=== PATIENT | male | born 1955 | race Caucasian/White ===

== ENCOUNTER → 2017-05-28 | Outpatient (POV) | payer MEDICARE, MEDICAID, SELFPAY | PROVIDERS: Visit Provider Podiatrist | DX: G62.9 Polyneuropathy, unspecified (principal); E11.8 Type 2 diabetes mellitus with unspecified complications; M72.2 Plantar fascial fibromatosis; L84 Corns and callosities | CPT/HCPCS: 99213 ==

== ENCOUNTER 2017-06-11 14:30 | Outpatient (RCR) | payer MEDICARE, MEDICAID, SELFPAY | END 2017-06-26 | LOC: PT 14:30 | PROVIDERS: Visit Provider Podiatrist | DX: M72.2 Plantar fascial fibromatosis (principal) | CPT/HCPCS: G8978; G8979; G8980; 97033; 97035; 97110; 97140; 97161 ==

== ENCOUNTER 2017-07-27 17:34 | Observation (INO) | payer MEDICARE, MEDICAID, SELFPAY ==
[2017-07-27 17:34] VITALS: BP 120/56; PULSE 59; RESP 20; TEMP 36.6; O2SAT 96; BMI 46.8
--- NOTE | 2017-07-27 17:42 | XR_ITS ---
XR chest portable Ordering Physician: Arden Lezama MD Patient Age: 62 years: Male HISTORY: ITS.REASON: CHEST PAIN Chest pain TECHNIQUE: PA and lateral chest COMPARISON :Previous March 23, 2017 also February 2016. FINDINGS Stable chest with nothing definitely acute. Lungs clear with no active disease. No pneumothorax. No pleural effusion. Chest wall unremarkable. T-spine intact and stable. The left AC joint is a more generous than right but unchanged as prior studies. Heart upper normal in size borderline cardiomegaly. Normal pulmonary vascularity Again we see minimal density towards the left cardiac apex which reflects most likely anterior fat pad similar to multiple previous studies IMPRESSION: Stable chest nothing definitely acute. Borderline cardiomegaly.
[2017-07-27 18:03] LABS: Basophils % 0.5 % (0.1-2.0); Eosinophils # 0.3 K/mm3 (0.0-0.4); Eosinophils % 3.5 % (0.1-12.0); Hematocrit 42.3 % (42.0-52.0); Hemoglobin 14.1 g/dL (14.1-18.0); Lymphocytes # 2.4 K/mm3 (0.7-4.5); Lymphocytes % 28.8 K/mm3 (10-50); Mean Corpuscular HGB Conc 33.3 g/dL (31.8-35.4); Mean Corpuscular Hemoglobin 30.7 pg (27.0-31.2); Mean Platelet Volume 8.9 fl (7.4-10.4); Monocytes # 0.5 K/mm3 (0.1-1.0); Monocytes % 6.4 % (1.7-9.3); Neutrophils # 5.1 K/mm3 (1.8-7.8); Neutrophils % 60.8 % (37.0-80.0); Platelet Count 198 K/mm3 (142-424); White Blood Count 8.5 K/mm3 (4.8-10.8)
[2017-07-27 18:31] LABS: Alanine Aminotransferase 30 U/L (12-78); Albumin Level 4.1 gm/dL (3.4-5.0); Albumin/Globulin Ratio 1.3 (1.1-1.8); Alkaline Phosphatase 60 U/L (46-116); Anion Gap 13.3 mEq/L (5-15); Aspartate Amino Transferase 20 U/L (15-37); Bilirubin,Total 0.3 mg/dL (0.2-1.0); Blood Urea Nitrogen 25 mg/dL (7-18); CKMB Relative Index 0.5 U/L (0-4.0); Carbon Dioxide 29 mmol/L (21.0-32.0); Chloride 104 mmol/L (98-107); Creatine Kinase 188 U/L (39-308); Creatine Kinase MB 0.9 mg/ml (0.0-3.6); Creatinine Clearance Estimated 56 mL/min (0-300); Creatinine,Serum 1.33 mg/dL (0.70-1.30); Estimated Glomerular Filt Rate 55 ml/min (>60); GFR (African American) 66 ML/MIN (>60); Globulin 3.2 gm/dl (1.3-3.2); Glucose 150 mg/dL (74-106); Potassium 4.3 mmoL/L (3.5-5.1); Sodium 142 mmol/L (136-145); Total Protein,Serum 7.3 gm/dL (6.4-8.2); Troponin I < 0.02 ng/ml (0.00-0.06)
--- NOTE | 2017-07-27 19:12 | [facility].EDCP ---
ED Disposition Clinical Impression: Chest pain Qualifiers: Chest pain type: precordial pain Qualified Code(s): R07.2 - Precordial pain Chronic kidney disease Qualifiers: Chronic kidney disease stage: unspecified stage Qualified Code(s): N18.9 - Chronic kidney disease, unspecified Disposition: Admitted as Observation Condition on Discharge: Good - Critical Care Critical Care Time: No Attestation: On 07/27/17, the high probability of a clinically significant, sudden or life threatening deterioration of the following system(s) required my full and direct attention, intervention and personal management. The time I documented below is in addition to time spent performing reported procedures but includes the following listed in this critical care notation. Medical Decision Making - Medical Records Medical records reviewed: Yes: I reviewed the patient's medical records. Vital Signs: 07/27/17 17:34 Temperature 97.9 F Temperature Source Temporal Artery Scan Pulse Rate [Right Brachial] 59 L Respiratory Rate 20 Blood Pressure [Right Radial Artery] 120/56 Blood Pressure Mean [Right Radial Artery] 77 Blood Pressure Source [Right Radial Artery] Automatic Cuff Blood Pressure Position [Right Radial Artery] Sitting 02 Sat by Pulse Oximetry 96 Oxygen Delivery Method Room Air - Lab Data Lab results reviewed: Yes: I reviewed the patient's lab results. Lab Results 07/27/17 17:50: WBC 8.5, RBC 4.60, Hgb 14.1, Hct 42.3, MCV 92.0, MCH 30.7, MCHC 33.3, RDW 14.0, Plt Count 198, MPV 8.9, Neut % (Auto) 60.8, Lymph % (Auto) 28.8, [place] % (Auto) 6.4, Eos % (Auto) 3.5, Baso % (Auto) 0.5, Neut # (Auto) 5.1, Lymph # (Auto) 2.4, [place] # (Auto) 0.5, Eos # (Auto) 0.3, Baso # (Auto) 0.0 07/27/17 17:50: Sodium 142, Potassium 4.3, Chloride 104, Carbon Dioxide 29, Anion Gap 13.3, BUN 25 H, Creatinine 1.33 H, Estimated Creat Clear 56, Estimated GFR 55 L, Est GFR ( Amer) 66, Glucose 150 H, Calcium 9.0, Total Bilirubin 0.3, AST 20, ALT 30, Alkaline Phosphatase 60, Total Creatine Kinase 188, CK-MB (CK-2) 0.9, CK-MB (CK-2) Rel Index 0.5, Troponin I < 0.02, Total Protein 7.3, Albumin 4.1, Globulin 3.2, Albumin/Globulin Ratio 1.3 Result diagrams: 07/27/17 17:50 07/27/17 17:50 Orders (Tests/Meds): ED MEDICATIONS Discontinued Medications Generic Name Dose Route Start Last Admin Trade Name Keeley PRN Reason Stop Dose Admin Aspirin 243 mg 07/27/17 18:26 07/27/17 19:03 Aspirin 81mg Chewable Tablet PO 07/27/17 18:27 243 mg ONCE ONE Administration Nitroglycerin 0.4 mg 07/27/17 18:33 07/27/17 19:03 Nitrostat 0.4mg Sl Tablet SL 07/27/17 18:34 0.4 mg ONCE ONE Administration Nitroglycerin 1 gm 07/27/17 19:12 07/27/17 19:20 Nitroglycerin 1 Inch Oint Udp TD 07/27/17 19:13 1 gm ONCE ONE Administration - Radiology Data #1 Image Reviewed: Yes I reviewed the patient's radiology image Preliminary Findings: Normal/NAD - ECG Data Tracing #1 I reviewed this ECG and interpreted as documented below: Ischemic changes: non-specific ST-T wave changes - Physician Consults Physician Consulted: whitney Reason -: Admission - [place] Inquiry Pt receiving controlled substance: No Chest Pain HPI - General Chief Complaint: Chest Pain Stated Complaint: CHEST PAIN Time Seen by Provider: 07/27/17 19:12 Mode of Arrival: EMS Source of Information: Patient, Spouse, Medical Record Limitations: No Limitations Description of Symptoms (Recalled from ER Triage Doc. by RN): PT C/O LEFT CHEST PAIN OF A 7 OUT OF 10 AND FEELS LIKE PRESSURE. PAIN STARTED THURSDAY BUT IS WORSE NOW. - History of Present Illness HPI narrative: pt with chest pain over the last few days - worse tonight with chest pain as pressure and new onset MD complaint: chest pain indicative of cardiac Onset (ago): day(s) Duration: intermittent Activity at onset: during rest Pain location: left chest Severity: moderate Quality: heaviness Re
--- NOTE | 2017-07-27 19:15 | ED_ITS ---
ED Disposition Clinical Impression: Chest pain Qualifiers: Chest pain type: precordial pain Qualified Code(s): R07.2 - Precordial pain Chronic kidney disease Qualifiers: Chronic kidney disease stage: unspecified stage Qualified Code(s): N18.9 - Chronic kidney disease, unspecified Disposition: Admitted as Observation Condition on Discharge: Good - Critical Care Critical Care Time: No Attestation: On 07/27/17, the high probability of a clinically significant, sudden or life threatening deterioration of the following system(s) required my full and direct attention, intervention and personal management. The time I documented below is in addition to time spent performing reported procedures but includes the following listed in this critical care notation. Medical Decision Making - Medical Records Medical records reviewed: Yes: I reviewed the patient's medical records. Vital Signs: 07/27/17 17:34 Temperature 97.9 F Temperature Source Temporal Artery Scan Pulse Rate [Right Brachial] 59 L Respiratory Rate 20 Blood Pressure [Right Radial Artery] 120/56 Blood Pressure Mean [Right Radial Artery] 77 Blood Pressure Source [Right Radial Artery] Automatic Cuff Blood Pressure Position [Right Radial Artery] Sitting 02 Sat by Pulse Oximetry 96 Oxygen Delivery Method Room Air - Lab Data Lab results reviewed: Yes: I reviewed the patient's lab results. Lab Results 07/27/17 17:50: WBC 8.5, RBC 4.60, Hgb 14.1, Hct 42.3, MCV 92.0, MCH 30.7, MCHC 33.3, RDW 14.0, Plt Count 198, MPV 8.9, Neut % (Auto) 60.8, Lymph % (Auto) 28.8 , [place] % (Auto) 6.4, Eos % (Auto) 3.5, Baso % (Auto) 0.5, Neut # (Auto) 5.1, Lymph # (Auto) 2.4, [place] # (Auto) 0.5, Eos # (Auto) 0.3, Baso # (Auto) 0.0 07/27/17 17:50: Sodium 142, Potassium 4.3, Chloride 104, Carbon Dioxide 29, Anion Gap 13.3, BUN 25 H, Creatinine 1.33 H, Estimated Creat Clear 56, Estimated GFR 55 L, Est GFR ( Amer) 66, Glucose 150 H, Calcium 9.0, Total Bilirubin 0.3, AST 20, ALT 30, Alkaline Phosphatase 60, Total Creatine Kinase 188, CK-MB (CK-2) 0.9, CK-MB (CK-2) Rel Index 0.5, Troponin I < 0.02, Total Protein 7.3, Albumin 4.1, Globulin 3.2, Albumin/Globulin Ratio 1.3 Result diagrams: 07/27/17 17:50 07/27/17 17:50 Orders (Tests/Meds): ED MEDICATIONS Discontinued Medications Generic Name Dose Route Start Last Admin Trade Name Keeley PRN Reason Stop Dose Admin Aspirin 243 mg 07/27/17 18:26 07/27/17 19:03 Aspirin 81mg Chewable Tablet PO 07/27/17 18:27 243 mg ONCE ONE Administration Nitroglycerin 0.4 mg 07/27/17 18:33 07/27/17 19:03 Nitrostat 0.4mg Sl Tablet SL 07/27/17 18:34 0.4 mg ONCE ONE Administration Nitroglycerin 1 gm 07/27/17 19:12 07/27/17 19:20 Nitroglycerin 1 Inch Oint Udp TD 07/27/17 19:13 1 gm ONCE ONE Administration - Radiology Data #1 Image Reviewed: Yes I reviewed the patient's radiology image Preliminary Findings: Normal/NAD - ECG Data Tracing #1 I reviewed this ECG and interpreted as documented below: Ischemic changes: non-specific ST-T wave changes - Physician Consults Physician Consulted: whitney Reason -: Admission - [place] Inquiry Pt receiving controlled substance: No Chest Pain HPI - General Chief Complaint: Chest Pain Stated Complaint: CHEST PAIN Time Seen by Provider: 07/27
[2017-07-27 20:00] VITALS: PULSE 60
[2017-07-27 20:45] VITALS: BP 152/81; PULSE 67; RESP 18; TEMP 36.6; O2SAT 96
[2017-07-27 21:27] VITALS: BMI 48.6
[2017-07-27 22:26] VITALS: O2SAT 95
[2017-07-27 22:48] LABS: POC Glucose,Bedside 171 mg/dL
[2017-07-28] VITALS: BP 111/73; PULSE 60; PULSE 64; RESP 15; TEMP 36.6; O2SAT 95
[2017-07-28 00:03] VITALS: O2SAT 97
[2017-07-28 04:00] VITALS: PULSE 50
[2017-07-28 04:08] VITALS: BP 147/52; PULSE 58; RESP 16; TEMP 36.7; O2SAT 94
[2017-07-28 05:39] LABS: POC Glucose,Bedside 113 mg/dL
[2017-07-28 06:15] LABS: Basophils % 0.5 % (0.1-2.0); Eosinophils # 0.2 K/mm3 (0.0-0.4); Hematocrit 38.9 % (42.0-52.0); Lymphocytes # 1.8 K/mm3 (0.7-4.5); Lymphocytes % 28.2 K/mm3 (10-50); Mean Corpuscular HGB Conc 33.3 g/dL (31.8-35.4); Mean Corpuscular Hemoglobin 30.5 pg (27.0-31.2); Mean Corpuscular Volume 91.6 fl (80-94); Mean Platelet Volume 9.2 fl (7.4-10.4); Monocytes # 0.4 K/mm3 (0.1-1.0); Neutrophils # 3.9 K/mm3 (1.8-7.8); Neutrophils % 61.3 % (37.0-80.0); Platelet Count 168 K/mm3 (142-424); Red Blood Count 4.25 M/mm3 (4.60-6.20); White Blood Count 6.3 K/mm3 (4.8-10.8)
[2017-07-28 06:26] LABS: Anion Gap 10.9 mEq/L (5-15); Blood Urea Nitrogen 20 mg/dL (7-18); Carbon Dioxide 29 mmol/L (21.0-32.0); Chloride 108 mmol/L (98-107); Chol/HDL Ratio 3.2 (1-3.5); Cholesterol 107 mg/dL (140-200); Creatinine Clearance Estimated 60 mL/min (0-300); Creatinine,Serum 1.25 mg/dL (0.70-1.30); Estimated Glomerular Filt Rate 59 ml/min (>60); GFR (African American) 71 ML/MIN (>60); Glucose 111 mg/dL (74-106); HDL Cholesterol 33 mg/dL (27-67); LDL Cholesterol 44 mg/dL (0-130); Potassium 3.9 mmoL/L (3.5-5.1); Sodium 144 mmol/L (136-145); Triglycerides 151 mg/dL (30-200); VLDL Cholesterol 30 mg/dL (0-40)
[2017-07-28 06:32] LABS: Troponin I < 0.02 ng/ml (0.00-0.06)
--- NOTE | 2017-07-28 06:44 | CA_ITS ---
PROCEDURE: 2-D M-mode and color Doppler study INDICATIONS FOR THE TEST: Chest pain X COPD Heart Murmur Tobacco Smoking Palpitations Fatigue Syncope Edema HypertensionXDiabetes MellitusX Rheumatic Fever SOB KEANE ObesityXHyperlipidemiaX Family History HD Additional History PATIENT INFORMATION HEIGHT: 68 WEIGHT:320 GENDER: Male B/P:129/85 2-D/M-MODE INTERPRETATION: 2-D MEASUREMENTS OBSERVED VALUES IN CMS Right Ventricular Dimension (RVDd) 2.9 Interventricular Septum (Thickness)(IVsd) 1.1 Left Ventricular Internal Dimensions(LVIDd) 5.7 Left Ventricular Posterior Wall (Thickness)(LVPWd) 1.0 Aortic Root 3.5 Aortic Cusp Separation 2.0 Left Atrial Dimensions (LAD) 3.8 2D 1. Left atrium is mildly enlarged, left ventricle is normal size, there is mild concentric left ventricular hypertrophy, visually estimated ejection fraction 55% with no obvious regional wall motion abnormality. 2. The right atrium and right ventricle are mildly enlarged with normal contractility. 3. The aortic valve is minimally thickened and fibrosed. 4. The mitral and tricuspid valve leaflets are minimally thickened. 5. The pulmonic valve is poorly visualized 6. No significant pericardial effusion noted. DOPPLER INTERROGATION: Doppler interrogation of the aortic, mitral and tricuspid valvular presence of mild mitral and tricuspid regurgitation, tricuspid and jet velocity insufficient for calculation of the right ventricular systolic pressure, grade 1 diastolic dysfunction seen with tissue Doppler evidence of raised left atrial pressure. CONCLUSION: 1. Mildly enlarged left atrium, normal left ventricular size, mild concentric hypertrophy, visually estimated ejection fraction 55% with no obvious regional wall motion abnormality, grade 1 diastolic dysfunction seen with tissue Doppler evidence of raised left atrial pressure. 2. Mild mitral and tricuspid regurgitation 3. No significant pericardial effusion noted.
--- NOTE | 2017-07-28 07:19 | HMH.HP ---
*Admission Date: 07/27/17 *Chief complaint: Chest pain *History of present illness: 62-year-old male with hypertension, diabetes, chronic kidney disease, chronic pain in the back presented to the emergency department with a 2 day history of left-sided pectoral chest pain. Patient cannot give the pain a very good description and describes it as just the pain . Pain was occurring intermittently starting on Thursday but by Thursday (the day of admission) pain became near constant. He had some associated shortness of breath although patient does have underlying COPD and is morbidly obese. When pain became more frequent and intense he presented to the emergency department. Cardiac workup was begun in the emergency department and was unrevealing. Patient was admitted for serial enzymes and cardiology consultation and patient had cardiac catheterization a few years ago by Dr. London and had nonobstructive disease [facility] History Medical History: Reports:: Chronic Obstructive Pulmonary Disease (COPD), Diabetes Mellitus Type 2, Gastroesophageal Reflux Disease(GERD), Hyperlipidemia, Hypertension, MRSA (AFTER RT HIP REPLACEMENT; NEEDED FOLLOW UP SX), Palpitations Denies:: Aneurysm, Anxiety, Asthma, Atrial Fibrillation, Cancer, Congestive Heart Failure, Coronary Artery Disease, Cerebrovascular Accident, Deep Vein Thrombosis, Diabetes Mellitus Type 1, Kidney Stones, Myocardial Infarction, Pulmonary Embolism, Supraventricular Tachycardia, Transient Ischemic Attacks (TIA), Valvular Heart Disease Other Medical History: Reports: Anemia, Arthritis. Denies: Cataracts, Glaucoma, Hypothyroidism, Thyroid Disease Laterality Cases: Left: Other, Bilateral: Arthroscopy Hip, Total Hip Replacement Other Surgeries: Yes: Other (CHOLECYSTECTOMY, LT WRIST) Amputation: No Fractures: No - *Social History Educational Level: Attended High School Smoking Status: Former smoker Tobacco Type: cigarettes #Yrs smoked (if former smoker): 1 Smoking End Date: UNKNOWN; SEVERAL YRS Alcohol Intake: never Alcohol Intake Frequency:: 0-2 drinks per day Occupational Status: retired Housing: other Household Members: spouse - Psychiatric History Expresses thoughts of harming self/others: None Suicide Plan Description: No Plan Pschychiatric History:: Denies:: Anxiety *Family Hx:: Diabetes, Heart Attack, Hyperlipidemia, Hypertension Review of Systems - Review of Systems Review of systems:: pertinent systems reviewed and negative unless documented below - *Cardiovascular Reports chest pain, Reports shortness of breath, Reports leg swelling - *Respiratory Denies change in phlegm color, Denies chest congestion, Denies cough - *Gastrointestinal Denies abdominal pain, Denies belching - *Musculoskeletal Reports abnormal walking, Reports joint pain, Reports back pain - *Neurologic Denies seizure-like activity Meds Home Medications Medication Instructions Recorded Confirmed Type amlodipine 10 mg tablet 10 mg PO QDAY 07/06/17 07/28/17 History amlodipine 5 mg tablet 5 mg PO QDAY 07/06/17 07/28/17 History atenolol 100 mg tablet 100 mg PO QDAY 07/06/17 07/28/17 History citalopram 20 mg tablet 20 mg PO QDAY 07/06/17 07/28/17 History furosemide 40 mg tablet 40 mg PO BID tab 07/06/17 07/28/17 History gabapentin 300 mg capsule 600 mg PO TID cap 07/06/17 07/28/17 History hydrocodone 10 mg-acetaminophen 1 tab PO Q6H PRN 07/06/17 07/28/17 History 325 mg tablet insulin degludec 100 unit/mL (3 120 unit SUB-Q QDAY ml 07/06/17 07/28/17 History mL) subcutaneous pen metoclopramide 10 mg tablet 10 mg PO AC 07/06/17 07/28/17 History omeprazole 40 mg capsule,delayed 40 mg PO QDAY 07/06/17 07/28/17 History release temazepam 30 mg capsule 30 mg PO QHS 07/06/17 07/28/17 History valsartan 320 mg tablet 320 mg PO QDAY 07/06/17 07/28/17 History Allopurinol [Allopurinol 100mg 100 mg PO DAILY 07/27/17 07/28/17 History tablet] Bisoprolol Fumarate 10 mg PO DAILY 07/27/17 07/28/17 History
--- NOTE | 2017-07-28 07:22 | P.HP_ITS ---
*Admission Date: 07/27/17 *Chief complaint: Chest pain *History of present illness: 62-year-old male with hypertension, diabetes, chronic kidney disease, chronic pain in the back presented to the emergency department with a 2 day history of left-sided pectoral chest pain. Patient cannot give the pain a very good description and describes it as just the pain . Pain was occurring intermittently starting on Thursday but by Thursday (the day of admission) pain became near constant. He had some associated shortness of breath although patient does have underlying COPD and is morbidly obese. When pain became more frequent and intense he presented to the emergency department. Cardiac workup was begun in the emergency department and was unrevealing. Patient was admitted for serial enzymes and cardiology consultation and patient had cardiac catheterization a few years ago by Dr. 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 Denies: Cataracts, Glaucoma , Hypothyroidism, Thyroid Disease Laterality Cases: Left: Other, Bilateral: Arthroscopy Hip, Total Hip Replacement Other Surgeries: Yes: Other (CHOLECYSTECTOMY, LT WRIST) Amputation: No Fractures: No - *Social History Educational Level: Attended High School Smoking Status: Former smoker Tobacco Type: cigarettes #Yrs smoked (if former smoker): 1 Smoking End Date: UNKNOWN; SEVERAL YRS Alcohol Intake: never Alcohol Intake Frequency:: 0-2 drinks per day Occupational Status: retired Housing: other Household Members: spouse - Psychiatric History Expresses thoughts of harming self/others: None Suicide Plan Description: No Plan Pschychiatric History:: Denies:: Anxiety *Family Hx:: Diabetes, Heart Attack, Hyperlipidemia, Hypertension Review of Systems - Review of Systems Review of systems:: pertinent systems reviewed and negative unless documented below - *Cardiovascular Reports chest pain, Reports shortness of breath, Reports leg swelling - *Respiratory Denies change in phlegm color, Denies chest congestion, Denies cough - *Gastrointestinal Denies abdominal pain, Denies belching - *Musculoskeletal Reports abnormal walking, Reports joint pain, Reports back pain - *Neurologic Denies seizure-like activity Meds Home Medications Medication Instructions Recorded Confirmed Type amlodipine 10 mg tablet 10 mg PO QDAY 07/06/17 07/28/17 History amlodipine 5 mg tablet 5 mg PO QDAY 07/06/17 07/28/17 History atenolol 100 mg tablet 100 mg PO QDAY 07/06/17 07/28/17 History citalopram 20 mg tablet 20 mg PO QDAY 07/06/17 07/28/17 History furosemide 40 mg tablet 40 mg PO BID tab 07/06/17 07/28/17 History gabapentin 300 mg capsule 600 mg PO TID cap 07/06/17 07/28/17 History hydrocodone 10 mg-acetaminophen 1 tab PO Q6H PRN 07/06/17 07/28/17 History 325 mg tablet insulin degludec 100 unit/mL (3 120 unit SUB-Q QDAY ml 07/06/17 07/28/17 History mL) subcutaneous pen
[2017-07-28 08:00] VITALS: BP 133/80; PULSE 58; PULSE 60; PULSE 61; RESP 14; RESP 18; TEMP 36.7; O2SAT 94; O2SAT 95
--- NOTE | 2017-07-28 09:05 | HMH.CARDCON2 ---
History of Present Illness Consult date: 07/28/17 Requesting physician: Kevin Leon Consult reason: chest pain Chief complaint: chest pain History of present illness: 62-year-old male with hypertension, diabetes, chronic kidney disease, chronic pain in the back presented to the emergency department with a 2 day history of left-sided pectoral chest pain. Patient cannot give the pain a very good description and describes it as just the pain . Pain was occurring intermittently starting on Thursday but by Thursday (the day of admission) pain became near constant. He had some associated shortness of breath although patient does have underlying COPD and is morbidly obese. When pain became more frequent and intense he presented to the emergency department. Cardiac workup was begun in the emergency department and was unrevealing. Patient was admitted for serial enzymes and cardiology consultation and patient had cardiac catheterization a few years ago by Dr. London and had nonobstructive disease. The above per Dr. Leon. Pt relates some worseing of pain with breathing or arm movement but also with walking around his home. Similar symptoms last year for which a stress test was recommended but never done. EKG sinus rhythm with first degree AV block and no acute changes. Troponins normal X 2. Review of Systems - *Cardiovascular Reports chest pain - *Respiratory Reports shortness of breath with activity - *Musculoskeletal Reports back pain - *Neurologic Reports abnormal walking, Denies seizure-like activity [facility] History Medical History: Reports:: Chronic Obstructive Pulmonary Disease (COPD), Diabetes Mellitus Type 2, Gastroesophageal Reflux Disease(GERD), Hyperlipidemia, Hypertension, MRSA (AFTER RT HIP REPLACEMENT; NEEDED FOLLOW UP SX), Palpitations Denies:: Aneurysm, Anxiety, Asthma, Atrial Fibrillation, Cancer, Congestive Heart Failure, Coronary Artery Disease, Cerebrovascular Accident, Deep Vein Thrombosis, Diabetes Mellitus Type 1, Kidney Stones, Myocardial Infarction, Pulmonary Embolism, Supraventricular Tachycardia, Transient Ischemic Attacks (TIA), Valvular Heart Disease Other Medical History: Reports: Anemia, Arthritis. Denies: Cataracts, Glaucoma, Hypothyroidism, Thyroid Disease Laterality Cases: Left: Other, Bilateral: Arthroscopy Hip, Total Hip Replacement Other Surgeries: Yes: Other (CHOLECYSTECTOMY, LT WRIST) Amputation: No Fractures: No - *Social History Educational Level: Attended High School Smoking Status: Former smoker Tobacco Type: cigarettes #Yrs smoked (if former smoker): 1 Smoking End Date: UNKNOWN; SEVERAL YRS Alcohol Intake: never Alcohol Intake Frequency:: 0-2 drinks per day Occupational Status: retired Housing: other Household Members: spouse - Psychiatric History Expresses thoughts of harming self/others: None Suicide Plan Description: No Plan Pschychiatric History:: Denies:: Anxiety *Family Hx:: Diabetes, Heart Attack, Hyperlipidemia, Hypertension Meds Home Medications Medication Instructions Recorded Confirmed Type amlodipine 10 mg tablet 10 mg PO QDAY 07/06/17 07/28/17 History amlodipine 5 mg tablet 5 mg PO QDAY 07/06/17 07/28/17 History atenolol 100 mg tablet 100 mg PO QDAY 07/06/17 07/28/17 History citalopram 20 mg tablet 20 mg PO QDAY 07/06/17 07/28/17 History furosemide 40 mg tablet 40 mg PO BID tab 07/06/17 07/28/17 History gabapentin 300 mg capsule 600 mg PO TID cap 07/06/17 07/28/17 History hydrocodone 10 mg-acetaminophen 1 tab PO Q6H PRN 07/06/17 07/28/17 History 325 mg tablet insulin degludec 100 unit/mL (3 120 unit SUB-Q QDAY ml 07/06/17 07/28/17 History mL) subcutaneous pen metoclopramide 10 mg tablet 10 mg PO AC 07/06/17 07/28/17 History omeprazole 40 mg capsule,delayed 40 mg PO QDAY 07/06/17 07/28/17 History release temazepam 30 mg capsule 30 mg PO QHS 07/06/17 07/28/17 History valsartan 320 mg tablet 320 mg PO QDAY 07/06/17 07/28/17 History Allopurinol [Allopurinol
--- NOTE | 2017-07-28 09:09 | P.CONS_ITS ---
History of Present Illness Consult date: 07/28/17 Requesting physician: Kevin Leon Consult reason: chest pain Chief complaint: chest pain History of present illness: 62-year-old male with hypertension, diabetes, chronic kidney disease, chronic pain in the back presented to the emergency department with a 2 day history of left-sided pectoral chest pain. Patient cannot give the pain a very good description and describes it as just the pain . Pain was occurring intermittently starting on Thursday but by Thursday (the day of admission) pain became near constant. He had some associated shortness of breath although patient does have underlying COPD and is morbidly obese. When pain became more frequent and intense he presented to the emergency department. Cardiac workup was begun in the emergency department and was unrevealing. Patient was admitted for serial enzymes and cardiology consultation and patient had cardiac catheterization a few years ago by Dr. London and had nonobstructive disease. The above per Dr. Leon. Pt relates some worseing of pain with breathing or arm movement but also with walking around his home. Similar symptoms last year for which a stress test was recommended but never done. EKG sinus rhythm with first degree AV block and no acute changes. Troponins normal X 2. Review of Systems - *Cardiovascular Reports chest pain - *Respiratory Reports shortness of breath with activity - *Musculoskeletal Reports back pain - *Neurologic Reports abnormal walking, Denies seizure-like activity [facility] History Medical History: Reports:: Chronic Obstructive Pulmonary Disease (COPD), Diabetes Mellitus Type 2, Gastroesophageal Reflux Disease(GERD), Hyperlipidemia , Hypertension, MRSA (AFTER RT HIP REPLACEMENT; NEEDED FOLLOW UP SX), Palpitations Denies:: Aneurysm, Anxiety, Asthma, Atrial Fibrillation, Cancer, Congestive Heart Failure, Coronary Artery Disease, Cerebrovascular Accident, Deep Vein Thrombosis, Diabetes Mellitus Type 1, Kidney Stones, Myocardial Infarction, Pulmonary Embolism, Supraventricular Tachycardia, Transient Ischemic Attacks ( TIA), Valvular Heart Disease Other Medical History: Reports: Anemia, Arthritis. Denies: Cataracts, Glaucoma , Hypothyroidism, Thyroid Disease Laterality Cases: Left: Other, Bilateral: Arthroscopy Hip, Total Hip Replacement Other Surgeries: Yes: Other (CHOLECYSTECTOMY, LT WRIST) Amputation: No Fractures: No - *Social History Educational Level: Attended High School Smoking Status: Former smoker Tobacco Type: cigarettes #Yrs smoked (if former smoker): 1 Smoking End Date: UNKNOWN; SEVERAL YRS Alcohol Intake: never Alcohol Intake Frequency:: 0-2 drinks per day Occupational Status: retired Housing: other Household Members: spouse - Psychiatric History Expresses thoughts of harming self/others: None Suicide Plan Description: No Plan Pschychiatric History:: Denies:: Anxiety *Family Hx:: Diabetes, Heart Attack, Hyperlipidemia, Hypertension Meds Home Medications Medication Instructions Recorded Confirmed Type amlodipine 10 mg tablet 10 mg PO QDAY 07/06/17 07/28/17 History amlodipine 5 mg tablet 5 mg PO QDAY 07/06/17 07/28/17 History atenolol 100 mg tablet 100 mg PO QDAY 07/06/17 07/28/17 History citalopram 20 mg tablet 20 mg PO QDAY 07/06/17 07/28/17 History furosemide 40 mg tablet 40 mg PO BID tab 07/06/17 07/28/17 History gabapentin 300 mg capsule 600 mg PO TID cap 07/06/17 07/28/17 History hydrocodone 10 mg-acetaminophen 1 tab PO Q6H PRN 07/06/17 07/28/17 History 325 mg tablet
--- NOTE | 2017-07-28 09:43 | P.CONPHA_ITS ---
[facility] Pharmacy VTE Monitoring - Patient Demographics Admission date: 07/27/17 Report Date: 07/28/17 Time: 09:43 Allergies/Adverse Reactions: Patient Allergies No Known Allergies Allergy (Verified 07/27/17 17:41) Height: 1.73 m Weight: 145.15 kg Patient Problems: Current Active Problems Chest pain (Acute) Hypertension (Acute) Chronic kidney disease (Acute) - VTE Risk Labs: VTE Related Lab Results Hgb 13.0 g/dL (14.1-18.0) L 07/28/17 05:35 Hct 38.9 % (42.0-52.0) L 07/28/17 05:35 Plt Count 168 K/mm3 (142-424) 07/28/17 05:35 BUN 20 mg/dL (7-18) H 07/28/17 05:35 Creatinine 1.25 mg/dL (0.70-1.30) 07/28/17 05:35 Estimated Creat Clear 60 mL/min (0-300) 07/28/17 05:35 Was VTE Risk Assessment Performed: Yes VTE Risk Level: High Risk - Prophylaxis VTE Prophylaxis Ordered?: Yes Types of VTE Prophylaxis: TEDS Knee High Location of Applied Device: Bilateral Lower Extremeties - VTE Diagnosis Confirmed Treatment or plan recommended: Continue Current Treatment
[2017-07-28 11:43] VITALS: BP 142/73; PULSE 58; RESP 20; TEMP 37; O2SAT 96
--- NOTE | 2017-07-28 14:11 | HMH.DCSUM ---
General - General Admission date: 07/27/17 Discharge date: 07/28/17 HPI HPI: 62-year-old male with hypertension, diabetes, chronic kidney disease, chronic pain in the back presented to the emergency department with a 2 day history of left-sided pectoral chest pain. Patient cannot give the pain a very good description and describes it as just the pain . Pain was occurring intermittently starting on Thursday but by Thursday (the day of admission) pain became near constant. He had some associated shortness of breath although patient does have underlying COPD and is morbidly obese. When pain became more frequent and intense he presented to the emergency department. Cardiac workup was begun in the emergency department and was unrevealing. Patient was admitted for serial enzymes and cardiology consultation and patient had cardiac catheterization a few years ago by Dr. London and had nonobstructive disease Objective Vital signs: Temp Pulse Resp BP Pulse Ox 98.6 F 58 L 20 142/73 96 07/28/17 11:43 07/28/17 11:43 07/28/17 11:43 07/28/17 11:43 07/28/17 11:43 Hospital Course Hospital Course: Patient was admitted and ruled out for NM. Cardiology recommended stress test which has been scheduled for July 29. Patient was dischrged on IMDUR. Results Labs on day of discharge: Labs from last 24 hours 07/28/17 07/28/17 07/28/17 05:35 05:35 05:35 WBC 6.3 D RBC 4.25 L Hgb 13.0 L Hct 38.9 L MCV 91.6 MCH 30.5 MCHC 33.3 RDW 14.0 Plt Count 168 MPV 9.2 Neut % (Auto) 61.3 Lymph % (Auto) 28.2 Levy % (Auto) 7.0 Eos % (Auto) 3.0 Baso % (Auto) 0.5 Neut # (Auto) 3.9 Lymph # (Auto) 1.8 Levy # (Auto) 0.4 Eos # (Auto) 0.2 Baso # (Auto) 0.0 Sodium 144 Potassium 3.9 Chloride 108 H Carbon Dioxide 29 Anion Gap 10.9 BUN 20 H Creatinine 1.25 Estimated Creat Clear 60 Estimated GFR 59 Est GFR ( Amer) 71 Glucose 111 H D POC Glucose Troponin I < 0.02 Triglycerides 151 Cholesterol 107 L LDL Cholesterol 44 VLDL Cholesterol 30 HDL Cholesterol 33 Cholesterol/HDL Ratio 3.2 07/28/17 07/27/17 05:32 22:14 WBC RBC Hgb Hct MCV MCH MCHC RDW Plt Count MPV Neut % (Auto) Lymph % (Auto) Levy % (Auto) Eos % (Auto) Baso % (Auto) Neut # (Auto) Lymph # (Auto) Levy # (Auto) Eos # (Auto) Baso # (Auto) Sodium Potassium Chloride Carbon Dioxide Anion Gap BUN Creatinine Estimated Creat Clear Estimated GFR Est GFR ( Amer) Glucose POC Glucose 113 171 Troponin I Triglycerides Cholesterol LDL Cholesterol VLDL Cholesterol HDL Cholesterol Cholesterol/HDL Ratio DS: Diagnosis - Discharge Diagnosis (1) Chest pain Status: Acute (2) Chronic kidney disease Status: Acute (3) Coronary arteriosclerosis Status: Acute (4) Hyperlipidemia Status: Acute Meds Home Medications Medication Instructions Recorded Confirmed Type amlodipine 10 mg tablet 10 mg PO DAILY 07/06/17 07/28/17 History furosemide 40 mg tablet 40 mg PO DAILY tab 07/06/17 07/28/17 History gabapentin 300 mg capsule 600 mg PO TID cap 07/06/17 07/28/17 History hydrocodone 10 mg-acetaminophen 1 tab PO Q6H PRN 07/06/17 07/28/17 History 325 mg tablet insulin degludec 100 unit/mL (3 120 unit SQ DAILY ml 07/06/17 07/28/17 History mL) subcutaneous pen metoclopramide 10 mg tablet 10 mg PO AC 07/06/17 07/28/17 History omeprazole 40 mg capsule,delayed 40 mg PO DAILY 07/06/17 07/28/17 History release temazepam 30 mg capsule 30 mg PO QHS 07/06/17 07/28/17 History valsartan 320 mg tablet 320 mg PO DAILY 07/06/17 07/28/17 History Allopurinol [Allopurinol 100mg 100 mg PO DAILY 07/27/17 07/28/17 History tablet] Bisoprolol Fumarate 10 mg PO DAILY 07/27/17 07/28/17 History Glycopyrrolate/Formoterol Fum 2
--- NOTE | 2017-07-28 14:14 | P.DS_ITS ---
General - General Admission date: 07/27/17 Discharge date: 07/28/17 HPI HPI: 62-year-old male with hypertension, diabetes, chronic kidney disease, chronic pain in the back presented to the emergency department with a 2 day history of left-sided pectoral chest pain. Patient cannot give the pain a very good description and describes it as just the pain . Pain was occurring intermittently starting on Thursday but by Thursday (the day of admission) pain became near constant. He had some associated shortness of breath although patient does have underlying COPD and is morbidly obese. When pain became more frequent and intense he presented to the emergency department. Cardiac workup was begun in the emergency department and was unrevealing. Patient was admitted for serial enzymes and cardiology consultation and patient had cardiac catheterization a few years ago by Dr. London and had nonobstructive disease Objective Vital signs: Temp Pulse Resp BP Pulse Ox 98.6 F 58 L 20 142/73 96 07/28/17 11:43 07/28/17 11:43 07/28/17 11:43 07/28/17 11:43 07/28/17 11:43 Hospital Course Hospital Course: Patient was admitted and ruled out for KS. Cardiology recommended stress test which has been scheduled for July 29. Patient was dischrged on IMDUR. Results Labs on day of discharge: Labs from last 24 hours 07/28/17 07/28/17 07/28/17 05:35 05:35 05:35 WBC 6.3 D RBC 4.25 L Hgb 13.0 L Hct 38.9 L MCV 91.6 MCH 30.5 MCHC 33.3 RDW 14.0 Plt Count 168 MPV 9.2 Neut % (Auto) 61.3 Lymph % (Auto) 28.2 Catron % (Auto) 7.0 Eos % (Auto) 3.0 Baso % (Auto) 0.5 Neut # (Auto) 3.9 Lymph # (Auto) 1.8 Catron # (Auto) 0.4 Eos # (Auto) 0.2 Baso # (Auto) 0.0 Sodium 144 Potassium 3.9 Chloride 108 H Carbon Dioxide 29 Anion Gap 10.9 BUN 20 H Creatinine 1.25 Estimated Creat Clear 60 Estimated GFR 59 Est GFR ( Amer) 71 Glucose 111 H D POC Glucose Troponin I < 0.02 Triglycerides 151 Cholesterol 107 L LDL Cholesterol 44 VLDL Cholesterol 30 HDL Cholesterol 33 Cholesterol/HDL Ratio 3.2 07/28/17 07/27/17 05:32 22:14 WBC RBC Hgb Hct MCV MCH MCHC RDW Plt Count MPV Neut % (Auto) Lymph % (Auto) Catron % (Auto) Eos % (Auto) Baso % (Auto) Neut # (Auto) Lymph # (Auto) Catron # (Auto) Eos # (Auto) Baso # (Auto) Sodium Potassium Chloride Carbon Dioxide Anion Gap BUN Creatinine Estimated Creat Clear Estimated GFR Est GFR ( Amer) Glucose POC Glucose 113 171 Troponin I Triglycerides Cholesterol LDL Cholesterol VLDL Cholesterol HDL Cholesterol Cholesterol/HDL Ratio DS: Diagnosis -
--- NOTE | 2017-07-28 14:46 | PC.NURSE ---
Dc instructions given to pt. Informed of stress test @0700 on 07/29/2016 and follow up appt with dr olson on 08/04/2017. Pt instructed to stay npo after midnight and no caffeine starting now. He verbalizes understanding.
[2017-07-28 15:39] LABS: POC Glucose,Bedside 113 mg/dL
== END 2017-07-28 15:03 | disposition home or self-care (01) ==
LOC: ER 18:18 → ICU 19:56
PROVIDERS: Admitting Provider Family Medicine; Emergency Provider Emergency Medicine; PCP Internal Medicine; Visit Provider Family Medicine
DX: R07.2 Precordial pain (principal); N18.9 Chronic kidney disease, unspecified; E11.22 Type 2 diabetes mellitus with diabetic chronic kidney disease; K21.9 Gastro-esophageal reflux disease without esophagitis; J44.9 Chronic obstructive pulmonary disease, unspecified; E66.01 Morbid (severe) obesity due to excess calories; I13.10 Hypertensive heart and chronic kidney disease without heart failure, with stage 1 through stage 4 chronic kidney disease, or unspecified chronic kidney disease; E78.5 Hyperlipidemia, unspecified; Z68.42 Body mass index [BMI] 45.0-49.9, adult; Z86.14 Personal history of Methicillin resistant Staphylococcus aureus infection; Z87.891 Personal history of nicotine dependence; Z82.49 Family history of ischemic heart disease and other diseases of the circulatory system; Z96.643 Presence of artificial hip joint, bilateral; Z90.49 Acquired absence of other specified parts of digestive tract; Z83.3 Family history of diabetes mellitus; Z83.49 Family history of other endocrine, nutritional and metabolic diseases; Z79.82 Long term (current) use of aspirin; Z79.4 Long term (current) use of insulin; Z79.891 Long term (current) use of opiate analgesic; Z79.899 Other long term (current) drug therapy
CPT/HCPCS: 36415; 71046; 80048; 80053; 80061; 82550; 82553; 82962; 84484; 85025; 93005; 93041; 93306; 94761; 99284; G0378

== ENCOUNTER → 2017-07-31 14:29 | Outpatient (CLI) | payer MEDICARE, MEDICAID, SELFPAY ==
[2017-07-31 14:39] LABS: Microscopic, Urine URINE MICROSCOPIC (MICROSCOPIC)
[2017-07-31 15:06] LABS: Basophils % 0.5 % (0.1-2.0); Eosinophils # 0.2 K/mm3 (0.0-0.4); Eosinophils % 3.2 % (0.1-12.0); Hemoglobin 13.5 g/dL (14.1-18.0); Lymphocytes # 1.8 K/mm3 (0.7-4.5); Lymphocytes % 24.6 K/mm3 (10-50); Mean Corpuscular HGB Conc 32.2 g/dL (31.8-35.4); Mean Corpuscular Hemoglobin 29.8 pg (27.0-31.2); Mean Corpuscular Volume 92.7 fl (80-94); Mean Platelet Volume 9.3 fl (7.4-10.4); Monocytes # 0.5 K/mm3 (0.1-1.0); Monocytes % 6.8 % (1.7-9.3); Neutrophils # 4.8 K/mm3 (1.8-7.8); Neutrophils % 64.9 % (37.0-80.0); Platelet Count 196 K/mm3 (142-424); Red Blood Count 4.53 M/mm3 (4.60-6.20); Red Cell Distribution Width 14.1 % (11.5-17.5); White Blood Count 7.3 K/mm3 (4.8-10.8)
[2017-07-31 15:13] LABS: Appearance,Urine CLEAR (Clear); Bilirubin,Urine Negative (Negative); Blood, Urine Negative (Negative); Color,Urine YELLOW (Yellow); Glucose,Urine (UA) Negative (Negative); Ketones,Urine Negative (Negative); Leukocyte Esterase,Urine Negative (Negative); Nitrate,Urine Negative (Negative); Protein,Urine Negative (Negative); Specific Gravity, Urine 1.015 (1.005-1.030); Urobilinogen,Urine 0.2 EU/dl (0.2)
[2017-07-31 15:20] LABS: Creatinine,Urine Random 47 mg/dL (20-320)
[2017-07-31 15:26] LABS: Total Protein,Urine Random 3.6 mg/dL (0.0-11.9)
[2017-07-31 16:11] LABS: Anion Gap 13.8 mEq/L (5-15); Blood Urea Nitrogen 27 mg/dL (7-18); Carbon Dioxide 27 mmol/L (21.0-32.0); Chloride 103 mmol/L (98-107); Creatinine,Serum 1.36 mg/dL (0.70-1.30); Estimated Glomerular Filt Rate 53 ml/min (>60); GFR (African American) 64 ML/MIN (>60); Glucose 175 mg/dL (74-106); Phosphorous 3.7 mg/dL (2.4-4.9); Potassium 4.8 mmoL/L (3.5-5.1); Sodium 139 mmol/L (136-145)
[2017-08-05 18:16] LABS: Vitamin D 25 Hydroxy 18.7 ng/mL (30.0-100.0)
== END ==
PROVIDERS: PCP Family Medicine; Visit Provider Internal Medicine Nephrology
DX: N18.3 Chronic kidney disease, stage 3 (moderate) (principal)
CPT/HCPCS: 36415; 80069; 81001; 82570; 82652; 84155; 85025

== ENCOUNTER → 2017-08-12 14:25 | Outpatient (POV) | payer MEDICARE, MEDICAID, SELFPAY | PROVIDERS: Visit Provider Internal Medicine Nephrology | DX: Z00.00 Encounter for general adult medical examination without abnormal findings (principal) ==

== ENCOUNTER → 2017-08-19 07:25 | Outpatient (CLI) | payer MEDICARE, MEDICAID, SELFPAY ==
--- NOTE | 2017-08-19 07:30 | NM_ITS ---
NM sridhar perf SPECT rest str CLINICAL INDICATION: Chest pain, shortness of breath, hypertension, diabetes, hypercholesterolemia with positive family history ITS.REASON: FIRST DEGREE ATRIOVENTRICULAR BLOCK, CP, DYSPNEA,CHAIM ORDERING PHYSICIAN: Nithin London MD PATIENT AGE: 62 years COMPARISON: None DOSE: 10.55 mCi technetium Myoview intravenously at rest followed by 30 1. 3 subcutaneous edema view following the intravenous ministration of 0.4 mg of Lexiscan. Resting blood pressure is 132/66. Stress blood pressure 119/65. FINDINGS: Ejection fraction is calculated to be 61%. No obvious wall motion abnormalities. SPECT and polar map images reviewed. No fixed defects are evident. There is slight decrease activity within the inferior wall towards the apex stress images which becomes normal on the delayed images suggesting a small area of ischemia. IMPRESSION: 1. Normal ejection fraction of 61%. 2. Reversible abnormality in the inferior wall consistent with an area of ischemia
--- NOTE | 2017-08-19 08:11 | HMH.ITSHM ---
FUROSEMIDE GABAPENTIN OMEPRAZOLE TEMAZEPAM BISOPROLOL ALLOPURINOL HYDROCODON CITALOPRAM BEVESPI INHALER AMLODIPINE ATENOLOL METOCLOPRAMIDE ISOSORBIDE FENOFIBRATE
--- NOTE | 2017-08-19 09:01 | HMH.ITSHM ---
furosemide, gabapentin, omeprazole, temazepam, bisoprolol, allopurinol, hydrocodone, citalopram, bevespi inhaler, valsartan, amlodipine, atenolol, metoclopramide, isosorbide, fenofibrate
== END ==
PROVIDERS: PCP Family Medicine; Visit Provider Internal Medicine
DX: R07.9 Chest pain, unspecified (principal); R06.00 Dyspnea, unspecified; I44.0 Atrioventricular block, first degree; I25.10 Atherosclerotic heart disease of native coronary artery without angina pectoris; I11.9 Hypertensive heart disease without heart failure; R53.83 Other fatigue; I20.8 Other forms of angina pectoris; E11.9 Type 2 diabetes mellitus without complications; E78.5 Hyperlipidemia, unspecified; I10 Essential (primary) hypertension; G47.33 Obstructive sleep apnea (adult) (pediatric)
CPT/HCPCS: 78452; 93017; A9502; J2785

== ENCOUNTER 2017-08-20 14:00 | Outpatient (RCR) | payer MEDICARE, MEDICAID, SELFPAY | END 2017-08-20 14:01 | disposition home or self-care (01) | LOC: PT 14:00 | PROVIDERS: PCP Family Medicine; Visit Provider Orthopaedic Surgery Adult Reconstructive Orthopaedic Surgery | DX: M17.0 Bilateral primary osteoarthritis of knee (principal) | CPT/HCPCS: 97010; 97014; 97033; 97035; 97110; 97161; G0283 ==

== ENCOUNTER → 2017-08-26 11:20 | Outpatient (CLI) | payer MEDICARE, MEDICAID, SELFPAY ==
[2017-08-25 12:27] LABS: Basophils # 0.1 K/mm3 (0-0.2); Basophils % 0.5 % (0.1-2.0); Eosinophils # 0.3 K/mm3 (0.0-0.4); Eosinophils % 3.2 % (0.1-12.0); Hematocrit 40.8 % (42.0-52.0); Hemoglobin 13.5 g/dL (14.1-18.0); Lymphocytes # 2.3 K/mm3 (0.7-4.5); Lymphocytes % 25.5 K/mm3 (10-50); Mean Corpuscular Hemoglobin 30.3 pg (27.0-31.2); Mean Corpuscular Volume 91.6 fl (80-94); Monocytes # 0.6 K/mm3 (0.1-1.0); Monocytes % 6.8 % (1.7-9.3); Neutrophils # 5.7 K/mm3 (1.8-7.8); Neutrophils % 64.1 % (37.0-80.0); Platelet Count 206 K/mm3 (142-424); Red Blood Count 4.45 M/mm3 (4.60-6.20); Red Cell Distribution Width 14.1 % (11.5-17.5); White Blood Count 8.9 K/mm3 (4.8-10.8)
[2017-08-25 16:45] LABS: Anion Gap 14.5 mEq/L (5-15); Blood Urea Nitrogen 20 mg/dL (7-18); Carbon Dioxide 26 mmol/L (21.0-32.0); Chloride 103 mmol/L (98-107); Estimated Glomerular Filt Rate 56 ml/min (>60); GFR (African American) 68 ML/MIN (>60); Glucose 95 mg/dL (74-106); Potassium 4.5 mmoL/L (3.5-5.1); Sodium 139 mmol/L (136-145)
== END ==
PROVIDERS: Visit Provider Nurse Practitioner Family
DX: N18.9 Chronic kidney disease, unspecified (principal); I27.20 Pulmonary hypertension, unspecified; I20.9 Angina pectoris, unspecified; E78.4 Other hyperlipidemia
CPT/HCPCS: 36415; 80048; 85025

== ENCOUNTER 2017-08-31 08:17 | Day surgery (SDC) | payer MEDICARE, MEDICAID, SELFPAY ==
[2017-08-31] VITALS (13 sets, daily range): BP systolic 108–148; BP diastolic 55–80; PULSE 58–66; RESP 18–20; TEMP 36.8; O2SAT 92–98; BMI 48.4
--- NOTE | 2017-08-31 | IR_ITS ---
CARDIAC CATHETERIZATION DATE OF CATHETERIZATION:08/31/2017 9:57 AM PROCEDURES: 1. Left heart catheterization 2. Left ventriculogram 3. Selective coronary angiogram INDICATION FOR TEST: 1. Abnormal Myoview 2. Risk factors for coronary artery disease Informed consent was obtained prior to the procedure. COMPLICATIONS: None ESTIMATED BLOOD LOSS: Less than 10 ml. TECHNIQUE: One percent lidocaine used to anesthetize the right anterior aspect of the wrist. The right radial artery was accessed via the Seldinger technique. A 6 Mohawk sheath was placed in the right radial artery. 2.5 mg of verapamil, 800 mcg of nitroglycerin and 5000 U Heparin were given through the arterial sheath. The trap catheter was also used to perform left heart catheterization and left ventriculography. At the end of the procedure the patient was transferred to the post-op holding area in stable condition for arterial sheath removal. ANGIOGRAPHIC RESULTS: 1. The left main artery normal 2. The left anterior descending artery normal 3. The circumflex artery dominant normal 4. The right coronary artery small nondominant normal 5. The BURTON ventriculogram reveals normal 60-65% 6. The left ventricular end-diastolic pressure moderate to severely elevated at 30 to 35 mmHg IMPRESSION: 1. Normal coronary arteries 2. Normal ejection fraction 3. Moderate to severe diastolic congestive heart failure PLAN: 1. Patient needs medical management for his diastolic heart failure including diuretics and aggressive blood pressure control 2. Risk factor modification 3. Weight-loss 4. Physical therapy
[2017-08-31 09:03] LABS: Basophils # 0.1 K/mm3 (0-0.2); Basophils % 0.7 % (0.1-2.0); Eosinophils # 0.2 K/mm3 (0.0-0.4); Eosinophils % 2.7 % (0.1-12.0); Lymphocytes # 1.6 K/mm3 (0.7-4.5); Lymphocytes % 24.3 K/mm3 (10-50); Mean Corpuscular HGB Conc 33.4 g/dL (31.8-35.4); Mean Corpuscular Hemoglobin 31.4 pg (27.0-31.2); Mean Corpuscular Volume 94.1 fl (80-94); Mean Platelet Volume 8.9 fl (7.4-10.4); Monocytes # 0.5 K/mm3 (0.1-1.0); Monocytes % 6.9 % (1.7-9.3); Neutrophils # 4.2 K/mm3 (1.8-7.8); Neutrophils % 65.3 % (37.0-80.0); Platelet Count 222 K/mm3 (142-424); Red Blood Count 4.46 M/mm3 (4.60-6.20); Red Cell Distribution Width 13.9 % (11.5-17.5); White Blood Count 6.4 K/mm3 (4.8-10.8)
[2017-08-31 09:14] LABS: Anion Gap 5.1 mEq/L (5-15); Blood Urea Nitrogen 17 mg/dL (7-18); Carbon Dioxide 27 mmol/L (21.0-32.0); Chloride 104 mmol/L (98-107); Creatinine Clearance Estimated 57 mL/min (0-300); Creatinine,Serum 1.31 mg/dL (0.70-1.30); Estimated Glomerular Filt Rate 56 ml/min (>60); GFR (African American) 67 ML/MIN (>60); Glucose 148 mg/dL (74-106); Potassium 4.1 mmoL/L (3.5-5.1); Sodium 132 mmol/L (136-145)
== END 2017-08-31 13:30 | disposition home or self-care (01) ==
LOC: CATHLAB 08:19
PROVIDERS: PCP Family Medicine; Visit Provider Internal Medicine
DX: I20.9 Angina pectoris, unspecified (principal); R94.39 Abnormal result of other cardiovascular function study; R06.09 Other forms of dyspnea; R53.83 Other fatigue; I10 Essential (primary) hypertension
CPT/HCPCS: 80048; 85025; 93458; 99152; C1725; C1760; C1769; J1644; Q9967

== ENCOUNTER → 2017-09-30 13:08 | Outpatient (CLI) | payer MEDICARE, MEDICAID, SELFPAY ==
[2017-09-30 14:00] VITALS: PULSE 58
[2017-09-30 14:20] VITALS: BP 115/70; PULSE 56; RESP 18; O2SAT 95
[2017-09-30 14:30] VITALS: BP 150/79; PULSE 76; RESP 30; O2SAT 93
--- NOTE | 2017-09-30 14:38 | CT_ITS ---
CT chest wo con Ordering Physician: Lj Wilson MD Patient Age: 62 years: Male HISTORY: ITS.REASON: DYSPNEA ON EXERTION TECHNIQUE: Axial CT survey performed the chest with no oral nor IV contrast. Sagittal and coronal reconstructions on CT workstation. COMPARISON : Chest film from 920 11/12 and 07/27/2017 utilized FINDINGS Beginning superiorlyIncidental note is made of a large 3 cm x 2.3 cm thyroid nodule lower pole right lobe. : MEDIASTINUM. No hilar nor mediastinal adenopathy or mass. Small calcified nodes at left jessica. Scattered small nodes not of significance.. Mild mediastinal lipomatosis superiorly. The heart upper normal in size . Approaching Borderline cardiomegaly.no remarkable coronary artery calcification no pericardial effusion LUNG MENJIVAR. No focal pneumonia. Mild chronic changes There is some atelectasis and minimal chronic changes on the posterior lower lobes bilaterally. Also minimal linear scarring & atelectasis noted at left lung base. Appear to involve both the lingula & LLL the. Linear character these areas best appreciated on the sagittal image. No vascular engorgement congestion. There is anterior fat pad on the left extending from apex the heart and exaggerate heart size slightly on plain film: PLEURA no pleural effusion. Only scant subtleFatty pleural thickening barely evident upper chest.. Airways. Upper normal thickness No lung masses nor No significant lung nodule. Benign 5.7 mm calcified granuloma posterior L UL Chest wall unremarkable. Mild degenerative changes right glenohumeral joint noted. T-spine intact. Uppermost abdomen. No significant findings. Cholecystectomy.. . IMPRESSION...... No active disease in the chest. Mild chronic changes. Prominent 3 cm thyroid nodule lower pole right lobe thyroid instantly noted. . recommended ultrasound correlation
== END ==
PROVIDERS: PCP Family Medicine; Visit Provider Internal Medicine
DX: R06.09 Other forms of dyspnea (principal)
CPT/HCPCS: 71250; 94060; 94618; 94640

== ENCOUNTER → 2017-10-06 13:12 | Outpatient (POV) | payer MEDICARE, MEDICAID, SELFPAY | PROVIDERS: PCP Family Medicine; Visit Provider Internal Medicine | DX: Z00.00 Encounter for general adult medical examination without abnormal findings (principal) ==

== ENCOUNTER 2018-03-11 13:00 | Outpatient (RCR) | payer MEDICARE, MEDICAID, SELFPAY ==
--- NOTE | 2018-01-05 13:24 | HMH.PTOPEV ---
PT Outpatient Evaluation Rehab PT Outpatient Evaluation Start: 01/05/18 13:13 Freq: Status: Active Protocol: Document 01/05/18 13:14 MARYANN (Rec: 01/05/18 13:23 MARYANN [id number]) Electronically Signed By Jean Vyas, PT 01/05/18 13:14 Outpatient Therapy Subjective History Subjective History Pt reports h/o chronic bilateral foot pain with most recent exacerbation beginning ~3 months ago. Pt reports severe B foot/heel pain with all wt. bearing activities, and reports improved s/s of plantar fasciitis followed skilled PT treatments in the past. Chief Complaint Pain Symptom Type Ache Throb Sharp Dull Symptoms Relieved By Rest/Positioning Symptoms Aggravated By Standing Physical Activity Walking Prior Functional Limitations Standing Walking Current Functional Limitations Standing Walking Symptom Description Intermittent Level of pain today (0-10) 2 Pain scale - at its best (0-10) 0 Pain scale - at its worst (0-10) 7 Ankle/Foot Eval Gait Observation General Gait Pattern Observation Wide Based Gait Palpation Tenderness bilateral Ankle/Foot Palpation Findings Tenderness Ankle/Foot Palpation Overall Comment 3/4 plantar fascia ROM Ankle/Foot Dorsiflexion w/Knee Flexed 0-5 Active Range of Motion (degrees) Ankle/Foot ROM Limitations Soft Tissue Tightness Pain MMT Ankle Dorsiflexion Strength Grade 4- Good- Ankle Plantarflexion Strength Grade 4 Good Foot Eversion Strength Grade 4- Good- Foot Inversion Strength Grade 4 Good Outpatient Therapy Assessment Impairments Problems/Impairmments Palpation Tenderness Impaired Range of Motion Impaired Strength Impaired Gait Pattern Impaired Walking Impaired Standing Subjective C/O Pain Impaired Self Care/Self Management Prognosis Rehab Potential Good Clinical Impression Consistent with Diagnosis Yes Short Term Goals Number of Weeks 4 Decreased Palpation Tenderness Yes: 2/4 Increase Range of Motion
== END 2018-03-11 13:01 | disposition home or self-care (01) ==
LOC: PT 13:00
PROVIDERS: PCP Family Medicine; Visit Provider Podiatrist
DX: M72.2 Plantar fascial fibromatosis (principal)
CPT/HCPCS: 97010; 97014; 97033; 97035; 97110; 97140; 97163; G0283

== ENCOUNTER → 2018-05-04 11:31 | Outpatient (CLI) | payer MEDICARE, MEDICAID, SELFPAY ==
--- NOTE | 2018-05-04 11:34 | XR_ITS ---
XR foot wt bearing RT 3V HISTORY: ITS.REASON: pain ORDERING PHYSICIAN: Ronna Carlos DPM PATIENT AGE: 63 years COMPARISON: None FINDINGS: Minimal osteoarthritic change at the first metatarsophalangeal joint and minimal hypertrophic changes along the dorsal aspect of the cuneiforms. Small calcaneal spur with minimal calcification along the plantar fascial. No fracture or dislocation. No lytic or blastic change. IMPRESSION: Mild degenerative changes, no acute finding
--- NOTE | 2018-05-04 11:34 | XR_ITS ---
XR foot wt bearing LT 3V HISTORY: ITS.REASON: Pain ORDERING PHYSICIAN: Ronna Carlos DPM PATIENT AGE: 63 years COMPARISON: None FINDINGS: There are mild hypertrophic changes along the dorsal aspect of the midfoot and there is borderline pes planus. No fracture or dislocation. No lytic or blastic change. 7 mm calcaneal spur IMPRESSION: Borderline pes planus small with mild degenerative change
== END ==
PROVIDERS: PCP Family Medicine; Visit Provider Podiatrist
DX: M19.071 Primary osteoarthritis, right ankle and foot (principal); M19.072 Primary osteoarthritis, left ankle and foot
CPT/HCPCS: 73630

== ENCOUNTER 2018-06-10 14:00 | Outpatient (RCR) | payer MEDICARE, MEDICAID, SELFPAY ==
--- NOTE | 2018-04-22 14:58 | HMH.PTOPEV ---
PT Outpatient Evaluation Rehab PT Outpatient Evaluation Start: 04/22/18 14:38 Freq: Status: Active Protocol: Document 04/22/18 14:38 SANIA (Rec: 04/22/18 14:58 SANIA [id number]) Electronically Signed By Aashish Palacio, PT 04/22/18 14:38 Outpatient Therapy Subjective History Subjective History Pt reports chronic bilateral foot pain with the most recent exacerbation starting approximately 2 months ago. Pt has completed multiple episodes of PT that provided some significant relief. Pt reports symptom resolved after previous episode, but returned after approximately 1 month. Pt reports non- compliance with previous HEP and anti-inflammatory modalities. Pt reports hx of bilateral WAQAR and HTN. Comorbidites include elevated BMI. Chief Complaint Pain Stiff Symptom Type Burning Symptoms Relieved By Rest/Positioning Ice Activity Symptoms Aggravated By Standing Physical Activity Walking Prior Functional Limitations None Current Functional Limitations Housework Standing Squatting Recreation Activity Walking Stairs Balance Symptom Description Constant but Variable Level of pain today (0-10) 8 Pain scale - at its best (0-10) 5 Pain scale - at its worst (0-10) 9 Ankle/Foot Eval Gait Observation General Gait Pattern Observation Antalgic Gait Assistive Device Ambulation Assistive Device None Palpation Tenderness bilateral Ankle/Foot Palpation Findings Tenderness Ankle/Foot Palpation Overall Comment Metatarsal heads 1-5, calcaneal tubercle ROM left Ankle/Foot Dorsiflexion w/Knee Extended 2 Active Range Motion (degrees) Ankle/Foot Dorsiflexion w/Knee Extended 5 Passive Range (degrees) Ankle/Foot Plantar Flexion Active Range 60 of Motion (degrees) Ankle/Foot Eversion Active Range of 25 Motion (degrees) Ankle/Foot Eversion Passive Range of 25 Motion (degrees) Ankle/Foot In
== END 2018-06-10 14:05 | disposition home or self-care (01) ==
LOC: PT 14:00
PROVIDERS: Visit Provider Podiatrist
DX: M72.2 Plantar fascial fibromatosis (principal)
CPT/HCPCS: 97010; 97014; 97033; 97035; 97163; G0283

== ENCOUNTER → 2018-07-09 16:28 | Outpatient (CLI) | payer MEDICARE, MEDICAID, SELFPAY ==
[2018-07-09 18:05] LABS: Blood Urea Nitrogen 40 mg/dL (7-18); Creatinine,Serum 1.82 mg/dL (0.70-1.30); Estimated Glomerular Filt Rate 38 ml/min (>60); GFR (African American) 46 ML/MIN (>60)
== END ==
PROVIDERS: Visit Provider Podiatrist
DX: R22.41 Localized swelling, mass and lump, right lower limb (principal)
CPT/HCPCS: 36415; 82565; 84520

== ENCOUNTER → 2018-07-12 09:43 | Outpatient (CLI) | payer MEDICARE, MEDICAID, SELFPAY ==
--- NOTE | 2018-07-12 09:45 | MR_ITS ---
MR foot RT wo/w con CLINICAL INDICATION: Foot pain with fluctuating palpable abnormality along the dorsal aspect of the foot. Diabetic ITS.REASON: evaluate: soft tissue mass/cyst over the TMT ORDERING PHYSICIAN: Ronna Carlos DPM PATIENT AGE: 63 years Comparison: 05/04/2018 TECHNIQUE: Multiplanar multiecho sequences are performed without and with gadolinium enhancement FINDINGS: There is moderate degree of motion artifact which does obscure fine detail. A marker is placed at the palpable abnormality There is thickening of the subcutaneous tissues along the dorsal aspect of the foot. This is superficial to and overlies second cuneiforms. This is isointense on T1 with slight increased T2 signal and demonstrates contrast enhancement. This area not well circumscribed and does not have cystic properties. This is superficial to the extensor digitorum longus and brevis tendons. There are cystic changes involving the navicular as well as the intermediate and lateral cuneiform and the proximal aspect of the second metatarsal. The cystic change in the proximal aspect of the second metatarsal measures 14 mm. Bone marrow edema with enhancement involves the proximal shaft of the second metatarsal. There is also some bone marrow edema with enhancement of the intermediate and lateral cuneiform. These findings are consistent with Charcot joint. There is also some mild bone marrow edema of the navicular distally and dorsally. There are osteoarthritic changes of the first metatarsophalangeal joint. The flexor and extensor tendons have an unremarkable appearance with some decreased resolution on the large field of view images. Small amount fluid is present at the posterior talocalcaneal region. IMPRESSION: 1. The findings are consistent with Charcot joint of the mid foot as described above with involvement of the navicular, intermediate and lateral cuneiform as well as the proximal aspect of the second metatarsal. Cannot exclude the possibility of underlying osteomyelitis colitis of the proximal aspect of the second metatarsal or the cuneiforms. 2. Soft tissue swelling noted along the dorsal aspect of the foot superficial to the intermediate cuneiform and could be related to phlegmonous changes from underlying infection/inflammation. No obvious abscess or sinus tract evident.
--- NOTE | 2018-07-12 10:57 | HMH.ITSHM ---
Current Home Medications as stated by this patient Hakeem Cat or outside sales representative insurance. []HYDROCODONE BISOPROLOL ALLUPURINOL FUROSEMIDE BEVESPI TRESIBA SPIRONOLACTONE OMEPRAZOLE [place] ISOSORBIDE TEMAZEPAM AMLODIPINE CITALOPRAM GABAPENTIN METOCLOPRAMIDE FENOFIBRATE
== END ==
PROVIDERS: PCP Family Medicine; Visit Provider Podiatrist
DX: R22.41 Localized swelling, mass and lump, right lower limb (principal)
CPT/HCPCS: 73720; A9576

== ENCOUNTER → 2018-07-29 16:26 | Outpatient (CLI) | payer MEDICARE, MEDICAID, SELFPAY ==
--- NOTE | 2018-07-29 16:35 | XR_ITS ---
XR foot wt bearing LT 3V HISTORY: Foot pain ITS.REASON: Charcot ORDERING PHYSICIAN: Ronna Carlos DPM PATIENT AGE: 63 years COMPARISON: None FINDINGS: No fracture or dislocation. No lytic or blastic change. There is normal mineralization.. There are mild osteoarthritic changes of the second metatarsal tarsal joint. There is normal alignment. There is borderline pes planus. There is a small calcaneal spur. Mild hypertrophic changes are present at the distal dorsal aspect of the tibia. IMPRESSION: Mild degenerative changes with borderline pes planus
--- NOTE | 2018-07-29 16:35 | XR_ITS ---
XR foot wt bearing RT 3V HISTORY: Foot pain ITS.REASON: Charcot ORDERING PHYSICIAN: Ronna Carlos DPM PATIENT AGE: 63 years COMPARISON: None FINDINGS: Minimal hallux valgus with minimal osteoarthritic change of the first metatarsal phalangeal joint. Osteoarthritic changes are present at the navicular/medial cuneiform with some minimal subarticular cystic changes at the distal aspect of the navicular. Normal alignment. Minimal calcification of plantar fascial with small calcaneal spur. IMPRESSION: Mild hallux valgus with osteoarthritis of the first metatarsophalangeal joint and the navicular first cuneiform joint with mild subarticular cystic changes of the navicular
== END ==
PROVIDERS: PCP Family Medicine; Visit Provider Podiatrist
DX: E11.610 Type 2 diabetes mellitus with diabetic neuropathic arthropathy (principal)
CPT/HCPCS: 73630

== ENCOUNTER → 2018-08-19 09:42 | Outpatient (CLI) | payer MEDICARE, MEDICAID, SELFPAY ==
--- NOTE | 2018-08-19 09:46 | XR_ITS ---
XR foot wt bearing RT 3V HISTORY: Right foot pain ITS.REASON: follow-up ORDERING PHYSICIAN: Ronna Carlos DPM PATIENT AGE: 63 years COMPARISON: 07/29/2018 FINDINGS: Weightbearing views are performed. Minimal hypertrophic changes involve the distal aspect of the first metatarsal. There are mild osteoarthritic changes of the second and third metatarsal tarsal junction with some decreased density at the base of the second metatarsal with osteoarthritic changes also at the navicular medial cuneiform junction some mild subarticular cystic changes as before. No fracture or dislocation. There is also minimal calcification of the plantar fascia near a small calcaneal spur. There is normal alignment. There is some soft tissue protuberance along the posterior aspect of the cuneiforms IMPRESSION: Overall no change with no acute finding. There are osteoarthritic changes of the midfoot as described above
== END ==
PROVIDERS: PCP Family Medicine; Visit Provider Podiatrist
DX: E11.610 Type 2 diabetes mellitus with diabetic neuropathic arthropathy (principal); M79.671 Pain in right foot
CPT/HCPCS: 73630

== ENCOUNTER → 2018-08-27 16:26 | Outpatient (CLI) | payer MEDICARE, MEDICAID, SELFPAY ==
[2018-08-27 16:30] LABS: Microscopic, Urine URINE MICROSCOPIC (MICROSCOPIC)
[2018-08-27 17:26] LABS: Appearance,Urine CLEAR (Clear); Bilirubin,Urine Negative (Negative); Blood, Urine Negative (Negative); Color,Urine YELLOW (Yellow); Glucose,Urine (UA) Negative (Negative); Ketones,Urine Negative (Negative); Leukocyte Esterase,Urine Negative (Negative); Nitrate,Urine Negative (Negative); Protein,Urine Negative (Negative); Urobilinogen,Urine 0.2 EU/dl (0.2)
[2018-08-27 17:33] LABS: Creatinine,Urine Random 70 mg/dL (20-320); Total Protein,Urine Random 5.6 mg/dL (0.0-11.9)
[2018-08-27 17:40] LABS: Bacteria,Urine Trace /lpf; WBC,Urine Occasional #/hpf (0-3)
[2018-08-27 17:51] LABS: Basophils % 0.5 % (0.1-2.0); Eosinophils # 0.2 K/mm3 (0.0-0.4); Eosinophils % 1.9 % (0.1-12.0); Hematocrit 37.7 % (42.0-52.0); Hemoglobin 12.7 g/dL (14.1-18.0); Lymphocytes # 1.9 K/mm3 (0.7-4.5); Lymphocytes % 19.8 % (10-50); Mean Corpuscular HGB Conc 33.7 g/dL (31.8-35.4); Mean Corpuscular Hemoglobin 31.2 pg (27.0-31.2); Mean Corpuscular Volume 92.8 fl (80-94); Mean Platelet Volume 8.8 fl (7.4-10.4); Monocytes # 0.5 K/mm3 (0.1-1.0); Monocytes % 5.4 % (1.7-9.3); Neutrophils # 6.9 K/mm3 (1.8-7.8); Neutrophils % 72.6 % (37.0-80.0); Platelet Count 259 K/mm3 (142-424); Red Blood Count 4.07 M/mm3 (4.60-6.20); Red Cell Distribution Width 14.3 % (11.5-17.5); White Blood Count 9.5 K/mm3 (4.8-10.8)
[2018-08-27 21:13] LABS: Anion Gap 18.1 mEq/L (5-15); Blood Urea Nitrogen 51 mg/dL (7-18); Calcium 9.6 mg/dL (8.5-10.1); Carbon Dioxide 23 mmol/L (21.0-32.0); Chloride 98 mmol/L (98-107); Creatinine,Serum 2.15 mg/dL (0.70-1.30); Estimated Glomerular Filt Rate 31 ml/min (>60); GFR (African American) 38 ML/MIN (>60); Glucose 215 mg/dL (74-106); Phosphorous 4.5 mg/dL (2.4-4.9); Potassium 5.1 mmoL/L (3.5-5.1); Sodium 134 mmol/L (136-145); Uric Acid 8.4 mg/dL (2.6-7.2)
[2018-08-30 13:26] LABS: Calcium, Ionized 5.4 mg/dL (4.5-5.6); Vitamin D 25 Hydroxy 12.3 ng/mL (30.0-100.0)
[2018-08-30 16:45] LABS: Parathyroid Hormone Intact 33 pg/mL (15-65)
== END ==
PROVIDERS: Visit Provider Internal Medicine Nephrology
DX: N18.3 Chronic kidney disease, stage 3 (moderate) (principal)
CPT/HCPCS: 36415; 80069; 81001; 82330; 82570; 82652; 83970; 84155; 84550; 85025

== ENCOUNTER → 2018-08-30 12:48 | Outpatient (POV) | payer MEDICARE, MEDICAID, SELFPAY | PROVIDERS: Visit Provider Internal Medicine Nephrology | DX: Z00.00 Encounter for general adult medical examination without abnormal findings (principal) ==

== ENCOUNTER → 2018-10-13 13:25 | Outpatient (CLI) | payer MEDICARE, MEDICAID, SELFPAY ==
--- NOTE | 2018-10-13 13:29 | XR_ITS ---
XR foot wt bearing RT 3V HISTORY: ITS.REASON: diabetic charcot ORDERING PHYSICIAN: Ronna Carlos DPM PATIENT AGE: 63 years COMPARISON: 08/19/2018 FINDINGS: There is mild hallux valgus with mild osteoarthritic change of the first MTP joint. Osteosclerosis with degenerative changes are present at the navicular cuneiform joint. Subarticular cystic changes are present at the proximal aspect of the second metatarsal. No fracture or dislocation evident. No bony erosive process. There is some calcification of the plantar fascia as before IMPRESSION: Midfoot arthritic changes which are stable
--- NOTE | 2018-10-13 13:29 | XR_ITS ---
XR foot wt bearing LT 3V HISTORY: ITS.REASON: diabetic charcot ORDERING PHYSICIAN: Ronna Carlos DPM PATIENT AGE: 63 years COMPARISON: 07/29/2018 FINDINGS: There are mild midfoot arthritic changes with osteosclerosis and minimal hypertrophic change. No fracture or dislocation. No lytic or blastic change. Normal alignment. Small calcaneal spur. IMPRESSION: Mild midfoot arthritic change
== END ==
PROVIDERS: PCP Family Medicine; Visit Provider Podiatrist
DX: E11.610 Type 2 diabetes mellitus with diabetic neuropathic arthropathy (principal); Z79.4 Long term (current) use of insulin
CPT/HCPCS: 73630

== ENCOUNTER 2018-10-14 15:00 | Outpatient (RCR) | payer MEDICARE, MEDICAID, SELFPAY ==
--- NOTE | 2018-08-26 15:14 | HMH.PTOPEV ---
PT Outpatient Evaluation Rehab PT Outpatient Evaluation Start: 08/26/18 13:24 Freq: Status: Active Protocol: Document 08/26/18 14:51 PHORNE (Rec: 08/26/18 15:14 PHORNE [id number]) Electronically Signed By Chuckie Richey, PT 08/26/18 14:51 Outpatient Therapy Subjective History Subjective History Pt is a 63 yowm with complaints of B foot pain on medial side and across dorsal metatarsals that is 8/10. Pt reports R foot hurts worse than L. Pt reports pain began 2 months ago and gradually gotten worse. Pt reports seeing physician and they refered to PT with diagnosis of plantar fasciitis and charcot foot. Pt reports pain at best is 4/10 and at worst 8 /10. Pt reports pain is worse in the morning and decreases throughout the day. Pt reports having diabetes and HTN and denies other comorbidities. Pt reports having B WAQAR and gallbladder removal. Pt demonstrated pitting edema in B legs. Pt exhibits knot on dorsal metatarsals of the right foot. Chief Complaint Pain Weakness Symptom Type Ache Symptoms Relieved By Rest/Positioning Symptoms Aggravated By Standing Physical Activity Twisting Walking Prior Functional Limitations Standing Squatting Recreation Activity Walking Stairs Balance Current Functional Limitations Standing Squatting Recreation Activity Walking Stairs Balance Symptom Description Constant but Variable Level of pain today (0-10) 8 Pain scale - at its best (0-10) 4 Pain scale - at its worst (0-10) 8 Ankle/Foot Eval Gait Observation General Gait Pattern Observation Antalgic Gait Decrease Weight Bear (R) Assistive Device Ambulation Assistive Device
== END 2018-10-14 15:05 | disposition home or self-care (01) ==
LOC: PT 15:00
PROVIDERS: Visit Provider Podiatrist
DX: M72.2 Plantar fascial fibromatosis (principal); E11.610 Type 2 diabetes mellitus with diabetic neuropathic arthropathy; Z79.4 Long term (current) use of insulin
CPT/HCPCS: 97010; 97014; 97033; 97035; 97110; 97163; G0283

== ENCOUNTER → 2018-11-16 19:57 | Outpatient (CLI) | payer MEDICARE, MEDICAID, SELFPAY | PROVIDERS: PCP Family Medicine; Visit Provider Specialist | DX: G47.33 Obstructive sleep apnea (adult) (pediatric) (principal) | CPT/HCPCS: 95811 ==

== ENCOUNTER → 2018-11-25 13:49 | Outpatient (CLI) | payer MEDICARE, MEDICAID, SELFPAY ==
[2018-11-25 15:47] LABS: Anion Gap 14.8 mEq/L (5-15); Blood Urea Nitrogen 23 mg/dL (7-18); Calcium 9.3 mg/dL (8.5-10.1); Carbon Dioxide 26 mmol/L (21.0-32.0); Chloride 100 mmol/L (98-107); Creatinine,Serum 1.67 mg/dL (0.70-1.30); Estimated Glomerular Filt Rate 42 ml/min (>60); GFR (African American) 51 ML/MIN (>60); Glucose 125 mg/dL (74-106); Phosphorous 4.6 mg/dL (2.4-4.9); Potassium 4.8 mmoL/L (3.5-5.1); Sodium 136 mmol/L (136-145)
== END ==
PROVIDERS: Visit Provider Internal Medicine Nephrology
DX: N18.3 Chronic kidney disease, stage 3 (moderate) (principal)
CPT/HCPCS: 36415; 80069

== ENCOUNTER → 2019-01-05 15:30 | Outpatient (POV) | payer MEDICARE, MEDICAID, SELFPAY | PROVIDERS: Visit Provider Internal Medicine Nephrology | DX: Z00.00 Encounter for general adult medical examination without abnormal findings (principal) ==

== ENCOUNTER → 2019-05-09 14:44 | Outpatient (CLI) | payer MEDICARE, MEDICAID, SELFPAY ==
--- NOTE | 2019-05-09 14:49 | XR_ITS ---
PROCEDURE: XR FOOT WT BEARING LT 3V CLINICAL INDICATION: charcot Pain and swelling COMPARISON: [id number] XR foot wt bearing RT 3V from 07/29/2018 FTWBR3 XR foot wt bearing RT 3V from 08/19/2018 FTWBR3 XR foot wt bearing RT 3V from 10/13/2018 [id number] XR foot wt bearing LT 3V from 10/13/2018 FINDINGS: No fracture or dislocation. Degenerative changes are present at the navicular cuneiform joint and at the 2nd and 3rd metatarsal tarsal joint with some increase in pes planus. Small calcaneal spur noted IMPRESSION: Degenerative changes in the midfoot with mild pes planus Dictated by: Javi Goins MD 05/09/2019 16:26 Electronically signed by Javi Goins MD in [place] 05/09/2019 16:26
--- NOTE | 2019-05-09 14:49 | XR_ITS ---
PROCEDURE: XR FOOT WT BEARING RT 3V CLINICAL INDICATION: charcot Pain and swelling COMPARISON: [id number] XR foot wt bearing RT 3V from 07/29/2018 FTWBR3 XR foot wt bearing RT 3V from 08/19/2018 FTWBR3 XR foot wt bearing RT 3V from 10/13/2018 FTWBL3 XR foot wt bearing LT 3V from 10/13/2018 FINDINGS: Osteoarthritic changes are present at the 1st metatarsophalangeal joint. There are degenerative changes at the navicular cuneiform joint and at the tarsometatarsal junction of the 1st 2nd and 3rd metatarsals with some demineralization and pes planus which is increased. There is some soft tissue swelling along the dorsal aspect of the midfoot. Plantar calcification noted and may represent chronic plantar fasciitis IMPRESSION: Degenerative changes as described above with slight increase in pes planus and soft tissue swelling along the dorsal aspect of the midfoot with possible plantar fasciitis Dictated by: Javi Goins MD 05/09/2019 16:28 Electronically signed by Javi Goins MD in [place] 05/09/2019 16:28
[2019-05-09 16:14] LABS: Creatinine,Urine Random 49 mg/dL (20-320); Total Protein,Urine Random 6.8 mg/dL (0.0-11.9)
[2019-05-09 18:20] LABS: Albumin Level 3.9 gm/dL (3.4-5.0); Anion Gap 14.6 mEq/L (5-15); Blood Urea Nitrogen 25 mg/dL (7-18); Carbon Dioxide 25 mmol/L (21.0-32.0); Chloride 101 mmol/L (98-107); Creatinine,Serum 1.65 mg/dL (0.70-1.30); Estimated Glomerular Filt Rate 42 ml/min (>60); GFR (African American) 51 ML/MIN (>60); Glucose 99 mg/dL (74-106); Phosphorous 4.2 mg/dL (2.4-4.9); Potassium 4.6 mmoL/L (3.5-5.1); Sodium 136 mmol/L (136-145)
[2019-05-11 12:20] LABS: Vitamin D 25 Hydroxy 16.2 ng/mL (30.0-100.0)
== END ==
PROVIDERS: PCP Family Medicine; Referring Provider Internal Medicine Nephrology; Visit Provider Podiatrist
DX: E11.610 Type 2 diabetes mellitus with diabetic neuropathic arthropathy (principal); Z79.4 Long term (current) use of insulin
CPT/HCPCS: 36415; 73630; 80069; 82570; 82652; 84155

== ENCOUNTER → 2019-05-16 14:59 | Outpatient (POV) | payer MEDICARE, MEDICAID, SELFPAY | PROVIDERS: Visit Provider Internal Medicine Nephrology | DX: Z00.00 Encounter for general adult medical examination without abnormal findings (principal) ==

== ENCOUNTER 2019-09-13 14:30 | Outpatient (RCR) | payer MEDICARE, MEDICAID, SELFPAY | END 2019-09-13 14:35 | disposition home or self-care (01) | LOC: PT 14:30 | PROVIDERS: PCP Family Medicine; Visit Provider Nurse Practitioner | DX: M72.2 Plantar fascial fibromatosis (principal) | CPT/HCPCS: 97010; 97014; 97033; 97035; 97163; G0283 ==

== ENCOUNTER → 2019-11-14 13:25 | Outpatient (CLI) | payer MEDICARE, MEDICAID, SELFPAY | PROVIDERS: PCP Nurse Practitioner Family; Visit Provider Nurse Practitioner Family | DX: G47.33 Obstructive sleep apnea (adult) (pediatric) (principal); R51 Headache | CPT/HCPCS: 94762 ==

== ENCOUNTER 2019-12-15 16:00 | Outpatient (RCR) | payer MEDICARE, MEDICAID, SELFPAY ==
--- NOTE | 2019-11-16 15:41 | HMH.PTOPEV ---
PT Outpatient Evaluation Rehab PT Outpatient Evaluation Start: 11/16/19 15:29 Freq: Status: Active Protocol: Document 11/16/19 15:29 SANIA (Rec: 11/16/19 15:41 SANIA [id number]) Electronically Signed By Aashish Palacio, PT 11/16/19 15:29 Outpatient Therapy Subjective History Subjective History Patient is a 64 year old male presenting to outpatient PT with reports of chronic foot pain starting approx 4 years ago. Most recent exacerbation starting 2 weeks ago. Hx of multiple episodes of PT for same symptoms. Symptoms consistent with plantar fasciitis. No recent imaging to report. Comorbidites include hx of HLD, HTN, diabetes, B WAQAR, cholecystectomy and heart cath . Chief Complaint Pain,Stiff Symptom Type Ache Symptoms Relieved By Rest/Positioning,Ice, Prescription Meds Symptoms Aggravated By Standing,Physical Activity, Walking Prior Functional Limitations Housework,Standing,Recreation Activity,Walking,Stairs, Balance Current Functional Limitations Housework,Standing,Recreation Activity,Walking,Stairs, Balance Symptom Description Constant but Variable Level of pain today (0-10) 8 Pain scale - at its best (0-10) 6 Pain scale - at its worst (0-10) 10 Ankle/Foot Eval Gait Observation General Gait Pattern Observation Antalgic Gait Assistive Device Ambulation Assistive Device None Palpation Tenderness bilateral Ankle/Foot Palpation Findings Tenderness Ankle/Foot Palpation Overall Comment Calcaneal tubercle 3/4 ROM left Ankle/Foot Dorsiflexion w/Knee Extended -4 Active Range Motion (degrees) Ankle/Foot Plantar Flexion Active Range WNL of Motion (degrees) Ankle/Foot Eversion Active Range of 12 Motion (degrees) Ankle/Foot Inversion Active Range of 24 Motion (degrees) Ankle/Foot ROM Limitations Soft Tissue Tightness Great Toe ROM Reason Not Measured Within Functional Limits right Ankle/Foot Dorsiflexion w/Knee Extended -3 Active Range Motion (degrees) Ankle/Foot Plantar Flexion Active Range WNL of Motion (degrees) Ankle/Foot Eversion Active Range of 18 Motion (degrees) Ankle/Foot Inversion Active Range of 22 Motion
== END 2019-12-15 16:05 | disposition home or self-care (01) ==
LOC: PT 16:00
PROVIDERS: Visit Provider Nurse Practitioner
DX: M72.2 Plantar fascial fibromatosis (principal)
CPT/HCPCS: 97010; 97014; 97033; 97035; 97110; 97163; G0283

== ENCOUNTER → 2020-01-09 12:14 | Outpatient (CLI) | payer MEDICARE, MEDICAID, SELFPAY ==
--- NOTE | 2020-01-09 12:34 | XR_ITS ---
PROCEDURE: XR CERVICAL SPINE 5V CLINICAL INDICATION: NECK PAIN Left-sided neck pain COMPARISON: No exams were available for comparison FINDINGS: There is kyphosis of the thoracocervical junction. Mild anterolisthesis C3 on 4 and C4 on C5 of 3 mm each. Degenerative disc disease is present at C3-C4 C4-C5 C5-C6 and C6-C7. Anterior osteophytes are noted from C3-C7. Facet and uncovertebral hypertrophy noted with right-sided foraminal narrowing from C2 T1 and left-sided foraminal narrowing at C4-C5. The foraminal narrowing is somewhat difficult to evaluate due to the restrictions in obliquity. No obvious fracture or dislocation. No lytic or blastic change. IMPRESSION: Cervical spondylosis with kyphosis at the thoracocervical junction with multilevel degenerative disc disease and facet and uncovertebral hypertrophy with foraminal narrowing. Dictated by: Javi Goins MD 01/09/2020 12:54 Electronically signed by Javi Goins MD in [place] 01/09/2020 12:54
[2020-01-09 14:23] LABS: Coronavirus 19 IgG Antibody Negative (Negative); Coronavirus 19 IgM Antibody Negative (Negative)
== END ==
LOC: LAB 12:16 → RAD 12:29
PROVIDERS: PCP Family Medicine; Referring Provider Specialist; Visit Provider Family Medicine
DX: Z01.818 Encounter for other preprocedural examination; M54.2 Cervicalgia; G47.33 Obstructive sleep apnea (adult) (pediatric)
CPT/HCPCS: 36415; 72050; 86328

== ENCOUNTER → 2020-02-10 15:08 | Outpatient (CLI) | payer MEDICARE, MEDICAID, SELFPAY ==
--- NOTE | 2020-02-10 15:08 | MR_ITS ---
PROCEDURE: MR HEAD/BRAIN WO CON CLINICAL INDICATION: chronic headache Head pain x2-3months. No injury. Dizziness. Prior mri 07-25-16 COMPARISON: MR [facility] MRI-BRAIN W/WO from 07/25/2016 TECHNIQUE: Routine multiplanar multi echo sequences are performed without gadolinium enhancement. FINDINGS: No midline shift, mass effect intracranial hemorrhage or hydrocephalus. No evidence of acute infarction. There is generalized atrophy. Scattered periventricular and subcortical T2 white matter hyperintensities noted consistent with ischemic gliotic change from microvascular disease. Below pontine angle, cerebellum, and brainstem have an unremarkable appearance. Partial empty sella as a normal variant noted. Optic chiasm corpus callosum and craniocervical junction have an unremarkable appearance. No mastoid effusion or sinus air-fluid level. IMPRESSION: 1. No acute intracranial findings. 2. Senescent changes with atrophy and periventricular ischemic gliotic change. Dictated by: Javi Goins MD 02/11/2020 07:28 Javi Goins MD in [place] 02/11/2020 07:28
== END ==
PROVIDERS: PCP Family Medicine; Visit Provider Specialist
DX: G44.209 Tension-type headache, unspecified, not intractable (principal); G47.33 Obstructive sleep apnea (adult) (pediatric)
CPT/HCPCS: 70551

== ENCOUNTER 2020-02-23 15:00 | Outpatient (RCR) | payer MEDICARE, MEDICAID, SELFPAY ==
--- NOTE | 2020-01-20 14:10 | HMH.PTOPEV ---
PT Outpatient Evaluation Rehab PT Outpatient Evaluation Start: 01/20/20 13:08 Freq: Status: Active Protocol: Document 01/20/20 13:27 MARYANN (Rec: 01/20/20 14:10 MARYANN [id number]) Electronically Signed By Jean Vyas, PT 01/20/20 13:27 Outpatient Therapy Subjective History Subjective History Pt reports insidious onset neck pain beginning ~1 month ago. Pt reports pain has progressed w/R>L sided neck pain as well as daily cervicogenic DIEZ'S. Pt reports recent Xrays of neck, which revealed DDD of the cervical spine, however, pt reports no radicular s/s. Chief Complaint Pain,Stiff Symptom Type Ache,Throb,Sharp,Dull Symptoms Relieved By Rest/Positioning Symptoms Aggravated By Physical Activity,Lifting Prior Functional Limitations Lifting,Housework Current Functional Limitations Lifting,Housework Symptom Description Constant but Variable Level of pain today (0-10) 8 Pain scale - at its best (0-10) 5 Pain scale - at its worst (0-10) 10 Cervical Eval Palpation Cervical Muscles R Cervical Paraspinal,L Cervical Paraspinal,R Suboccipital,L Suboccipital,R CT Junction,L CT Junction,R Upper Trapezius,L Upper Trapezius Cervical/Thoracic Palpation Findings Tenderness,Trigger Point, Muscle Guarding Posture Head/C-Spine Posture Sitting Position Flexed Head/C-Spine Posture Standing Position Flexed Flexibility Deficits Upper Trapezius Muscle Length (R) Moderate Tightness,(L) Moderate Tightness Scalene Group Muscle Length (R) Moderate Tightness,(L) Moderate Tightness Pectoralis Major Muscle Length (R) Severe Tightness,(L) Severe Tightness Pectoralis Minor Muscle Length (R) Severe Tightness,(L) Severe Tightness Passive Joint Mobility Cervical PIVM Dec: R OA L OA R AA L AA R C2/3 L C2/3 R C3/4 L C3/4 R C4/5 L C4/5 R C5/6 L C5
== END 2020-02-23 15:05 | disposition home or self-care (01) ==
LOC: PT 15:00
PROVIDERS: PCP Family Medicine; Visit Provider Specialist
DX: R51 Headache (principal); Z68.42 Body mass index [BMI] 45.0-49.9, adult
CPT/HCPCS: 20560; 97010; 97014; 97035; 97110; 97140; 97163; G0283

== ENCOUNTER 2020-03-03 13:22 | Observation (INO) | payer MEDICARE, MEDICAID, SELFPAY ==
[2020-03-03] VITALS (10 sets, daily range): BP systolic 97–167; BP diastolic 41–86; PULSE 80–100; RESP 16–22; TEMP 36.7–38.3; O2SAT 90–95; BMI 44.1
--- NOTE | 2020-03-03 13:27 | XR_ITS ---
PROCEDURE: XR CHEST PORTABLE CLINICAL HISTORY: septic COMPARISON: CR CXR CHEST(2 VIEWS-NOT PORTABLE) from 03/20/2016 CR CXR CHEST(2 VIEWS-NOT PORTABLE) from 03/23/2017 CR CXR2V XR chest 2V from 07/27/[address] chest wo con from 09/30/2017 FINDINGS: Unremarkable cardiovascular structures. Lung bases are under penetrated. No definite lobar consolidation or collapse. Cannot exclude patchy infiltrate in the right lung base. IMPRESSION: Possible right basilar infiltrate Dictated by: Javi Goins MD 03/03/2020 15:00 Javi Goins MD in [place] 03/03/2020 15:00
--- NOTE | 2020-03-03 13:28 | HMH.EDGENADL ---
ED Disposition Clinical Impression: Sepsis Qualifiers: Sepsis type: sepsis due to unspecified organism Sepsis acute organ dysfunction status: with acute organ dysfunction Severe sepsis acute organ dysfunction type: acute renal failure Acute renal failure type: unspecified Severe sepsis shock status: without septic shock Qualified Code(s): A41.9 - Sepsis, unspecified organism; R65.20 - Severe sepsis without septic shock; N17.9 - Acute kidney failure, unspecified Pneumonia Qualifiers: Pneumonia type: due to unspecified organism Laterality: right Lung location: lower lobe of lung Qualified Code(s): J18.9 - Pneumonia, unspecified organism Disposition: Admitted As Inpatient Condition on Discharge: Fair - Critical Care Critical Care Time: No Attestation: On , the high probability of a clinically significant, sudden or life threatening deterioration of the following system(s) required my full and direct attention, intervention and personal management. The time I documented below is in addition to time spent performing reported procedures but includes the following listed in this critical care notation. Medical Decision Making - Medical Records Medical records reviewed: Yes: I reviewed the patient's medical records. - [place] Inquiry Pt receiving controlled substance: No Vital Signs: 03/03/20 13:22 Temperature 101 F H Temperature Source Oral Pulse Rate [Left Radial] 89 Respiratory Rate 19 Blood Pressure [Right Arm] 112/61 Blood Pressure Mean [Right Arm] 78 Blood Pressure Source [Right Arm] Automatic Cuff Blood Pressure Position [Right Arm] Sitting 02 Sat by Pulse Oximetry 94 L Oxygen Delivery Method Room Air - Lab Data Lab results reviewed: Yes: I reviewed the patient's lab results. Lab Results 03/03/20 13:30: WBC 23.3 H*, RBC 3.82 L, Hgb 12.8 L, Hct 36.7 L, MCV 96.0 H, MCH 33.6 H, MCHC 35.0, RDW 14.0, Plt Count 243, MPV 8.2, Neut % (Auto) 91.0 H, Lymph % (Auto) 3.3 L, [place] % (Auto) 3.8, Eos % (Auto) 1.7, Baso % (Auto) 0.2, Neut # (Auto) 21.2 H, Lymph # (Auto) 0.8, [place] # (Auto) 0.9, Eos # (Auto) 0.4, Baso # (Auto) 0.1, Total Counted 100, Neutrophils % (Manual) 91 H, Lymphocytes % (Manual) 6 L, Monocytes % (Manual) 2, Eosinophils % (Manual) 1, Platelet Estimate Normal, RBC Morphology Normal 03/03/20 13:30: Lactate 3.2 H 03/03/20 13:30: Sodium 135 L, Potassium 4.4, Chloride 103, Carbon Dioxide 20 L, Anion Gap 16.4 H, BUN 35 H, Creatinine 2.10 H, Estimated Creat Clear 34, Estimated GFR 32 L, Est GFR ( Amer) 39 L, Glucose 197 H, Calcium 9.9, Total Bilirubin 0.8, AST 36, ALT 24, Alkaline Phosphatase 46, Total Protein 7.3, Albumin 4.3, Globulin 3.0, Albumin/Globulin Ratio 1.4, Lipase 66 03/03/20 13:30: SARS-CoV-2 IgG Ab (Rapid) Negative, SARS-CoV-2 IgM Ab (Rapid) Negative 03/03/20 14:50: Urine Color Yellow, Urine Appearance Clear, Urine pH 5.5, Ur Specific [place] >= 1.030, Urine Protein Negative, Urine Glucose (UA) Negative, Urine Ketones Negative, Urine Blood Negative, Urine Nitrate Negative, Urine Bilirubin Negative, Urine Urobilinogen 1.0, Ur Leukocyte Esterase Negative, Urine RBC None, Urine WBC Occasional, Ur Squamous Epith Cells 3-5, Urine Bacteria 1+, Hyaline Casts 3-5, Urine Sperm 2+ Result diagrams: 03/03/20 13:30 03/03/20 13:30 Orders (Tests/Meds): ED MEDICATIONS Generic Name Dose Route Start Last Admin Trade Name Freq PRN Reason Stop Dose Admin Acetaminophen 650 mg 03/03/20 15:19 Acetaminophen 325mg Tab PO 04/02/20 15:18 Q4HP PRN As Needed for Fever or Pain Ceftriaxone Sodium 2 gm/ 100 mls @ 200 mls/hr 03/03/20 13:30 03/03/20 13:57 Sodium Chloride IV 03/17/20 13:29 200 mls/hr Q24H MARIN Administration Protocol Sodium Chloride 2,050 mls @ 1,025 mls/hr 03/03/20 13:32 03/03/20 13:58 Sod Chlor 0.9% 1000ml Bag 30 ml/kg infuse over 2 hr (2050 ml) 09/05/20 15:31 1,025 mls/hr IV Administration .Q2H ONE Protocol Sodium Chloride 1,000 mls @ 125 mls/hr 03/03
[2020-03-03 13:43] LABS: Basophils # 0.1 K/mm3 (0-0.2); Basophils % 0.2 % (0.1-2.0); Eosinophils # 0.4 K/mm3 (0.0-0.4); Eosinophils % 1.7 % (0.1-12.0); Hematocrit 36.7 % (42.0-52.0); Hemoglobin 12.8 g/dL (14.1-18.0); Lymphocytes # 0.8 K/mm3 (0.7-4.5); Lymphocytes % 3.3 % (10-50); Mean Corpuscular Hemoglobin 33.6 pg (27.0-31.2); Mean Platelet Volume 8.2 fl (7.4-10.4); Monocytes # 0.9 K/mm3 (0.1-1.0); Monocytes % 3.8 % (1.7-9.3); Neutrophils # 21.2 K/mm3 (1.8-7.8); Platelet Count 243 K/mm3 (142-424); Red Blood Count 3.82 M/mm3 (4.60-6.20); White Blood Count 23.3 K/mm3 (4.8-10.8)
[2020-03-03 13:48] LABS: MANUAL DIFFERENTIAL MANUAL DIFFERENTIAL (MANUAL DIFF)
[2020-03-03 13:54] LABS: Alanine Aminotransferase 24 U/L (12-78); Albumin Level 4.3 g/dl (3.5-5.0); Albumin/Globulin Ratio 1.4 (1.1-1.8); Alkaline Phosphatase 46 U/L (38-126); Anion Gap 16.4 mEq/L (5-15); Aspartate Amino Transferase 36 U/L (17-59); Bilirubin,Total 0.8 mg/dl (0.2-1.3); Blood Urea Nitrogen 35 mg/dl (9-20); Calcium 9.9 mg/dl (8.4-10.2); Carbon Dioxide 20 mmol/L (22.0-30.0); Chloride 103 mmol/L (98-107); Creatinine Clearance Estimated 34 mL/min (50-200); Estimated Glomerular Filt Rate 32 ml/min (>60); GFR (African American) 39 ML/MIN (>60); Glucose 197 mg/dl (74-100); Lactic Acid 3.2 mmol/L (0.7-2.1); Lipase 66 U/L (23-300); Potassium 4.4 mmoL/L (3.5-5.1); Sodium 135 mmol/L (136-145); Total Protein,Serum 7.3 g/dl (6.3-8.2)
[2020-03-03 13:55] LABS: Eosinophils % 1 % (0-3); Lymphocytes % 6 % (10-50); Monocytes % 2 % (2-9); Neutrophils % 91 % (42-76); Platelet Estimate Normal; RBC Morphology Normal; Total Cells Counted 100
[2020-03-03 14:24] LABS: Coronavirus 19 IgG Antibody Negative (Negative); Coronavirus 19 IgM Antibody Negative (Negative)
[2020-03-03 14:54] LABS: Microscopic, Urine URINE MICROSCOPIC (MICROSCOPIC)
[2020-03-03 14:56] LABS: Appearance,Urine CLEAR (Clear); Bilirubin,Urine Negative (Negative); Blood, Urine Negative (Negative); Color,Urine YELLOW (Yellow); Glucose,Urine (UA) Negative (Negative); Ketones,Urine Negative (Negative); Leukocyte Esterase,Urine Negative (Negative); Nitrate,Urine Negative (Negative); PH,Urine 5.5 (5.0-8.5); Protein,Urine Negative (Negative); Specific Gravity, Urine >= 1.030 (1.005-1.030)
[2020-03-03 15:03] LABS: WBC,Urine Occasional #/hpf (0-3)
[2020-03-03 15:04] LABS: Bacteria,Urine 1+ /lpf; Sperm,Urine 2+ /lpf
--- NOTE | 2020-03-03 16:53 | PC.NURSE ---
Pt arrived to the floor at this time
[2020-03-03 17:40] LABS: Reflex Lactic Add Lactic Reflex
[2020-03-03 18:10] LABS: Lactic Acid Follow Up (RFLX 1) 1.2 mmol/L (0.7-2.1)
[2020-03-03 22:41] LABS: POC Glucose,Bedside 134 (70-110)
[2020-03-04] VITALS: BP 136/45; PULSE 102; RESP 19; TEMP 38.9; O2SAT 92
--- NOTE | 2020-03-04 01:22 | PC.NURSE ---
Approximately 0100 pt rang out to wardrobe manager stating he had vomited. Pt indeed was covered in vomit, including his CPAP. Pt was assessed and has no complaints of nausea. He states he feels fine and it was just that salad . Pt presents w/ temp of 102.0 oral. Pt given tylenol and zofran per MAR. Pt also bathed and linens changed at this time. CPAP masked cleaned as well.
[2020-03-04 01:30] VITALS: TEMP 36.9
[2020-03-04 04:00] VITALS: BP 117/52; PULSE 56; RESP 18; TEMP 37.9; O2SAT 90
[2020-03-04 04:44] LABS: Basophils % 0.1 % (0.1-2.0); Eosinophils % 0.3 % (0.1-12.0); Hematocrit 32.8 % (42.0-52.0); Lymphocytes # 0.8 K/mm3 (0.7-4.5); Lymphocytes % 6.1 % (10-50); Mean Corpuscular HGB Conc 33.2 g/dL (31.8-35.4); Mean Corpuscular Hemoglobin 32.6 pg (27.0-31.2); Mean Corpuscular Volume 98.1 fl (80-94); Monocytes # 0.6 K/mm3 (0.1-1.0); Monocytes % 4.1 % (1.7-9.3); Neutrophils # 12.2 K/mm3 (1.8-7.8); Neutrophils % 89.4 % (37.0-80.0); Platelet Count 163 K/mm3 (142-424); Red Blood Count 3.35 M/mm3 (4.60-6.20); White Blood Count 13.6 K/mm3 (4.8-10.8)
[2020-03-04 04:51] LABS: Hemoglobin 10.9 g/dL (14.1-18.0)
[2020-03-04 04:52] LABS: MANUAL DIFFERENTIAL MANUAL DIFFERENTIAL (MANUAL DIFF)
[2020-03-04 05:05] LABS: Blood Urea Nitrogen 25 mg/dl (9-20); Calcium 9.1 mg/dl (8.4-10.2); Carbon Dioxide 23 mmol/L (22.0-30.0); Chloride 106 mmol/L (98-107); Creatinine Clearance Estimated 48 mL/min (50-200); Estimated Glomerular Filt Rate 47 ml/min (>60); GFR (African American) 57 ML/MIN (>60); Sodium 134 mmol/L (136-145)
[2020-03-04 05:07] LABS: Glucose 135 mg/dl (74-100)
[2020-03-04 05:26] VITALS: BMI 44.5
[2020-03-04 05:33] LABS: Lymphocytes % 3 % (10-50); Macrocytosis 1+; Neutrophils % 89 % (42-76); Platelet Estimate Normal; Total Cells Counted 100
--- NOTE | 2020-03-04 06:48 | PC.NURSE ---
Pt rested in short intervals since episode of vomiting. Zofran effective for symptoms. No new complaints reported to staff. Stein patent w/ clear, du urine draining. Pt has been febrile multiple times and medicated w/ tylenol per AUG.
[2020-03-04 07:00] VITALS: TEMP 36.8
--- NOTE | 2020-03-04 07:43 | HMH.HP ---
*Admission Date: 03/03/20 *Chief complaint: Weakness with falls *History of present illness: 65-year-old male with COPD, obstructive sleep apnea, diabetes mellitus that is controlled, coronary artery disease presented to the emergency department after 2 falls at home with progressing generalized weakness. Patient reports that symptoms had been slowly developing over the prior 3 to 4 days. On Thursday morning he fell twice when trying to ambulate and decision was made to come to the emergency department. Patient was febrile in the emergency department but was unaware of any fevers at home. Work-up revealed a an elevated white blood cell count and chest x-ray concerning for a developing right lower lobe infiltrate. Patient met sepsis criteria and decision was made to admit the patient for IV fluids, antibiotics, observation. Overnight patient continued to have fevers of varying degree. Patient admits to poor quality sleep here in the hospital. He had a single episode of vomiting which he blames on what he ate for supper. Review of systems is only positive for some mild shortness of breath above baseline the patient admits to over the last 3 to 4 days. He denies chills at home. He denies cough with sputum production. He denies dysuria, urinary frequency or urgency, diarrhea, vomiting at home. Patient has a medical history of MRSA skin abscesses but denies any new lesions appearing recently [facility] History I have reviewed the patient's past medical history: Yes Medical History: Reports:: Congestive Heart Failure, Chronic Obstructive Pulmonary Disease (COPD), Cerebrovascular Accident, Diabetes Mellitus Type 2, Gastroesophageal Reflux Disease(GERD), Hyperlipidemia, Hypertension, Migraine, Palpitations, Renal Disease Denies:: Aneurysm, Anxiety, Asthma, Atrial Fibrillation, Cancer, Coronary Artery Disease, Deep Vein Thrombosis, Diabetes Mellitus Type 1, Internal Pacemaker, Kidney Stones, MRSA, Myocardial Infarction, Pulmonary Embolism, Seizures, Supraventricular Tachycardia, Transient Ischemic Attacks (TIA), Valvular Heart Disease *Have you ever received a pneumonia vaccine?: Yes *Have you received a flu vaccine this season?: Yes Other Medical History: Reports: Anemia, Arthritis, Cataracts, Other. Denies: Glaucoma, Hypothyroidism, Thyroid Disease Laterality Cases: Left: Other, Bilateral: Arthroscopy Hip, Total Hip Replacement Other Surgeries: Yes: Cardiac Catheterization, Cholecystectomy, Colonoscopy, Other. No: Pacemaker Amputation: No Fractures: No - *Social History Last grade of school completed: 11th or 12th Smoking Status: Former smoker Tobacco Type: cigarettes #Yrs smoked (if former smoker): 1 Alcohol Intake: never Alcohol Intake Frequency:: other Substance Use Type: denies use *Occupational Status:: disabled Housing: apartment Household Members: spouse *Travel in the last 8 weeks: None - Psychiatric History Pschychiatric History:: Denies:: Anxiety Family Hx:: Diabetes, Heart Attack, Hyperlipidemia, Hypertension Review of Systems - Review of Systems Review of systems:: pertinent systems reviewed and negative unless documented below Meds Home Medications Medication Instructions Recorded Confirmed Type hydrocodone 10 mg-acetaminophen 1 tab PO Q6H PRN 07/06/17 03/03/20 History 325 mg tablet metoclopramide HCl 10 mg tablet 10 mg PO AC 07/06/17 03/03/20 History omeprazole 40 mg capsule,delayed 40 mg PO DAILY 07/06/17 03/03/20 History release temazepam 30 mg capsule 30 mg PO QHS 07/06/17 03/03/20 History Glycopyrrolate/Formoterol Fum 2 puff INHALATION BID 07/27/17 03/03/20 History [Bevespi Aerosphere Inhaler] allopurinoL [Allopurinol 100mg 100 mg PO DAILY 07/27/17 03/03/20 History tablet] Fenofibrate,Micronized [Tricor 134 mg PO DAILY 07/28/17 03/03/20 History 134mg] citalopram 40 mg tablet 40 mg PO DAILY #30 tab 10/22/18 03/03/20 History gabapentin 600 mg tablet 1,200 mg PO TID 30 Days #180 tab 03/24/19
[2020-03-04 08:00] VITALS: BP 145/75; PULSE 85; RESP 18; TEMP 37.6; O2SAT 100
--- NOTE | 2020-03-04 09:52 | HMH.PHACONS ---
- Pharmacy Consult Date: 03/04/20 Time: 09:52 Referring provider: DR. DAMON Reason for Consult:: VANCOMYCIN DOSING Allergies and ADEs:: Allergies Allergy/AdvReac Type Severity Reaction Status Date / Time No Known Allergies Allergy Verified 02/15/20 13:37 Home Medications:: Home Medications Medication Instructions Recorded Confirmed Type hydrocodone 10 mg-acetaminophen 1 tab PO Q6H PRN 07/06/17 03/03/20 History 325 mg tablet metoclopramide HCl 10 mg tablet 10 mg PO AC 07/06/17 03/03/20 History omeprazole 40 mg capsule,delayed 40 mg PO DAILY 07/06/17 03/03/20 History release temazepam 30 mg capsule 30 mg PO QHS 07/06/17 03/03/20 History Glycopyrrolate/Formoterol Fum 2 puff INHALATION BID 07/27/17 03/03/20 History [Bevespi Aerosphere Inhaler] allopurinoL [Allopurinol 100mg 100 mg PO DAILY 07/27/17 03/03/20 History tablet] Fenofibrate,Micronized [Tricor 134 mg PO DAILY 07/28/17 03/03/20 History 134mg] citalopram 40 mg tablet 40 mg PO DAILY #30 tab 10/22/18 03/03/20 History gabapentin 600 mg tablet 1,200 mg PO TID 30 Days #180 tab 03/24/19 03/03/20 History insulin degludec 200 unit/mL (3 112 unit SQ QHS #18 ml 03/24/19 03/03/20 History mL) subcutaneous pen bisoprolol fumarate 10 mg tablet 10 mg PO DAILY #90 tab 08/08/19 03/03/20 Rx tamsulosin 0.4 mg capsule 0.4 mg PO DAILY cap 08/08/19 03/03/20 History Amlodipine Besylate [Amlodipine 10 mg PO DAILY 03/03/20 03/03/20 History 10mg Tab] Furosemide [Furosemide 40MG tAB] 40 mg PO DAILY 03/03/20 03/03/20 History Isosorbide Mononitrate [Imdur 30mg 30 mg PO DAILY 03/03/20 03/03/20 History ER tablet] Losartan Potassium [Cozaar 100mg 100 mg PO DAILY 03/03/20 03/03/20 History Tablets] Ranolazine [Ranolazine ER] 500 mg PO BID 03/03/20 03/03/20 History Spironolactone 50 mg PO DAILY 03/03/20 03/03/20 History Azithromycin [Z-Fazal 250mg Tab] 250 mg PO DIRECTED #6 tab 03/04/20 Rx cefUROXime axetiL [Ceftin 500mg 500 mg PO BID #14 tab 03/04/20 Rx Tab (GEQ)] Height: 1.73 m Weight: 133.2 kg Laboratory Results:: Laboratory Results - last 24 hr 03/03/20 13:30: WBC 23.3 H*, RBC 3.82 L, Hgb 12.8 L, Hct 36.7 L, MCV 96.0 H, MCH 33.6 H, MCHC 35.0, RDW 14.0, Plt Count 243, MPV 8.2, Neut % (Auto) 91.0 H, Lymph % (Auto) 3.3 L, Mckean % (Auto) 3.8, Eos % (Auto) 1.7, Baso % (Auto) 0.2, Neut # (Auto) 21.2 H, Lymph # (Auto) 0.8, Mckean # (Auto) 0.9, Eos # (Auto) 0.4, Baso # (Auto) 0.1, Total Counted 100, Neutrophils % (Manual) 91 H, Lymphocytes % (Manual) 6 L, Monocytes % (Manual) 2, Eosinophils % (Manual) 1, Platelet Estimate Normal, RBC Morphology Normal 03/03/20 13:30: Lactate 3.2 H 03/03/20 13:30: Sodium 135 L, Potassium 4.4, Chloride 103, Carbon Dioxide 20 L, Anion Gap 16.4 H, BUN 35 H, Creatinine 2.10 H, Estimated Creat Clear 34, Estimated GFR 32 L, Est GFR ( Amer) 39 L, Glucose 197 H, Calcium 9.9, Total Bilirubin 0.8, AST 36, ALT 24, Alkaline Phosphatase 46, Total Protein 7.3, Albumin 4.3, Globulin 3.0, Albumin/Globulin Ratio 1.4, Lipase 66 03/03/20 13:30: SARS-CoV-2 IgG Ab (Rapid) Negative, SARS-CoV-2 IgM Ab (Rapid) Negative 03/03/20 14:50: Urine Color Yellow, Urine Appearance Clear, Urine pH 5.5, Ur Specific [place] >= 1.030, Urine Protein Negative, Urine Glucose (UA) Negative, Urine Ketones Negative, Urine Blood Negative, Urine Nitrate Negative, Urine Bilirubin Negative, Urine Urobilinogen 1.0, Ur Leukocyte Esterase Negative, Urine RBC None, Urine WBC Occasional, Ur Squamous Epith Cells 3-5, Urine Bacteria 1+, Hyaline Casts 3-5, Urine Sperm 2+ 03/03/20 17:45: Lactate 1.2 03/03/20 22:01: POC Glucose 134 H 03/04/20 04:30: WBC 13.6 H D, RBC 3.35 L, Hgb 10.9 L D, Hct 32.8 L, MCV 98.1 H, MCH 32.6 H, MCHC 33.2, RDW 14.0, Plt Count 163 D, MPV 8.0, Neut % (Auto) 89.4 H, Lymph % (Auto) 6.1 L, Mckean % (Auto) 4.1, Eos % (Auto) 0.3, Baso % (Auto) 0.1, Neut # (Auto) 12.2 H, Lymph # (Auto) 0.8, Mckean # (Auto) 0.6, Eos # (Auto) 0.0, Baso # (Auto) 0.0, Total Counted 10
--- NOTE | 2020-03-04 09:57 | P.CONPHA_ITS ---
[facility] Pharmacy VTE Monitoring - Patient Demographics Admission date: 03/03/20 Report Date: 03/04/20 Time: 09:58 Allergies/Adverse Reactions: Patient Allergies No Known Allergies Allergy (Verified 02/15/20 13:37) Height: 1.73 m Weight: 133.2 kg Patient Problems: Current Active Problems Sepsis (Acute) Pneumonia (Acute) Right lower lobe pneumonia (Acute) - VTE Risk Labs: VTE Related Lab Results Hgb 10.9 g/dL (14.1-18.0) L D 03/04/20 04:30 Hct 32.8 % (42.0-52.0) L 03/04/20 04:30 Plt Count 163 K/mm3 (142-424) D 03/04/20 04:30 BUN 25 mg/dl (9-20) H D 03/04/20 04:30 Creatinine 1.50 mg/dl (0.66-1.25) H D 03/04/20 04:30 Estimated Creat Clear 48 mL/min (50-200) 03/04/20 04:30 VTE Score: 2 - Prophylaxis VTE Prophylaxis Ordered?: Yes Types of VTE Prophylaxis: TEDS Knee High Location of Applied Device: Bilateral Lower Extremeties
--- NOTE | 2020-03-04 10:39 | PC.NURSE ---
pt induced to produce sputum with success. small amount for dark yellow collected in cup and sent to lab.
[2020-03-04 15:36] VITALS: BP 126/59; PULSE 81; RESP 18; TEMP 36.9; O2SAT 92
--- NOTE | 2020-03-04 16:49 | PC.NURSE ---
PT HAS BEEN UP IN THE CHAIR SINCE THIS MORNING. PT HAD VOIDED SINCE CATHETER WAS DC'D. AMBULATED TO THE BATHROOM AND ASSISTED HIM WITH A SHOWER. PCP STATED IT WOULD BE OKAY FOR PT TO DISCHARGE HOME.
[2020-03-04 23:55] LABS: POC Glucose,Bedside 116 (70-110)
--- NOTE | 2020-03-06 13:38 | HMH.DCSUM ---
General - General Admission date:: 03/03/20 Discharge date: 03/04/20 HPI HPI: 65-year-old male with COPD, obstructive sleep apnea, diabetes mellitus that is controlled, coronary artery disease presented to the emergency department after 2 falls at home with progressing generalized weakness. Patient reports that symptoms had been slowly developing over the prior 3 to 4 days. On Thursday morning he fell twice when trying to ambulate and decision was made to come to the emergency department. Patient was febrile in the emergency department but was unaware of any fevers at home. Work-up revealed a an elevated white blood cell count and chest x-ray concerning for a developing right lower lobe infiltrate. Patient met sepsis criteria and decision was made to admit the patient for IV fluids, antibiotics, observation. Overnight patient continued to have fevers of varying degree. Patient admits to poor quality sleep here in the hospital. He had a single episode of vomiting which he blames on what he ate for supper. Review of systems is only positive for some mild shortness of breath above baseline the patient admits to over the last 3 to 4 days. He denies chills at home. He denies cough with sputum production. He denies dysuria, urinary frequency or urgency, diarrhea, vomiting at home. Patient has a medical history of MRSA skin abscesses but denies any new lesions appearing recently Hospital Course Hospital Course: Patient was admitted for pneumonia. He had no oxygen requirement and by the day after admission was ambulating indepdendently. He complained of pain from the hospital bed and requested discharge. He was discharged to home and will follow up in 48 hours. Objective Vital signs: Temp Pulse Resp BP Pulse Ox 98.4 F 81 18 126/59 L 92 L 03/04/20 15:36 03/04/20 15:36 03/04/20 15:36 03/04/20 15:36 03/04/20 15:36 Results Labs on day of discharge: Preliminary micro results at discharge 03/03/20 13:30 Blood Culture - Preliminary Blood NO GROWTH AFTER 48 HOURS 03/03/20 13:30 Blood Culture - Preliminary Blood NO GROWTH AFTER 48 HOURS DS: Diagnosis - Discharge Diagnosis (1) Right lower lobe pneumonia Status: Acute (2) Type 2 diabetes mellitus with diabetic neuropathy, with long-term current use of insulin Status: Acute (3) Chronic kidney disease Status: Chronic (4) Hypertensive heart disease Status: Chronic (5) Morbid obesity Status: Chronic (6) Obstructive sleep apnea syndrome Status: Chronic (7) Pulmonary hypertension Status: Chronic Discharge Plan - Patient Discharge Instructions ACTIVITY: Continue current activity DIET: continue same diet Patient Instructions: How to Care for Your Stein Catheter -- Male, DI for Pneumonia -- Adult, DI for Sepsis -- Adult - Follow up Plan Follow up with: Kevin Leon MD [Staff Physician] - 03/06/20 1:30 pm Disposition: Home, Self-Prison Medications: Home Medications Medication Instructions Recorded Confirmed Type hydrocodone 10 mg-acetaminophen 1 tab PO Q6H PRN 07/06/17 03/03/20 History 325 mg tablet metoclopramide HCl 10 mg tablet 10 mg PO AC 07/06/17 03/03/20 History omeprazole 40 mg capsule,delayed 40 mg PO DAILY 07/06/17 03/03/20 History release temazepam 30 mg capsule 30 mg PO HS 07/06/17 03/04/20 History Glycopyrrolate/Formoterol Fum 2 puff INHALATION BID 07/27/17 03/03/20 History [Bevespi Aerosphere Inhaler] allopurinoL [Allopurinol 100mg 100 mg PO DAILY 07/27/17 03/03/20 History tablet] Fenofibrate,Micronized [Tricor 134 mg PO DAILY 07/28/17 03/03/20 History 134mg] citalopram 40 mg tablet 40 mg PO DAILY #30 tab 10/22/18 03/03/20 History gabapentin 600 mg tablet 1,200 mg PO TID 30 Days #180 tab 03/24/19 03/03/20 History insulin degludec 200 unit/mL (3 112 unit SQ HS #18 ml 03/24/19 03/04/20 History mL) subcutaneous pen bisoprolol fumarate 10 mg tablet 10 m
== END 2020-03-04 16:51 | disposition home or self-care (01) ==
LOC: ER 15:24 → 2ND 03-04 07:42
PROVIDERS: Admitting Provider Family Medicine; Emergency Provider Emergency Medicine; Visit Provider Family Medicine
DX: J18.9 Pneumonia, unspecified organism (principal); J44.9 Chronic obstructive pulmonary disease, unspecified; I25.10 Atherosclerotic heart disease of native coronary artery without angina pectoris; G47.33 Obstructive sleep apnea (adult) (pediatric); E11.9 Type 2 diabetes mellitus without complications; E03.9 Hypothyroidism, unspecified; E66.01 Morbid (severe) obesity due to excess calories; Z68.41 Body mass index [BMI] 40.0-44.9, adult; I13.0 Hypertensive heart and chronic kidney disease with heart failure and stage 1 through stage 4 chronic kidney disease, or unspecified chronic kidney disease; I50.9 Heart failure, unspecified; N18.9 Chronic kidney disease, unspecified; N39.0 Urinary tract infection, site not specified
CPT/HCPCS: 36415; 71045; 80048; 80053; 81001; 82962; 83605; 83690; 85007; 85025; 86328; 87040; 87070; 87086; 87205; 87275; 87276; 96365; 96366; 96367; 99282; G0378; J0456; J2405; J3370

== ENCOUNTER → 2020-04-12 10:49 | Outpatient (CLI) | payer MEDICARE, MEDICAID, SELFPAY | PROVIDERS: Visit Provider Family Medicine | DX: L03.116 Cellulitis of left lower limb (principal) | CPT/HCPCS: 87070; 87077; 87186; 87205 ==

== ENCOUNTER 2020-05-10 14:00 | Outpatient (RCR) | payer MEDICARE, MEDICAID, SELFPAY ==
--- NOTE | 2020-03-14 10:41 | HMH.PTOPWND ---
Rehab Outpt Wound Evaluation Rehab OP Wound Evaluation Start: 03/14/20 10:23 Freq: Status: Active Protocol: Document 03/14/20 10:23 LORI (Rec: 03/14/20 10:41 PWMING [id number]) Electronically Signed By Jose Freeman, ARIANNE 03/14/20 10:23 Subjective/History History History This is the initial physical therapy wound clinic evaluation for Hakeem Cat. Pt is a 65 y/o male referred to PT for wound care on LLE. Pt reports he developed redness, blisters, swelling and pain on 03/04/20. Pt was in [facility] for pneumonia prior to this on 03/02-03/03. Subjective Subjective Pt reports decreased pain today Wound Eval Wound Left Lower Leg Wound Type Blister Is This a Chronic Wound No Wound Length (cm) 15 Wound Width (cm) 14 Wound Bed Appearance Beefy Red,Slough,Blisters Percentage Granulated (%) 100 Wound Margins Description Indistinct Edema Type Pitting Edema Degree 2+ Query Text:1+ Trace, Barely Detectable, Rebound 15-30 seconds 2+ Moderate, Slight Indentation, Rebound 10-20 seconds 3+ Deep, Deeper Indentation, Rebound > 30 seconds 4+ Very Deep, Rebound > 60 seconds Edema Appearance Weeping,Shiny,Open Sores Surrounding Tissue Temperature Warm Drainage Description Serous Drainage Amount Large Drainage Odor No Odor Dressing Status Soiled Wound Topical Solution/Irrigant Saline Irrigant Primary Dressing Unna Boot Wound Secondary Dressing Type Unna Boot Dressing Change Patient Tolerance Tolerated Well Wound Problems/Impairments Impairments Problems/Impairmments Palpation Tenderness,Impaired Walking,Wound Care Needs, Subjective C/O Pain,Impaired Self Care/Self Management Prognosis Rehab Potential Fair Clinical Impression Consistent with Diagnosis Yes Short Term Goals Number of Weeks 2 Decreased Palpation Tenderness Yes Decrease Wound Area Yes: 50% Decrease Drainage Yes: min Textile Engraver Goals Number of Weeks 8 Decreased Palpation Tenderness Yes: none Increase Ability to Walk Yes Decrease Edema Yes Decrease Wound Area Yes: 100% Decrease Subjective C
--- NOTE | 2020-04-12 09:13 | HMH.RHREAS ---
Rehab Reassessment Rehab OP Re-assessment Start: 04/12/20 09:08 Freq: Status: Active Protocol: Document 04/12/20 09:10 TARYN (Rec: 04/12/20 09:13 TARYN [id number]) Electronically Signed By Chuckie Richey, PT 04/12/20 09:10 Rehab Re-assessment Subjective Subjective Pt reports he continues to have soreness in his L lower leg. Objective Objective Notes L anterior kern wounds (in cm) SUP: L=3.0, W=3.0 INF: L=2.9, W=0.6 Assessment Progress Assessment Progressing as Expected Assessment Notes Pt with healthy wound bed appearance, but purulent drainage noted. Continues to have erythema and tenderness to palpation. Patient goals met ST,2,3 Goals Not Met LT,2,3,4,5 Revised Goals none Plan Plan Continue per initial POC. Frequency of Therapy 2 x/wk Duration of therapy 8 wks Time and Billing Re-Eval Time 15 Re-Eval Billing Units 1 PHYSICIAN CERTIFICATION: I certify the specified therapy services for Hakeem Cat are required, authorized, and reviewed every 30 days.
== END 2020-05-10 14:05 | disposition home or self-care (01) ==
LOC: PT 14:00
PROVIDERS: Visit Provider Family Medicine
DX: L03.116 Cellulitis of left lower limb (principal)
CPT/HCPCS: 29580; 97161; 97164; 97597; 97598; 97760

== ENCOUNTER → 2020-05-30 15:56 | Outpatient (CLI) | payer MEDICARE, MEDICAID, SELFPAY ==
[2020-05-30 17:18] LABS: Albumin Level 4.1 g/dl (3.5-5.0); Anion Gap 11.4 mEq/L (5-15); Blood Urea Nitrogen 32 mg/dl (9-20); Calcium 9.3 mg/dl (8.4-10.2); Carbon Dioxide 25 mmol/L (22.0-30.0); Chloride 96 mmol/L (98-107); Estimated Glomerular Filt Rate 38 ml/min (>60); GFR (African American) 46 ML/MIN (>60); Glucose 142 mg/dl (74-100); Phosphorous 4.1 mg/dl (2.5-4.5); Potassium 4.4 mmoL/L (3.5-5.1); Sodium 128 mmol/L (136-145)
== END ==
PROVIDERS: Visit Provider Internal Medicine Nephrology
DX: N18.30 Chronic kidney disease, stage 3 unspecified (principal)
CPT/HCPCS: 36415; 80069

== ENCOUNTER → 2020-06-04 10:15 | Outpatient (POV) | payer MEDICARE, MEDICAID, SELFPAY | PROVIDERS: Visit Provider Internal Medicine Nephrology | DX: Z00.00 Encounter for general adult medical examination without abnormal findings (principal) ==

== ENCOUNTER → 2020-06-26 16:44 | Outpatient (CLI) | payer MEDICARE, MEDICAID, SELFPAY | PROVIDERS: PCP Nurse Practitioner Family; Visit Provider Nurse Practitioner Family | DX: E78.2 Mixed hyperlipidemia (principal); G47.33 Obstructive sleep apnea (adult) (pediatric); I11.9 Hypertensive heart disease without heart failure; I27.20 Pulmonary hypertension, unspecified; I49.9 Cardiac arrhythmia, unspecified; I50.32 Chronic diastolic (congestive) heart failure; R00.2 Palpitations; R06.02 Shortness of breath; R53.83 Other fatigue; R94.31 Abnormal electrocardiogram [ECG] [EKG] | CPT/HCPCS: 93270 ==

== ENCOUNTER → 2020-07-13 15:07 | Outpatient (CLI) | payer MEDICARE, MEDICAID, SELFPAY ==
[2020-07-13 16:24] LABS: Anion Gap 12.2 mEq/L (5-15); Blood Urea Nitrogen 22 mg/dl (9-20); Calcium 9.4 mg/dl (8.4-10.2); Carbon Dioxide 25 mmol/L (22.0-30.0); Chloride 104 mmol/L (98-107); Estimated Glomerular Filt Rate 47 ml/min (>60); GFR (African American) 57 ML/MIN (>60); Glucose 125 mg/dl (74-100); Potassium 4.2 mmoL/L (3.5-5.1); Sodium 137 mmol/L (136-145)
[2020-07-13 16:34] LABS: NT Pro Brain Natriuretic Pep. 162 pg/mL (0-125)
== END ==
PROVIDERS: Visit Provider Nurse Practitioner Family
DX: E78.2 Mixed hyperlipidemia (principal); G47.33 Obstructive sleep apnea (adult) (pediatric); I27.20 Pulmonary hypertension, unspecified; I50.32 Chronic diastolic (congestive) heart failure; R06.02 Shortness of breath; R53.83 Other fatigue
CPT/HCPCS: 36415; 80048; 83880

== ENCOUNTER → 2020-07-26 10:52 | Outpatient (POV) | payer MEDICARE, MEDICAID, SELFPAY ==
[2020-07-26 11:14] VITALS: BP 133/78; PULSE 74; RESP 18; TEMP 36.8; O2SAT 99; BMI 43.9
--- NOTE | 2020-07-26 12:39 | HMH.PMCON ---
Assessment and Plan (1) Sacroiliitis Status: Chronic Category: Medical Code(s): M46.1 - Sacroiliitis, not elsewhere classified (2) Hip pain Status: Chronic Category: Medical Code(s): M25.559 - Pain in unspecified hip - Assessment and plan all Dx Assessment and Plan for all problems:: We believe the patient has multiple pain sources. One of the sources is bilateral SI joints. I do think a bilateral SI joint injection would be beneficial. He may be a candidate for additional SI joint therapies. Patient has failed other conservative therapies including epidural injections. I do believe if we can get his acute SI joint pain under control that we potentially could move forward with a better control of his low back pain as well. I will follow-up with him afterwards reassess his symptoms at that time. He is completed physical therapy, anti-inflammatory medications, other injective therapies. He has been instructed to call the office if he has any issues prior to his next appointment. Dr. Fernandez has reviewed this note and agrees with this plan of care. This note was dictated using voice recognition software and may contain errors or omissions HPI - Data of Consult Requesting Physician: Irina Drake APRN Primary Care Provider: Corine Gaines - Consult Narrative Reason for consult: Hip pain History of present illness: Mr. Cat is a 65 year old male who presents today for consultation regards to bilateral hip pain. Patient had bilateral hip replacements by Dr. Sylvia Boss. Patient was then sent to pain management in [place] with Dr. Ramona guillermo. He received epidural injections along with other injections including hip injections. Patient did not get any relief with injection therapy. Patient states that it was recommended to him to get a pain pump. I discussed with him my concern would be he would not get coverage of his current pain. Patient is extremely tender over his bilateral SI joints. Patient has positive Arnav test Aracely's test distraction test of the bilateral joints. He rates his pain today a 6 out of 10. All activity makes it worse nothing makes it better. Patient has failed over 6 months of conservative treatment including injections, medications, anti-inflammatories. Patient is interested in the solution for his pain. CC: Irina Drake APRN [facility] History I have reviewed the patient's past medical history: Yes Medical History: Reports:: Congestive Heart Failure, Chronic Obstructive Pulmonary Disease (COPD), Cerebrovascular Accident, Diabetes Mellitus Type 2, Gastroesophageal Reflux Disease(GERD), Hyperlipidemia, Hypertension, Migraine, Palpitations, Renal Disease Denies:: Aneurysm, Anxiety, Asthma, Atrial Fibrillation, Cancer, Coronary Artery Disease, Deep Vein Thrombosis, Diabetes Mellitus Type 1, Internal Pacemaker, Kidney Stones, MRSA, Myocardial Infarction, Pulmonary Embolism, Seizures, Supraventricular Tachycardia, Transient Ischemic Attacks (TIA), Valvular Heart Disease *Have you ever received a pneumonia vaccine?: No *Have you received a flu vaccine this season?: No Other Medical History: Reports: Anemia, Arthritis, Cataracts, Other. Denies: Glaucoma, Hypothyroidism, Thyroid Disease Laterality Cases: Left: Other, Bilateral: Arthroscopy Hip, Total Hip Replacement Other Surgeries: Yes: Cardiac Catheterization, Cholecystectomy, Colonoscopy, Other. No: Pacemaker Amputation: No Fractures: No - *Social History Smoking Status: Never smoker Tobacco Type: cigarettes #Yrs smoked (if former smoker): 1 Alcohol Intake: never Alcohol Intake Frequency:: other Substance Use Type: denies use *Occupational Status:: retired Housing: house Household Members: spouse *Travel in the last 8 weeks: None - Psychiatric History Pschychiatric History:: Denies:: Anxiety Family Hx:: Unable to obtain Review of Systems - Review of Systems ROS General: no recent weight change, no fever, no sleep disturbanc
== END ==
PROVIDERS: PCP Nurse Practitioner Family; Visit Provider Clinical Nurse Specialist Family Health
DX: M46.1 Sacroiliitis, not elsewhere classified (principal); M25.551 Pain in right hip; M25.552 Pain in left hip
CPT/HCPCS: 99202; G0463

== ENCOUNTER → 2020-08-21 11:16 | Outpatient (CLI) | payer MEDICARE, MEDICAID, SELFPAY ==
--- NOTE | 2020-08-21 11:17 | CA_ITS ---
APPROVED REPORT EXAM: Comprehensive 2D, Doppler, and color-flow Echocardiogram Supervisor Core Drilling: Sybil Salas RVT Ht: 5 ft 8 in Wt: 289lbs BSA: 2.39 BP: 142/72 mmHg Indications: SOA,PALPS,COPD,CHF,HTN,HLD,OBESITY TDS-PT BODY HABITUS 2D Dimensions LVOT 2.05 cm (M/F) 1.5-2.5 LA Volume 32.90 mL LA Volume Index 13.76 mL/m2 (M/F) 16-34 M-Mode Dimensions RVDd 2.80 cm (0.9-2.6) LA Diam 4.49 cm (1.9-4.0) LVDd 5.95 cm (3.5-5.7) Ao Diam 2.76 cm (2.0-3.7) LVDs 4.13 cm (3.5-5.7) IVSd 0.44 cm (0.6-1.1) PWd 0.79 cm (0.6-1.1) EF (Teich) 57.20% FS 30.60% EDV (Teich) 176.60 mL ESV (Teich) 75.50 mL LV Diastology E Decel Time 230.00 (160-240 msec) E/A Ratio 1.2 MED E' 4.40 (< 7 cm/sec) E'/MED E' Ratio 24.02 (>14) LAT E' 7.70 (<10 cm/sec) E/LAT E' Ratio 13.73 (>14) Aortic Valve AO Peak GR. 9.60 mmHg Mitral Valve MV E Max Wale. 106.00 (40-130 cm/s) MV A Velocity 86.00 (40-130 cm/s) E/A Ratio 1.22 MV Decel. Time 230.00 (160-240 ms) MV PHT 67.00 ms Pulmonary Valve PV Peak Velocity 91.00 (50-150 cm/s) Tricuspid Valve TR P. Velocity 146.00 cm/s RAP Estimate 10.00 mmHg RVSP 18.50 mmHg Left Ventricle Left atrium is mildly enlarged, left ventricle is normal size, mild concentric left ventricular hypertrophy, visually estimated ejection fraction 55% with no regional wall motion abnormality, grade 1 diastolic dysfunction seen with tissue Doppler evidence of raise left atrial pressure. Right Ventricle Right atrium and right ventricle are mildly enlarged with normal contractility. Aortic Valve Aortic valve is minimally thickened and fibrosed, there is no aortic stenosis or aortic insufficiency. Mitral Valve Mitral valve is grossly normal, there is mild mitral regurgitation. Tricuspid Valve Tricuspid valve is grossly normal, there is mild tricuspid regurgitation, tricuspid regurgitation jet velocity is inadequate for calculation of the right ventricular systolic pressure. Pulmonic Valve Pulmonic valve is poorly visualized. Great Vessels Aortic root is normal size. Pericardium No significant pericardial effusion noted. Conclusion 1. Mild biatrial enlargement, normal left ventricular size, mild concentric left ventricular hypertrophy, visually estimated ejection fraction 55% with no regional wall motion abnormality, grade 1 diastolic dysfunction seen with tissue Doppler evidence of raise left atrial pressure. 2. Mildly enlarged right ventricle with normal contractility. 3. Mild mitral and tricuspid regurgitation. 4. No significant pericardial effusion noted. Electronically signed by : Braulio Reynolds, 08/21/2020 21:22:38
== END ==
PROVIDERS: PCP Nurse Practitioner Family; Visit Provider Urology
DX: R06.02 Shortness of breath; R06.00 Dyspnea, unspecified; R06.01 Orthopnea
CPT/HCPCS: 93306

== ENCOUNTER 2020-10-19 13:00 | Outpatient (RCR) | payer MEDICARE, MEDICAID, SELFPAY ==
--- NOTE | 2020-08-06 13:53 | HMH.OTOPEV ---
OT Inpatient Evaluation Rehab OT Outpatient Eval Start: 08/06/20 13:43 Freq: Status: Active Protocol: Document 08/06/20 13:43 CARLOTTA (Rec: 08/06/20 13:53 CARLOTTA [id number]) Electronically Signed By Karolina Nicholson OT 08/06/20 13:43 Outpatient Therapy Subjective History Subjective History 65 year old male referred to skilled OP OT services for L shoulder pain. Patient verbalize having a fall at home resulting in L shoulder pain for the past month. Patient verbalize difficulty with reaching, lifting and dressing with L shoulder 2* intermittent pain. Chief Complaint Pain Symptom Type Ache Symptoms Relieved By Nothing Symptoms Aggravated By Physical Activity Prior Functional Limitations Reaching,Lifting,Recreation Activity Current Functional Limitations Reaching,Lifting,Recreation Activity Symptom Description Intermittent Level of pain today (0-10) 7 Pain scale - at its best (0-10) 7 Pain scale - at its worst (0-10) 9 Shoulder/Elbow Eval Shoulder Objective Measurements Shoulder ROM Left Shoulder Abduction Active Range of 90 Motion (degrees) Shoulder Flexion Active Range of Motion 125 (degrees) Query Text: Shoulder External Rotation Active Range 35 of Motion (degrees) Shoulder Internal Rotation Active Range 60 of Motion (degrees) pain with active ROM shoulder exam left standard Shoulder MMT Shoulder Abduction Strength Grade 3- Fair- Shoulder Extension Strength Grade 3- Fair- Shoulder Flexion Strength Grade 3- Fair- Shoulder Horizontal Abduction Strength 3- Fair- Grade Infraspinatus/Teres Minor Strength Grade 3- Fair- Shoulder External Rotation Strength 3- Fair- Grade Shoulder Internal Rotation Strength 3- Fair- Grade Shoulder Special Tests impingement sign present shoulder exam left standard Shoulder Empty Can (Supraspinatus) Test Positive Left Shoulder Montemayor-Enzo Impingement Positive Left Test Elbow Objective Measurements OT Outpatient Assessment Impairments Problems/Impairments Impaired Range of Motion, Impaired Strength,Impaired Endurance,Subjective C/O Pain Prognosis Rehab Potential Good Clinical Impression Consistent with Diagnosis
--- NOTE | 2020-09-11 13:59 | HMH.RHREAS ---
Rehab Reassessment Rehab OP Re-assessment Start: 09/11/20 13:46 Freq: Status: Active Protocol: Document 09/11/20 13:48 RAHELMARIZOL (Rec: 09/11/20 13:55 [email or web address] [id number]) Electronically Signed By Karolina Nicholson OT 09/11/20 13:48 Rehab Re-assessment Subjective Subjective My shoulder has been feeling better. Objective Objective Notes Patient has been participating well 2x/wk since the SOC. Patient has participated in skilled OP services of thera act, thera exer, self care, manual therapy and modalities (e-stim/US) to improve L UE AROM, L UE strengthening, increase endurance and decrease pain levels. Assessment Progress Assessment Progressing as Expected Assessment Notes AROM of L UE Flex: 180 ABD: 80 ER:90 IR:60 L UE strength: 3+/4- out of 5 5/10 pain at worst 30 mins endurance prior to RB Patient goals met L UE AROM flex: 180 IR: 60 ER: 90 5/10 pain at worst 30 mins of endurance prior to RB Goals Not Met AROM of L UE ABD Revised Goals AROM of L UE ABD: 110 IR: 65 L UE strength: 4- to 4/5 40 mins of endurance of exer prior to RB Plan Plan Continue POC Frequency of Therapy 2 Duration of therapy 4 Time and Billing Re-Eval Time 15 Re-Eval Billing Units 1 PHYSICIAN CERTIFICATION: I certify the specified therapy services for Hakeem Cat are required, authorized, and reviewed every 30 days.
== END 2020-10-19 13:05 | disposition home or self-care (01) ==
LOC: OT 13:00
PROVIDERS: Visit Provider Specialist
DX: M25.512 Pain in left shoulder (principal)
CPT/HCPCS: 97010; 97014; 97110; 97140; 97164; 97165; 97530; G0283

== ENCOUNTER → 2021-03-15 16:17 | Outpatient (CLI) | payer MEDICARE, MEDICAID, SELFPAY ==
[2021-03-15 17:39] LABS: Creatinine,Urine Random 73 mg/dL (Not Estab.)
[2021-03-15 17:46] LABS: Microalbumin < 6.000 mg/L (0-16.7)
[2021-03-15 19:40] LABS: Albumin Level 3.6 g/dl (3.5-5.0); Anion Gap 14.5 mEq/L (5-15); Blood Urea Nitrogen 21 mg/dl (9-20); Calcium 8.9 mg/dl (8.4-10.2); Carbon Dioxide 23 mmol/L (22.0-30.0); Chloride 102 mmol/L (98-107); Estimated Glomerular Filt Rate 61 ml/min (>60); GFR (African American) 74 ML/MIN (>60); Glucose 182 mg/dl (74-100); Phosphorous 3.5 mg/dl (2.5-4.5); Potassium 4.5 mmoL/L (3.5-5.1); Sodium 135 mmol/L (136-145)
[2021-03-15 20:16] LABS: Basophils % 0.5 % (0.1-2.0); Eosinophils # 0.1 K/mm3 (0.0-0.4); Eosinophils % 1.5 % (0.1-12.0); Hematocrit 36.3 % (42.0-52.0); Hemoglobin 12.2 g/dL (14.1-18.0); Lymphocytes # 1.3 K/mm3 (0.7-4.5); Lymphocytes % 20.4 % (10-50); Mean Corpuscular HGB Conc 33.5 g/dL (31.8-35.4); Mean Corpuscular Hemoglobin 33.3 pg (27.0-31.2); Mean Corpuscular Volume 99.3 fl (80-94); Mean Platelet Volume 8.4 fl (7.4-10.4); Monocytes # 0.5 K/mm3 (0.1-1.0); Monocytes % 7.4 % (1.7-9.3); Neutrophils # 4.4 K/mm3 (1.8-7.8); Neutrophils % 70.2 % (37.0-80.0); Platelet Count 214 K/mm3 (142-424); Red Blood Count 3.66 M/mm3 (4.60-6.20); Red Cell Distribution Width 13.3 % (11.5-17.5); White Blood Count 6.3 K/mm3 (4.8-10.8)
== END ==
PROVIDERS: Visit Provider Internal Medicine Nephrology
DX: N18.30 Chronic kidney disease, stage 3 unspecified (principal)
CPT/HCPCS: 36415; 80069; 82043; 82570; 85025

== ENCOUNTER → 2021-03-18 13:15 | Outpatient (POV) | payer MEDICARE, MEDICAID, SELFPAY | PROVIDERS: Visit Provider Internal Medicine Nephrology | DX: Z00.00 Encounter for general adult medical examination without abnormal findings (principal) ==

== ENCOUNTER → 2022-05-12 09:55 | Outpatient (CLI) | payer MEDICARE, MEDICAID, SELFPAY ==
[2022-05-12 11:02] LABS: Chloride 104 mmol/L (98-107); Sodium 140 mmol/L (136-145)
[2022-05-12 11:03] LABS: Potassium 4.3 mmoL/L (3.5-5.1)
[2022-05-12 11:05] LABS: Anion Gap 14.3 mEq/L (5-15); Blood Urea Nitrogen 19 mg/dl (9-20); Carbon Dioxide 26 mmol/L (22.0-30.0); Estimated Glomerular Filt Rate 55 ml/min (>60); GFR (African American) 67 ML/MIN (>60)
[2022-05-12 11:06] LABS: Calcium 9.5 mg/dl (8.4-10.2); Glucose 85 mg/dl (74-100)
[2022-05-12 11:45] LABS: Basophils # 0.1 K/mm3 (0-0.2); Basophils % 0.6 % (0.1-2.0); Eosinophils # 0.1 K/mm3 (0.0-0.4); Hematocrit 43.3 % (42.0-52.0); Lymphocytes # 1.5 K/mm3 (0.7-4.5); Lymphocytes % 20.7 % (10-50); Mean Corpuscular HGB Conc 32.3 g/dL (31.8-35.4); Mean Corpuscular Hemoglobin 31.5 pg (27.0-31.2); Mean Corpuscular Volume 97.4 fl (80-94); Monocytes # 0.5 K/mm3 (0.1-1.0); Monocytes % 7.1 % (1.7-9.3); Neutrophils # 5.2 K/mm3 (1.8-7.8); Neutrophils % 70.6 % (37.0-80.0); Platelet Count 228 K/mm3 (142-424); Red Blood Count 4.44 M/mm3 (4.60-6.20); Red Cell Distribution Width 13.8 % (11.5-17.5); White Blood Count 7.3 K/mm3 (4.8-10.8)
== END ==
PROVIDERS: PCP Nurse Practitioner Family; Visit Provider Nurse Practitioner
DX: R06.00 Dyspnea, unspecified (principal); N18.9 Chronic kidney disease, unspecified
CPT/HCPCS: 36415; 80048; 85025

== ENCOUNTER → 2022-06-05 07:19 | Outpatient (CLI) | payer MEDICARE, MEDICAID, SELFPAY | PROVIDERS: PCP Nurse Practitioner Family; Visit Provider Nurse Practitioner | DX: I50.32 Chronic diastolic (congestive) heart failure (principal) | CPT/HCPCS: 78452; 93017; 93306; A9502; J2785 ==

== ENCOUNTER 2022-07-17 10:06 | Day surgery (SDC) | payer MEDICARE, SELFPAY ==
[2022-07-17 10:47] VITALS: BP 136/56; PULSE 74; RESP 18; TEMP 36.7; O2SAT 95
--- NOTE | 2022-07-17 11:14 | EXP.OP.NOTE ---
Date of procedure: 07/17/22 Pre-op Diagnosis:: Right mid back skin lesions History of melanoma (adjacent to above-stated lesions) Post-op Diagnosis:: Same Procedure performed:: Punch biopsy (x2) of right mid back skin lesions Surgeon:: José Manuel Russ MD Anesthesia: local Estimated blood loss (mL): 1 Operative findings:: Significant overall decrease in size versus prior evaluation Dissipation of apparent pigmentation compared to prior evaluation Decision to proceed initially with punch biopsy made secondary to above findings Operative note:: After informed consent was obtained the patient was placed in a seated position. His right mid back was prepped and draped in a sterile fashion. After infiltration local anesthetic a 4 mm punch biopsy was obtained at the adjacent sites. Pressure dressing was applied. The patient was discharged in stable/unchanged condition. Condition: stable Disposition: no change Specimens:: 4 mm punch of right mid back skin lesions (x2) Complications:: No immediate
[2022-07-17 11:15] VITALS: BP 157/89; PULSE 79; RESP 18; TEMP 36.6; O2SAT 94
[2022-07-17 13:13] LABS: POC Glucose,Bedside 130 (70-110)
== END 2022-07-17 11:15 | disposition home or self-care (01) ==
PROVIDERS: PCP Nurse Practitioner Family; Visit Provider Surgery
DX: L73.9 Follicular disorder, unspecified (principal); E11.9 Type 2 diabetes mellitus without complications; Z85.820 Personal history of malignant melanoma of skin; Z79.899 Other long term (current) drug therapy
CPT/HCPCS: 11104; 11105; 82962; 88305; 88312

== ENCOUNTER → 2022-08-16 11:56 | Outpatient (CLI) | payer MEDICARE, SELFPAY ==
[2022-08-16 12:27] LABS: Basophils # 0.1 K/mm3 (0-0.2); Basophils % 1.1 % (0.1-2.0); Eosinophils # 0.2 K/mm3 (0.0-0.4); Eosinophils % 2.5 % (0.1-12.0); Hematocrit 42.2 % (42.0-52.0); Hemoglobin 13.9 g/dL (14.1-18.0); Lymphocytes # 1.7 K/mm3 (0.7-4.5); Lymphocytes % 21.7 % (10-50); Mean Corpuscular HGB Conc 32.9 g/dL (31.8-35.4); Mean Corpuscular Hemoglobin 32.2 pg (27.0-31.2); Mean Corpuscular Volume 97.9 fl (80-94); Mean Platelet Volume 8.6 fl (7.4-10.4); Monocytes # 0.5 K/mm3 (0.1-1.0); Monocytes % 5.8 % (1.7-9.3); Neutrophils # 5.3 K/mm3 (1.8-7.8); Neutrophils % 68.9 % (37.0-80.0); Platelet Count 209 K/mm3 (142-424); Red Blood Count 4.31 M/mm3 (4.60-6.20); Red Cell Distribution Width 13.7 % (11.5-17.5); White Blood Count 7.7 K/mm3 (4.8-10.8)
[2022-08-16 13:17] LABS: Anion Gap 11.2 mEq/L (5-15); Blood Urea Nitrogen 18 mg/dl (9-20); Calcium 8.9 mg/dl (8.4-10.2); Carbon Dioxide 24 mmol/L (22.0-30.0); Chloride 109 mmol/L (98-107); Estimated Glomerular Filt Rate 61 ml/min (>60); GFR (African American) 73 ML/MIN (>60); Glucose 139 mg/dl (74-100); Phosphorous 3.9 mg/dl (2.5-4.5); Potassium 4.2 mmoL/L (3.5-5.1); Sodium 140 mmol/L (136-145)
[2022-08-16 13:30] LABS: Intact Parathyroid Hormone 38.7 pg/mL (7.5-53.5)
[2022-08-16 13:35] LABS: 25-OH Vitamin D, Total 18.3 ng/mL (30-100)
== END ==
PROVIDERS: PCP Nurse Practitioner Family; Visit Provider Internal Medicine Nephrology
DX: N18.31 Chronic kidney disease, stage 3a (principal); E55.9 Vitamin D deficiency, unspecified
CPT/HCPCS: 36415; 80069; 82306; 83970; 85025

== ENCOUNTER → 2022-08-18 13:00 | Outpatient (POV) | payer MEDICARE, SELFPAY | PROVIDERS: Visit Provider Internal Medicine Nephrology | DX: Z00.00 Encounter for general adult medical examination without abnormal findings (principal) ==

== ENCOUNTER → 2023-01-15 12:50 | Outpatient (CLI) | payer MEDICARE, SELFPAY ==
[2023-01-15 13:41] LABS: Blood Urea Nitrogen 25 mg/dl (9-20); Estimated Glomerular Filt Rate 41 ml/min (>60); GFR (African American) 49 ML/MIN (>60)
== END ==
PROVIDERS: PCP Nurse Practitioner Family; Visit Provider Nurse Practitioner
DX: Z01.812 Encounter for preprocedural laboratory examination (principal)
CPT/HCPCS: 36415; 82565; 84520

== ENCOUNTER 2023-01-16 07:41 | Outpatient (CLI) | payer MEDICARE, SELFPAY ==
[2023-01-16] VITALS (10 sets, daily range): BP systolic 109–167; BP diastolic 64–87; PULSE 65–77; RESP 16–19; TEMP 36.4; O2SAT 93–94
[2023-01-16 08:29] LABS: POC Glucose,Bedside 256 (70-110)
== END 2023-01-16 11:35 | disposition home or self-care (01) ==
LOC: RAD 07:41
PROVIDERS: PCP Nurse Practitioner Family; Visit Provider Nurse Practitioner
DX: E78.5 Hyperlipidemia, unspecified (principal); I44.0 Atrioventricular block, first degree; I50.30 Unspecified diastolic (congestive) heart failure; N18.9 Chronic kidney disease, unspecified; R06.00 Dyspnea, unspecified; R07.2 Precordial pain; I11.0 Hypertensive heart disease with heart failure
CPT/HCPCS: 75574; 82962; Q9967

== ENCOUNTER 2023-02-16 07:57 | Day surgery (SDC) | payer MEDICARE, MEDICAID, SELFPAY ==
[2023-02-16] VITALS (12 sets, daily range): BP systolic 110–141; BP diastolic 52–82; PULSE 64–73; RESP 16–20; TEMP 36.6; O2SAT 90–98; BMI 40.1
--- NOTE | 2023-02-16 | IR_ITS ---
APPROVED REPORT [facility] Nursing Director: SHUBHAM Elkins RT (R) PROCEDURES Left heart catheterization Left ventriculogram Selective coronary angiogram INDICATION Worsening angina pectoris, Known coronary artery disease, Abnormal CTA, Informed consent was obtained prior to the procedure. COMPLICATIONS NONE Estimated Blood Loss: LESS THAN 10 ML TECHNIQUE One percent lidocaine used to anesthetize the right anterior aspect of the wrist. The right radial artery was accessed via the Seldinger technique. A 6 Albanian sheath was placed in the right radial artery. 2.5 mg of Verapamil, 800 mcg of nitroglycerin, 1mg Lidocaine and 5000 U Heparin were given through the arterial sheath. The papa catheter was also used to perform left heart catheterization, left ventriculogram and selective coronary angiogram. At the end of the procedure the sheath was removed good hemostasis was achieved using Traclet band, patient was transferred to the postop holding area in stable condition. ANGIOGRAPHIC RESULTS The left main artery Normal The left anterior descending artery Is proximally normal and then has a mid vessel 30 to 40% stenosis. SARAH II flow was present down the LAD The circumflex artery Large dominant normal The right coronary artery Vestigial normal The BURTON ventriculogram reveals Normal 65% The left ventricular end-diastolic pressure 10 mmHg IMPRESSION Mild to moderate mid LAD disease as described above accompanied by SARAH II flow down the LAD consistent with endothelial dysfunction Normal ejection fraction Normal left ventricular end-diastolic pressure PLAN 1. Treatment of endothelial dysfunction 2. Factor modification 3. No interval change in heart cath since last angiogram Electronically signed by : Nithin London MD 02/16/2023 09:38:07
[2023-02-16 08:30] LABS: Basophils % 0.5 % (0.1-2.0); Eosinophils # 0.2 K/mm3 (0.0-0.4); Eosinophils % 2.6 % (0.1-12.0); Hematocrit 45.6 % (42.0-52.0); Hemoglobin 14.9 g/dL (14.1-18.0); Lymphocytes # 2.1 K/mm3 (0.7-4.5); Lymphocytes % 25.6 % (10-50); Mean Corpuscular HGB Conc 32.8 g/dL (31.8-35.4); Mean Corpuscular Hemoglobin 31.9 pg (27.0-31.2); Mean Corpuscular Volume 97.2 fl (80-94); Mean Platelet Volume 8.7 fl (7.4-10.4); Monocytes # 0.7 K/mm3 (0.1-1.0); Monocytes % 8.2 % (1.7-9.3); Neutrophils # 5.1 K/mm3 (1.8-7.8); Neutrophils % 63.1 % (37.0-80.0); Platelet Count 264 K/mm3 (142-424); Red Blood Count 4.69 M/mm3 (4.60-6.20); Red Cell Distribution Width 13.4 % (11.5-17.5)
[2023-02-16 08:32] LABS: Chloride 104 mmol/L (98-107)
[2023-02-16 08:33] LABS: Potassium 4.4 mmoL/L (3.5-5.1); Sodium 138 mmol/L (136-145)
[2023-02-16 08:36] LABS: Anion Gap 15.4 mEq/L (5-15); Blood Urea Nitrogen 23 mg/dl (9-20); Calcium 9.9 mg/dl (8.4-10.2); Carbon Dioxide 23 mmol/L (22.0-30.0); Creatinine Clearance Estimated 87 mL/min (50-200); Estimated Glomerular Filt Rate 51 ml/min (>60); GFR (African American) 61 ML/MIN (>60); Glucose 113 mg/dl (74-100)
== END 2023-02-16 12:25 | disposition home or self-care (01) ==
PROVIDERS: PCP Nurse Practitioner Family; Visit Provider Internal Medicine
DX: I25.118 Atherosclerotic heart disease of native coronary artery with other forms of angina pectoris (principal); E11.22 Type 2 diabetes mellitus with diabetic chronic kidney disease; I13.0 Hypertensive heart and chronic kidney disease with heart failure and stage 1 through stage 4 chronic kidney disease, or unspecified chronic kidney disease; N18.9 Chronic kidney disease, unspecified; I50.32 Chronic diastolic (congestive) heart failure; E78.5 Hyperlipidemia, unspecified; Z87.891 Personal history of nicotine dependence; Z79.899 Other long term (current) drug therapy; Z79.4 Long term (current) use of insulin; I44.0 Atrioventricular block, first degree; I27.20 Pulmonary hypertension, unspecified
CPT/HCPCS: 80048; 85025; 93458; 99152; C1725; C1760; C1769; J1644; Q9967

== ENCOUNTER 2023-08-26 14:02 | Outpatient (CLI) | payer MEDICARE, MEDICAID, SELFPAY ==
[2023-08-26 15:01] LABS: Creatinine,Urine Random 36 mg/dL (Not Estab.)
[2023-08-26 15:21] LABS: Microalbumin < 6.000 mg/L (0-16.7)
[2023-08-26 16:01] LABS: Albumin Level 3.9 g/dl (3.5-5.0); Anion Gap 13.4 mEq/L (5-15); Blood Urea Nitrogen 19 mg/dl (9-20); Calcium 9.3 mg/dl (8.4-10.2); Carbon Dioxide 23 mmol/L (22.0-30.0); Chloride 102 mmol/L (98-107); Estimated Glomerular Filt Rate 67 ml/min (>60); GFR (African American) 81 ML/MIN (>60); Glucose 131 mg/dl (74-100); Phosphorous 4.5 mg/dl (2.5-4.5); Potassium 4.4 mmoL/L (3.5-5.1); Sodium 134 mmol/L (136-145)
[2023-08-26 16:02] LABS: 25-OH Vitamin D, Total 29.4 ng/mL (30-100)
[2023-08-26 16:13] LABS: Intact Parathyroid Hormone 29.4 pg/mL (7.5-53.5)
== END 2023-08-26 23:59 ==
LOC: LAB 14:04
PROVIDERS: PCP Nurse Practitioner Family; Visit Provider Internal Medicine Nephrology
DX: N18.2 Chronic kidney disease, stage 2 (mild) (principal); I10 Essential (primary) hypertension; E55.9 Vitamin D deficiency, unspecified
CPT/HCPCS: 36415; 80069; 82043; 82306; 82570; 83970

== ENCOUNTER 2023-08-31 09:42 | Outpatient (POV) | payer MEDICARE, MEDICAID, SELFPAY | END 2023-08-31 23:59 | disposition home or self-care (01) | LOC: SC 09:42 | PROVIDERS: Visit Provider Nurse Practitioner | DX: Z00.00 Encounter for general adult medical examination without abnormal findings (principal) ==

== ENCOUNTER 2023-11-05 09:45 | Observation (INO) | payer MEDICARE, MEDICAID, SELFPAY ==
[2023-11-05] VITALS (14 sets, daily range): BP systolic 98–149; BP diastolic 61–95; PULSE 84–100; RESP 16–20; TEMP 36.5–36.8; O2SAT 95–99; BMI 35.4; BMI 36.1
--- NOTE | 2023-11-05 10:54 | XR_ITS ---
FINAL REPORT CLINICAL HISTORY: fall, recent knee replacement FINDINGS: Left tibia fibula Two views were obtained. There is no acute fracture or dislocation. There are postoperative changes in the knee and proximal tibia. No soft tissue abnormality is identified. IMPRESSION: No acute process. Reviewed, Interpreted and Dictated by Willam Melton III, MD Transcribed by Lore Hart Authenticated and [facility]
--- NOTE | 2023-11-05 10:54 | XR_ITS ---
FINAL REPORT CLINICAL HISTORY: fall FINDINGS: Left hip Four views were obtained. There is no acute fracture or dislocation. Bilateral hip arthroplasties are identified. There is chronic calcification superior to the left greater trochanter. There is a foreign body in the medial right hip measuring 26 mm. IMPRESSION: Postsurgical and chronic appearing findings. Foreign body in the medial right hip. Reviewed, Interpreted and Dictated by Willam Melton III, MD Transcribed by Lore Hart Authenticated and [facility]
--- NOTE | 2023-11-05 10:54 | XR_ITS ---
FINAL REPORT CLINICAL HISTORY: fall, recent knee replacement FINDINGS: Left knee Two views were obtained. There is no acute fracture or dislocation. Patient is status post left knee arthroplasty. There are postoperative changes in the proximal tibia. Prepatellar soft tissue swelling is seen. IMPRESSION: No acute process. Reviewed, Interpreted and Dictated by Willam Melton III, MD Transcribed by Lore Hart Authenticated and [facility]
--- NOTE | 2023-11-05 10:54 | XR_ITS ---
FINAL REPORT CLINICAL HISTORY: fall, recent knee replacement FINDINGS: Left femur Two views were obtained. There is no acute fracture or dislocation. There are postoperative changes from left hip and knee arthroplasties. There is anterior knee soft tissue swelling. IMPRESSION: No acute process. Reviewed, Interpreted and Dictated by Willam Melton III, MD Transcribed by Lore Hart Authenticated and [facility]
--- NOTE | 2023-11-05 10:56 | ED_ITS ---
Discharge Plan Disposition Condition: Fair Chief Complaint: Fall Prescriptions Prescriptions: No Action metoclopramide HCl 10 mg tablet 10 mg PO AC omeprazole 40 mg capsule,delayed release(DR/EC) 40 mg PO DAILY gabapentin 600 mg tablet 1,200 mg PO TID 30 Days Qty: 180 tamsulosin 0.4 mg capsule 0.4 mg PO DAILY hydroxyzine HCl 10 mg tablet 10 mg PO ONCE bupropion HCl 300 mg tablet extended release 24 hr 300 mg PO DAILY albuterol sulfate 90 mcg/actuation HFA aerosol inhaler 1 inh INHALATION Q8H PRN (Reason: COPD) fluticasone furoate-vilanterol 100-25 mcg/dose blister with device 1 inh INHALATION DAILY nitroglycerin [Nitrostat] 0.4 mg tablet, sublingual 0.4 mg sublingual Q5M PRN (Reason: chest pain) Qty: 20 0RF Rx Instructions: do not exceed 3 doses per episode citalopram 40 mg tablet 40 mg PO DAILY Qty: 30 insulin degludec 200 unit/mL (3 mL) insulin pen 35 unit SQ HS Qty: 18 bisoprolol fumarate 5 mg tablet 5 mg PO DAILY hydrocodone-acetaminophen 10-325 mg tablet 1 tab PO TID trazodone 50 mg tablet 100 mg PO HS 90 Days Qty: 180 1RF isosorbide mononitrate 30 mg tablet extended release 24 hr 30 mg PO DAILY Qty: 90 3RF furosemide 40 mg tablet 20 mg PO DAILY ranolazine 500 mg tablet extended release 12 hr See Rx Instructions .ROUTE .COMPLEX Qty: 180 1RF Dose Instruction: TAKE ONE TABLET BY MOUTH 2 TIMES A DAY FOR ANGINA Rx Instructions: TAKE ONE TABLET BY MOUTH 2 TIMES A DAY FOR ANGINA atorvastatin [Lipitor] 80 mg tablet 80 mg PO DAILY Qty: 90 3RF aspirin [Adult Aspirin Regimen] 81 mg tablet,delayed release (DR/EC) 81 mg PO DAILY Qty: 90 3RF spironolactone 50 mg tablet See Rx Instructions .ROUTE .COMPLEX Rx Instructions: TAKE ONE TABLET BY MOUTH ONCE A DAY allopurinol 100 tablet 100 mg PO DAILY Patient Comments: fenofibrate micronized 134 capsule 134 mg PO DAILY Patient Comments: glycopyrrolate-formoterol 9-4.8 mcg HFA aerosol inhaler 2 puff inhalation BID Patient Comments: amlodipine 10 MG tablet 10 mg PO DAILY Referrals Follow up/Referrals: Provider,Referral, [Referring] - See instructions Clinical Impressions Clinical Impression: Knee pain, left, Difficulty walking Discharge ED Provider: Garrett Rodas General Adult HPI <Garrett Rodas DO - Last Filed: 11/05/23 15:00> General Chief complaint: Fall Stated complaint: Fall Time Seen by Provider: 11/05/23 10:45 Mode of Arrival: EMS Source of Information: Patient and EMS Limitations: No Limitations Description of Symptoms (Recalled from ER Triage Doc. by RN): Patient with recent total knee replacement Thursday. Complaint of continuing to fall. States he is unable to hold himself up with the good leg. Family stated to EMS that they are unable to care for the patient and would like to have him placed. History of Present Illness HPI narrative: 68-year-old male with past medical history significant for CHF, anxiety, HLD, HTN, DM, CHAIM, CKD, recent knee replacement on this past Thursday, presents today for evaluation after having a fall at home. Patient states that he has been attempting to ambulate with his walker however due to his weakness he has been unable to ambulate appropriately. He does note that he has had multiple falls. He denies any neck pain, back pain, chest pain, abdominal pain, hip pain. Denies any worsening pain over his left knee where he had his knee replacement. No fevers or chills. No other complaints. Related Data Home Medications Medication Instructions Recorded Confirmed metoclopramide HCl 10 mg tablet 10 mg PO AC STOMACH 07/06/17 09/14/23 omeprazole 40 mg capsule,delayed 40 mg PO DAILY Indigestion 07/06/17 09/14/23 release allopurinol 100 mg tablet 100 mg PO DAILY gout 07/27/17 09/14/23 fenofibrate micronized 134 mg 134 mg PO DAILY Cholesterol 07/28/17 09/14/23 capsule citalopram 40 mg tablet 40 mg PO DAILY mood #30 tabs 10/22/18 09/14/23 gabapentin 600 mg tablet 1,200 mg PO TID Pain 30 days #180 03/24/19 09/14/23 tabs tamsulosin 0.4 mg capsule 0.4 mg PO DAILY prostate 08/08/19 09/14/23 amlodipine 10 mg tablet 10 mg PO DAILY High blood pressure 03/03/20 09/14/23 hydroxyzine HCl 10 mg tablet 10 mg PO ONCE Anxiety 08/01/20 09/14/23 albuterol sulfate 90 mcg/actuation 1 inh inhalation Q8H PRN COPD 11/21/20 09/14/23 aerosol inhaler bupropion HCl 300 mg 24 hr tablet, 300 mg PO DAILY Depression 11/21/20 09/14/23 extended release fluticasone furoate 100 1 inh inhalation DAILY COPD 11/21/20 09/14/23 mcg-vilanterol 25 mcg/dose inhalation powder bisoprolol fumarate 5 mg tablet 5 mg PO DAILY HR 03/27/22 09/14/23 glycopyrrolate 9 mcg-formoterol 2 puff inhalation BID Breathing 05/12/22 09/14/23 4.8 mcg HFA aerosol inhaler problems spironolactone 50 mg tablet See Rx Instructions .Route 07/11/22 09/14/23 .COMPLEX CHF hydrocodone 10 mg-acetaminophen 1 tab PO TID Pain 12/10/22 09/14/23 325 mg tablet insulin degludec 200 unit/mL (3 35 unit SQ HS Diabetes #18 mL 12/10/22 09/14/23 mL) subcutaneous pen furosemide 40 mg tablet 20 mg PO DAILY Edema 01/15/23 09/14/23 Previous Rx's Medication Instructions Recorded isosorbide mononitrate 30 mg 30 mg PO DAILY High blood pressure 08/13/21 tablet,extended release 24 hr #90 tabs nitroglycerin 0.4 mg sublingual 0.4 mg sublingual Q5M PRN chest 02/02/23 tablet (Nitrostat) pain #20 tabs ranolazine 500 mg tablet,extended See Rx Instructions .Route 03/10/23 release,12 hr .COMPLEX #180 tabs atorvastatin 80 mg tablet (Lipitor) 80 mg PO DAILY #90 tabs 04/28/23 aspirin 81 mg tablet,delayed 81 mg PO DAILY #90 tabs 05/07/23 release (Adult Aspirin Regimen) trazodone 50 mg tablet 100 mg (2 x 50 mg) PO HS insomnia 07/02/23 90 days #180 tabs Allergies Allergy/AdvReac Type Severity Reaction Status Date / Time Sulfa (Sulfonamide Allergy Mild Verified 09/14/23 14:10 Antibiotics) bactrim Allergy Mild Rash Uncoded 09/14/23 14:12 [facility] <DO Meeta Marin Last Filed: 11/05/23 15:00> [facility] Disclaimer: The information contained in this section may have been updated after the patient was seen, as this information can be updated by other users. Medical History History of CHF (congestive heart failure) History of anxiety History of hyperlipidemia History of hypertension History of diabetes mellitus Surgical History History of colonoscopy S/P cholecystectomy S/P hip replacement Family History Other Coronary artery disease Diabetes Heart attack Social History Smoking Status: Unknown if ever smoked second hand exposure: No alcohol intake: never counseling provided: none substance use type: denies use current occupational status: unemployed and retired Travel in the last 8 weeks: Inside the [place] household members: significant other housing: other current occupation: RETIRED current occupational exposures/hazards: No caffeine: No <Garrett Rodas DO - Last Filed: 11/05/23 15:00> ROS Obtained: Yes All systems reviewed & no additional complaints except as documented Physical Exam <DO Meeta Marin Last Filed: 11/05/23 15:00> General General appearance: alert and in no apparent distress Head Head exam: atraumatic and normocephalic Eye Eye exam: Present normal appearance, PERRL and EOMI ENT ENT exam: Present normal oropharynx and mucous membranes moist Neck Neck exam: Present full ROM; Absent meningismus Respiratory Respiratory exam: Absent respiratory distress, wheezes, stridor or accessory muscle use Cardiovascular Cardiovascular exam: Present normal rhythm Abdominal Exam Abdominal exam: Present soft; Absent distention, tenderness, guarding, rebound or rigidity Extremities Exam Extremities exam: Present other (Postsurgical scar spanning across the left knee, well-appearing with no surrounding erythema or drainage. No tenderness to palpation. There is ecchymosis along the mid thigh.) Neurological Exam Neurological exam: Present alert, oriented X3 and CN II-XII intact; Absent motor sensory deficit Psychiatric Psychiatric exam: Present normal affect and normal mood Skin Skin exam: Present warm and dry Medical Decision Making <DO Meeta Marin Last Filed: 11/05/23 15:00> Medical Records Medical records reviewed: Yes I reviewed the patient's medical records. Jordan Inquiry Pt receiving controlled substance: No Jordan was queried for this patient: No Vital Signs: 11/05/23 09:45 11/05/23 10:31 11/05/23 11:01 Temperature 98.0 F Temperature Source Oral Pulse Rate 100 H 94 H Pulse Rate [Radial] 93 H Respiratory Rate 16 Blood Pressure 102/67 L 98/73 L Blood Pressure [Right Arm] 126/95 H Blood Pressure Mean 78 80 Blood Pressure Mean [Right Arm] 105 Blood Pressure Source [Right Arm] Automatic Cuff Blood Pressure Position [Right Arm] Sitting 02 Sat by Pulse Oximetry 98 98 97 Oxygen Delivery Method Room Air 11/05/23 11:31 11/05/23 12:01 11/05/23 12:32 Temperature Temperature Source Pulse Rate 97 H 93 H 93 H Pulse Rate [Radial] Respiratory Rate Blood Pressure 122/85 120/69 120/65 Blood Pressure [Right Arm] Blood Pressure Mean 94 86 88 Blood Pressure Mean [Right Arm] Blood Pressure Source [Right Arm] Blood Pressure Position [Right Arm] 02 Sat by Pulse Oximetry 98 95 97 Oxygen Delivery Method 11/05/23 13:01 11/05/23 13:57 11/05/23 14:00 Temperature Temperature Source Pulse Rate 84 93 H Pulse Rate [Radial] Respiratory Rate Blood Pressure 100/66 L 126/95 H 117/85 Blood Pressure [Right Arm] Blood Pressure Mean 84 102 98 Blood Pressure Mean [Right Arm] Blood Pressure Source [Right Arm] Blood Pressure Position [Right Arm] 02 Sat by Pulse Oximetry 98 98 97 Oxygen Delivery Method 11/05/23 14:31 11/05/23 15:36 Temperature Temperature Source Pulse Rate 92 H 95 H Pulse Rate [Radial] Respiratory Rate Blood Pressure 120/63 118/68 Blood Pressure [Right Arm] Blood Pressure Mean 82 84 Blood Pressure Mean [Right Arm] Blood Pressure Source [Right Arm] Blood Pressure Position [Right Arm] 02 Sat by Pulse Oximetry 96 99 Oxygen Delivery Method Orders (Tests/Meds): ED MEDICATIONS Discontinued Medications Generic Name Dose Route Start Last Admin Trade Name Freq PRN Reason Stop Dose Admin Hydrocodone Bitart/Acetaminophen 1 tab 11/05/23 10:54 11/05/23 11:27 Apap/Hydrocodone 325mg/7.5mg Tab PO 11/05/23 10:55 1 tab ONCE ONE Administration Oxycodone HCl 5 mg 11/05/23 15:39 Oxycodone 5mg Immediate Release Tablet PO 11/05/23 15:40 ONCE ONE ORDERS Category Date Time Status Femur XR left 2 views [XR femur LT 2V] Stat Exams 11/05/23 10:54 Completed Fibula/tibia XR left 2 views [XR tibia fibula LT 2V] Exams 11/05/23 10:54 Completed Stat Hip XR left minimum 2 views [XR hip LT 2-3V w/pelvis] Exams 11/05/23 10:54 Completed Stat Knee XR left 2 views [XR knee LT 2V] Stat Exams 11/05/23 10:54 Completed Medical Decision Narrative: 68-year-old male with past medical history significant for CHF, anxiety, HLD, HTN, DM, CHAIM, CKD, recent knee replacement on this past Thursday, presents today for evaluation after having a fall at home. Patient states that he has been attempting to ambulate with his walker however due to his weakness he has been unable to ambulate appropriately. He does note that he has had multiple falls. He denies any neck pain, back pain, chest pain, abdominal pain, hip pain. Denies any worsening pain over his left knee where he had his knee replacement. On assessment he was medically stable and in no acute distress. Afebrile. There is a surgical scar spanning across the left knee that was well-appearing with no surrounding erythema or signs of drainage. Minimal tenderness to palpation. Ecchymosis noted along the medial aspect of the left thigh. He denies any midline dislocation of the C/T/L-spine. No abdominal or chest wall tenderness. No pelvic tenderness. No other extremity tenderness. Palpable DP pulses. Differential diagnoses include not limited to hardware complication, fracture, among others. Patient's x-ray imaging on my informal interpretation did not show any acute bony abnormalities and no displacement with his hardware. Radiology report confirms no acute abnormalities. I did speak with patient's son Mr. Goss over the phone and discussed patient's ED workup and management. He has noted that patient lives alone and needs significant assistance since his knee replacement and has had multiple falls. Seeking placement at this time. Given this I did consult with case management and they have agreed to evaluate patient and provide assistance. At this time, final evaluation by case management is pending and care signed out to oncoming provider pending placement. <José Mukherjee MD - Last Filed: 11/05/23 15:54> Vital Signs: 11/05/23 09:45 11/05/23 10:31 11/05/23 11:01 Temperature 98.0 F Temperature Source Oral Pulse Rate 100 H 94 H Pulse Rate [Radial] 93 H Respiratory Rate 16 Blood Pressure 102/67 L 98/73 L Blood Pressure [Right Arm] 126/95 H Blood Pressure Mean 78 80 Blood Pressure Mean [Right Arm] 105 Blood Pressure Source [Right Arm] Automatic Cuff Blood Pressure Position [Right Arm] Sitting 02 Sat by Pulse Oximetry 98 98 97 Oxygen Delivery Method Room Air 11/05/23 11:31 11/05/23 12:01 11/05/23 12:32 Temperature Temperature Source Pulse Rate 97 H 93 H 93 H Pulse Rate [Radial] Respiratory Rate Blood Pressure 122/85 120/69 120/65 Blood Pressure [Right Arm] Blood Pressure Mean 94 86 88 Blood Pressure Mean [Right Arm] Blood Pressure Source [Right Arm] Blood Pressure Position [Right Arm] 02 Sat by Pulse Oximetry 98 95 97 Oxygen Delivery Method 11/05/23 13:01 11/05/23 13:57 11/05/23 14:00 Temperature Temperature Source Pulse Rate 84 93 H Pulse Rate [Radial] Respiratory Rate Blood Pressure 100/66 L 126/95 H 117/85 Blood Pressure [Right Arm] Blood Pressure Mean 84 102 98 Blood Pressure Mean [Right Arm] Blood Pressure Source [Right Arm] Blood Pressure Position [Right Arm] 02 Sat by Pulse Oximetry 98 98 97 Oxygen Delivery Method 11/05/23 14:31 11/05/23 15:36 Temperature Temperature Source Pulse Rate 92 H 95 H Pulse Rate [Radial] Respiratory Rate Blood Pressure 120/63 118/68 Blood Pressure [Right Arm] Blood Pressure Mean 82 84 Blood Pressure Mean [Right Arm] Blood Pressure Source [Right Arm] Blood Pressure Position [Right Arm] 02 Sat by Pulse Oximetry 96 99 Oxygen Delivery Method Orders (Tests/Meds): ED MEDICATIONS Discontinued Medications Generic Name Dose Route Start Last Admin Trade Name Freq PRN Reason Stop Dose Admin Hydrocodone Bitart/Acetaminophen 1 tab 11/05/23 10:54 11/05/23 11:27 Apap/Hydrocodone 325mg/7.5mg Tab PO 11/05/23 10:55 1 tab ONCE ONE Administration Oxycodone HCl 5 mg 11/05/23 15:39 Oxycodone 5mg Immediate Release Tablet PO 11/05/23 15:40 ONCE ONE ORDERS Category Date Time Status Femur XR left 2 views [XR femur LT 2V] Stat Exams 11/05/23 10:54 Completed Fibula/tibia XR left 2 views [XR tibia fibula LT 2V] Exams 11/05/23 10:54 Completed Stat Hip XR left minimum 2 views [XR hip LT 2-3V w/pelvis] Exams 11/05/23 10:54 Completed Stat Knee XR left 2 views [XR knee LT 2V] Stat Exams 11/05/23 10:54 Completed Medical Decision Narrative: 68-year-old male with past medical history significant for CHF, anxiety, HLD, HTN, DM, CHAIM, CKD, recent knee replacement on this past Thursday, presents today for evaluation after having a fall at home. Patient states that he has been attempting to ambulate with his walker however due to his weakness he has been unable to ambulate appropriately. He does note that he has had multiple falls. He denies any neck pain, back pain, chest pain, abdominal pain, hip pain. Denies any worsening pain over his left knee where he had his knee replacement. On assessment he was medically stable and in no acute distress. Afebrile. There is a surgical scar spanning across the left knee that was well-appearing with no surrounding erythema or signs of drainage. Minimal tenderness to palpation. Ecchymosis noted along the medial aspect of the left thigh. He denies any midline dislocation of the C/T/L-spine. No abdominal or chest wall tenderness. No pelvic tenderness. No other extremity tenderness. Palpable DP pulses. Differential diagnoses include not limited to hardware complication, fracture, among others. Patient's x-ray imaging on my informal interpretation did not show any acute bony abnormalities and no displacement with his hardware. Radiology report confirms no acute abnormalities. I did speak with patient's son Mr. Goss over the phone and discussed patient's ED workup and management. He has noted that patient lives alone and needs significant assistance since his knee replacement and has had multiple falls. Seeking placement at this time. Given this I did consult with case management and they have agreed to evaluate patient and provide assistance. At this time, final evaluation by case management is pending and care signed out to oncoming provider pending placement. With department: Upon assumption of care patient was hemodynamically stable. X- rays reviewed by me and are nonactionable, postsurgical and chronic appearing findings, there is a foreign body in the right medial hip. Upon repeat questioning of the patient he had his hip replaced in 2001, it appears that this is a piece of wire in his hip however with orthogonal views it is difficult to see if the wire is on the other side of his hardware however there is none visualized on the bed and patient does not have any metal in his clothing so I suspect it is in his medial hip and not erroneous. However given no acute hip problems right and no acute trauma no intervention is warranted at this time. Case management evaluated the patient, patient is unable to be placed from the ER today. Physical therapy evaluated the patient. Given that patient has acute functional Garcia with inability to take care of activities of daily living even with a walker patient is unsafe to discharge home. The case was discussed with hospital medicine who will meet the patient to service for continued evaluation at this time. Critical Care <Garrett Rodas DO - Last Filed: 11/05/23 15:00> Critical Care Time Critical Care Time: No
[2023-11-05] MEDS: APAP/HYDROCODONE 325MG/7.5MG TAB 1 TAB PO (11:27)
--- NOTE | 2023-11-05 14:21 | SW/DCPLANNER ---
Addendum entered by [facility] 11/06/23 10:48: This patient has been approved SNF level of care. Patient will discharge to [facility] today. Addendum entered by [facility] 11/06/23 09:58: Patient is agreeable to [facility]. Addendum entered by [facility] 11/06/23 08:48: Carmela w/ [facility] stated that she can accept this patient and start auth today. I will follow up w/ patient regarding situation. Patient is medically stable for discharge. Addendum entered by [facility] 11/06/23 07:43: Alondra w/ [facility] is unable to accept this patient due to insurance. I will continue to follow up w/ Avelina sandoval [facility] and [facility]. Original Note: I received a call from ED regarding possible placement for this patient. I spoke w/ patient in ED regarding plans at time of discharge. Patient stated that he resides at home alone and is in need of placement. Patient recently did have knee replacement surgery at [facility]. Patient is agreeable to the following facilities: [facility] Calvillo [facility] and [facility]. I will fax information to facilities and continue to follow up.
--- NOTE | 2023-11-05 14:33 | PC.NURSE ---
called and got a diabetic food tray
--- NOTE | 2023-11-05 15:54 | PC.NURSE ---
pt to be admitted to room 207, admissions called.
--- NOTE | 2023-11-05 15:58 | HMH.PTEV ---
Physical Therapy Evaluation Rehab PT IP Evaluation Start: 11/05/23 14:03 Freq: ONCE Status: Active Protocol: Document 11/05/23 15:52 PHORNE (Rec: 11/05/23 15:58 PHORNE Laptop) Subjective/History History History 68 yowm who presented to the ED after a fall at home while walking with his RW. He had L TKA performed 3 days ago and has been home since that time. He has PMH of CHF, anxiety, HLD, HTN, DM, CHAIM, CKD. He reports he lives alone, but had a friend helping him since surgery. X-ray was negative for constanza-prosthetic fx. Subjective Subjective Currently he reports pain in his L LE. He does agree to mobility assessment. New diagnosis of cancer in past 12 No months? Rehab PT IP Eval Objective Appearance Patient Behavior Appropriate Patient Orientation Person,Place,Time Difficulty following instructions none Speech Pattern Clear Ambulation Patient Able to Ambulate Yes Ambulation Observation IP General Gait Pattern Observation Antalgic Gait,Wide Based Gait, Shuffling Step Ambulation Distance (feet) 10 Ambulation Assistive Device Rolling Walker Ambulation Ability Minimal x 1 (25% assist) Balance Ability to Arise Able, uses arms to help Sitting Balance Steady, safe Standing Balance Unsteady Dynamic Sitting Balance Ability Good Dynamic Standing Balance Ability Poor Transfers Sit to Stand Bed Transfer Ability Minimal x 2 (25% assist) Rehab PT IP prob,goals,plan Problems Date of Evaluation: 11/05/23 Discharge Plan PT Discharge Plan Pt is currently most appropriate for rehab placement once medically stable. If he returns home without assistance, he will be at significantly increased risk for further falls, injury , or wounds. Eval Complexity Eval Charge Codes 06628 - High Complexity PHYSICIAN CERTIFICATION: I certify the specified therapy services for Hakeem Cat are required, authorized, and reviewed every 30 days.
--- NOTE | 2023-11-05 16:01 | HMH.OTEV ---
OT Inpatient Evaluation Rehab OT IP Evaluation Start: 11/05/23 14:03 Freq: ONCE Status: Active Protocol: Document 11/05/23 15:54 RMARSHALL (Rec: 11/05/23 16:00 RMARSHALL Laptop) Rehab OT IP Assessment Subjective History Pt oriented x 3 on arrival. Pt seen in [facility] ER today after a fall. Pt had a total knee replacement to left knee this past Thursday and has been at home. However, pt reports a fall at home and inability to transfer without assistance; normally he lives alone. History and physical: 68-year-old male with past medical history significant for CHF, anxiety, HLD, HTN, DM , CHAIM, CKD, recent knee replacement on this past Thursday, presents today for evaluation after having a fall at home. Patient states that he has been attempting to ambulate with his walker however due to his weakness he has been unable to ambulate appropriately. He does note that he has had multiple falls . He denies any neck pain, back pain, chest pain, abdominal pain, hip pain. Denies any worsening pain over his left knee where he had his knee replacement. No fevers or chills. No other complaints. Subjective Before this I was fine. Prior to having a total knee replacement, pt lived at home alone. Pt claims since the knee surgery he has had a friend staying with him to help. Normally he is independent with all ADLs and IADLs and he lives a lone. Pt also still drives. Since surgery, pt has been using rolling walker. Objective Patient Orientation Person,Place,Birthday Right Upper Extremity Gross ROM WFL Left Upper Extremity Gross ROM WFL Bed Mobility bed mobility-scooting,bed mobility - supine/sit,bed mobility - rolling Assist Level Moderate x 2 (50% assist) Transfer Training Sit/Stand Transfer Assist Level Minimal x 2 (25% assist) Lower Body Dressing Ability Unable/dependent Rehab OT IP prob,goals,plan Problems Date of Evaluation: 11/05/23 OT IP Problems Bed Mobility,Transfers,Gait, Balance,Self care,Safety Rehab Potential Rehab Potential Good Equipment Needs Assistive Devices Rolling / Wheeled Walker Plan OT intervention Plan Bed Mobility,Transfers,Balance ,Self care,Safety,Therapeutic Exercise OT Plan Frequency Daily Duration LOS Discharge Goals Bed Mobility Ability Assistance x1 Sit to Stand Chair Transfer Ability Minimal x 1 (25% assist) Chair Transfer Ability Minimal x 1 (25% assist) Chair Transfer Technique Sit to/from Ambulatory Chair Transfer Assistive Devices Rolling Walker Feeding Ability Assist with Tray Set Up Lower Body Dressing Ability Moderate Assistance Upper Body Dressing Ability Contact Guard Bathing Ability Moderate Assistance Performing Toilet Hygiene Ability Moderate Assistance Overall Commode/Toilet Transfer Ability Minimal Assistance Commode/Toilet Transfer Technique Sit to/from Ambulatory Commode/Toilet Transfer Assistive Grab Bars Devices Oral Care Assist Standby Assistance Discharge Plan OT Discharge Plan After completing OT evaluation , pt presents below baseline with functional transfers and ADLs. At this time, pt would benefit most from short term rehab at SNF for continued therapy services. Continued therapy services is important in order for patient to improve strength, safety, endurance, ADL independence, and functional transfers to reach PLOF. Pt agreeable with this plan. Eval Complexity Eval Charge Codes 15254 - Moderate Complexity PHYSICIAN CERTIFICATION: I certify the specified therapy services for Hakeem Cat are required, authorized, and reviewed every 30 days.
[2023-11-05] MEDS: OXYCODONE 5MG IMMEDIATE RELEASE TABLET 5 MG PO (16:03)
--- NOTE | 2023-11-05 16:30 | PC.NURSE ---
Gave report to Pillo Coyle RN.
--- NOTE | 2023-11-05 16:39 | PC.NURSE ---
pt taken by M/S staff to room 207
--- NOTE | 2023-11-05 16:41 | PC.NURSE ---
Pt arrived to the floor at this time via stretcher
--- NOTE | 2023-11-05 18:52 | PC.NURSE ---
i spole with pts pharmacy to get an accurate medication list
--- NOTE | 2023-11-05 18:58 | P.HP_ITS ---
History of Present Illness *Admission Date: 11/05/23 *Reason for visit:: Weakness, falling *History of present illness: Mr. Cat is a 68-year-old male with history of sleep apnea, CKD, obesity, gout, hypertension, the. Presented to the ER with complaint of worsening weakness and falling. Recently had a total knee replacement performed earlier this week. Was discharged home with plan for home health. He has been able to hold himself up or take care of himself at home. Does not have family that can stay with him and lives by himself. EMS brought patient to the hospital due to his debility for evaluation. Family reports he cannot be at home by himself and needs placement. Blood pressure in the ER normal. Mild tachycardia with heart rate between 90 and 95. Patient stable on room air. Medicine was consulted for admission as patient needs placement and is not safe to discharge home. He denies any shortness of breath, chest pain, nausea, vomiting, diarrhea, confusion. Only complaint is of pain in his knee postop. Otherwise alert and oriented at baseline. On arrival to the floor, patient is pleasant. Tolerating p.o. intake. Stable on room air. In no acute distress. Therapy is evaluated, case management assisting with placement referrals. [facility] Disclaimer: The information contained in this section may have been updated after the patient was seen, as this information can be updated by other users. Medical History History of CHF (congestive heart failure) History of anxiety History of hyperlipidemia History of hypertension History of diabetes mellitus Surgical History History of colonoscopy S/P cholecystectomy S/P hip replacement Family History Other Coronary artery disease Diabetes Heart attack Social History Smoking Status: Unknown if ever smoked second hand exposure: No alcohol intake: never counseling provided: none substance use type: denies use current occupational status: unemployed and retired Travel in the last 8 weeks: Inside the [place] household members: significant other housing: other current occupation: RETIRED current occupational exposures/hazards: No caffeine: No Review of Systems Review of Systems Review of systems (narrative): 14 point review of systems performed, pertinent positives and negatives as per HPI Meds Home Medications and Allergies Home Medications Medication Instructions Recorded Confirmed Type allopurinol 100 mg tablet 100 mg PO BID 11/05/23 11/05/23 History aspirin 81 mg tablet,delayed 81 mg PO DAILY 11/05/23 11/05/23 History release atorvastatin 80 mg tablet 80 mg PO HS 11/05/23 11/05/23 History bisoprolol fumarate 5 mg tablet 5 mg PO DAILY 11/05/23 11/05/23 History bupropion HCl 300 mg 24 hr tablet, 300 mg PO DAILY 11/05/23 11/05/23 History extended release (Wellbutrin XL) fenofibrate micronized 134 mg 134 mg PO DAILY 11/05/23 11/05/23 History capsule furosemide 40 mg tablet 40 mg PO DAILY 11/05/23 11/05/23 History gabapentin 600 mg tablet 600 mg PO QID 11/05/23 11/05/23 History hydrocodone 10 mg-acetaminophen 1 tab PO Q8H PRN Breakthrough Pain 11/05/23 11/05/23 History 325 mg tablet isosorbide mononitrate 30 mg 30 mg PO DAILY 11/05/23 11/05/23 History tablet,extended release 24 hr metoclopramide HCl 10 mg tablet 10 mg PO Q6H 11/05/23 11/05/23 History omeprazole 40 mg capsule,delayed 40 mg PO DAILY 11/05/23 11/05/23 History release ranolazine 500 mg tablet,extended 500 mg PO BID 11/05/23 11/05/23 History release,12 hr spironolactone 50 mg tablet 50 mg PO DAILY 11/05/23 11/05/23 History trazodone 50 mg tablet 100 mg PO DAILY 11/05/23 11/05/23 History New Prescriptions to Start Prescriptions: Allergies Allergy/AdvReac Type Severity Reaction Status Date / Time Sulfa (Sulfonamide Allergy Mild Verified 09/14/23 14:10 Antibiotics) bactrim Allergy Mild Rash Uncoded 09/14/23 14:12 Exam Data for Last 24 hours Vital signs and Labs for Last 24 Hours: Temp Pulse Resp BP Pulse Ox O2 Del Method 97.7 F 92 H 18 139/70 96 Room Air 11/05/23 17:03 11/05/23 17:03 11/05/23 17:03 11/05/23 17:03 11/05/23 17:03 11/05/23 17:03 I & O for Last 24 hours: Intake & Output 11/02/23 11/03/23 11/04/23 11/05/23 23:59 23:59 23:59 23:59 Intake Total 480 / 480 Balance 480 / 480 Weight 107.728 kg Constitutional Constitutional: no acute distress, obese, chronically ill appearing and cooperative *Routine HEENT Exam Head: Present normocephalic Eye: Present EOMI and PERRL ENT: Present mucous membranes moist *Routine Neck Exam Neck: Present supple; Absent lymphadenopathy *Routine Respiratory Exam Respiratory: Present CTA bilaterally; Absent rhonchi, wheezes or crackles *Routine Cardiovascular Exam Cardiovascular: Present RRR *Routine Abdominal Exam Abdominal: Present soft and normoactive bowel sounds; Absent tenderness *Routine Rectal Exam Rectal:: deferred *Routine Genitalia Exam Genitalia:: deferred *Routine Extremities Exam Extremities: Present edema (2+ edema with mild warmth of left lower leg, no edema in right leg.); Absent cyanosis or clubbing Comments: Left knee in postsurgical bandages with no active bleeding. No significant erythema or drainage of incisions *Routine Skin Exam Skin: Present intact and warm; Absent rash *Routine Neurological Exam Neurological: Present alert, oriented X3 and moving all extremities; Absent altered mental status Assessment and Plan *Assessment and plan (1) Difficulty walking: Status: Acute Category: Medical Code(s): R26.2 - Difficulty in walking, not elsewhere classified (2) Knee pain, left: Status: Acute Category: Medical Code(s): M25.562 - Pain in left knee (3) Obesity: Status: Chronic Category: Medical Code(s): E66.9 - Obesity, unspecified (4) Hypertensive heart disease: Status: Chronic Qualifiers: Heart failure presence: without heart failure Qualified Code(s): I11.9 - Hypertensive heart disease without heart failure Category: Medical Code(s): I11.9 - Hypertensive heart disease without heart failure (5) Hyperlipidemia: Status: Chronic Qualifiers: Hyperlipidemia type: mixed hyperlipidemia Qualified Code(s): E78.2 - Mixed hyperlipidemia Category: Medical Code(s): E78.5 - Hyperlipidemia, unspecified (6) Lower leg edema: Status: Acute Category: Medical Code(s): R60.0 - Localized edema (7) Type 2 diabetes mellitus with diabetic neuropathy, with long-term current use of insulin: Status: Chronic Category: Medical Code(s): E11.40 - Type 2 diabetes mellitus with diabetic neuropathy, unspecified; 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 Presents with weakness and inability to be independent at home. Needs place ment. Discussed case with ER, request admission for evaluation and placement. Medicine agreed to admit. Hemodynamically stable. Labs pending. Problems addressed as follows: Generalized weakness Status post left TKA -Therapy working with patient, case management assisting with referral for rehab -Surgical wound clean dry and intact - edema in left lower extremity, will diurese with Lasix IV 40 mg x 1 -CBC, CMP, magnesium ordered for the morning Continue allopurinol 100 mg twice daily for gout Continue Wellbutrin 300 mg daily for mood disorder Continue gabapentin 600 mg 4 times a day for neuropathy Continue trazodone 100 mg nightly for sleep Continue hydrocodone every 8 hours as needed for breakthrough pain Continue isosorbide 30 mg daily, ranolazine 500 mg twice daily, spironolactone 50 mg daily, bisoprolol 5 mg daily, aspirin 81 mg daily, and Lipitor 80 mg nightly for CAD, hypertension, hypercholesterolemia Therapy evaluating for placement. Case management assisting with referral. Reported history of diabetes, will obtain A1c and TSH. BMP, BNP, CBC pending to evaluate for anemia, kidney dysfunction, or heart failure complicating his current condition. full code heparin 5000 units BID Cardiac diet
[2023-11-05 20:06] LABS: Chloride 97 mmol/L (98-107); Sodium 129 mmol/L (136-145)
[2023-11-05 20:07] LABS: Potassium 3.7 mmoL/L (3.5-5.1)
[2023-11-05 20:09] LABS: Blood Urea Nitrogen 21 mg/dl (9-20); Creatinine Clearance Estimated 109 mL/min (50-200); Estimated Glomerular Filt Rate 75 ml/min (>60); GFR (African American) 90 ML/MIN (>60)
[2023-11-05 20:10] LABS: Anion Gap 7.7 mEq/L (5-15); Calcium 8.8 mg/dl (8.4-10.2); Carbon Dioxide 28 mmol/L (22.0-30.0); Glucose 248 mg/dl (74-100)
[2023-11-05 20:23] LABS: NT Pro Brain Natriuretic Pep. 577 pg/mL (0-125)
[2023-11-05] MEDS: FUROSEMIDE 40MG/4ML VIAL 40 MG IV (20:28)
[2023-11-05] MEDS: TRAZODONE 50MG TABLET 100 MG PO (20:28)
[2023-11-05] MEDS: METOCLOPRAMIDE 10MG TABLET 10 MG PO (20:28)
[2023-11-05] MEDS: GABAPENTIN 600MG TABLET 600 MG PO (20:28)
[2023-11-05] MEDS: ATORVASTATIN 40MG TABLET 80 MG PO (20:28)
[2023-11-05] MEDS: ALLOPURINOL 100MG TABLET 100 MG PO (20:28)
[2023-11-05 20:29] LABS: Basophils % 0.2 % (0.1-2.0); Eosinophils % 0.5 % (0.1-12.0); Hematocrit 33.8 % (42.0-52.0); Lymphocytes # 1.3 K/mm3 (0.7-4.5); Mean Corpuscular HGB Conc 32.5 g/dL (31.8-35.4); Mean Corpuscular Hemoglobin 32.4 pg (27.0-31.2); Mean Corpuscular Volume 99.5 fl (80-94); Mean Platelet Volume 8.5 fl (7.4-10.4); Monocytes # 0.7 K/mm3 (0.1-1.0); Monocytes % 8.6 % (1.7-9.3); Neutrophils # 5.9 K/mm3 (1.8-7.8); Neutrophils % 74.7 % (37.0-80.0); Platelet Count 335 K/mm3 (142-424); Red Blood Count 3.39 M/mm3 (4.60-6.20); Red Cell Distribution Width 14.1 % (11.5-17.5); White Blood Count 7.9 K/mm3 (4.8-10.8)
[2023-11-05] MEDS: HEPARIN SODIUM 5,000 UNIT/ML VIAL 5000 UNIT SQ (20:29)
[2023-11-05] MEDS: RANOLAZINE 500MG ER TABLET 500 MG PO (20:29)
--- NOTE | 2023-11-05 20:30 | PC.NURSE ---
contacted [facility], [facility] pt glucose 257, orders recieved for sliding scale insulin
[2023-11-05] MEDS: PANTOPRAZOLE 40MG TABLET 40 MG PO (20:32)
[2023-11-05] MEDS: humaLOG 100 UNITS/ML 3ML VIAL (SSI) SQ (20:33)
[2023-11-05 20:35] LABS: Thyroid Stimulating Hormone 0.52 uIU/mL (0.465-4.68)
[2023-11-05 21:14] LABS: Hemoglobin A1C 5.7 % (4.0-6.0)
[2023-11-06] MEDS: METOCLOPRAMIDE 10MG TABLET 10 MG PO ×4 (02:28→17:09)
[2023-11-06 04:00] VITALS: BP 133/70; PULSE 94; RESP 20; TEMP 36.9; O2SAT 95; BMI 35.7
--- NOTE | 2023-11-06 05:03 | PC.NURSE ---
Pt is alert and oriented x4, and currently tolerating RA well. Pt has no complaints and is very pleasant. Pt bed alarm set due to recent falls and high fall risk. Pt has slept well for the most part of this shift. there are no acute changes at this time
[2023-11-06] MEDS: humaLOG 100 UNITS/ML 3ML VIAL (SSI) SQ ×2 (05:50→12:09)
[2023-11-06] MEDS: HYDROCODONE 10MG/APAP 325MG TAB 1 TAB PO ×3 (06:02→17:09)
[2023-11-06 06:24] LABS: POC Glucose,Bedside 257 (70-110)
[2023-11-06 06:25] LABS: POC Glucose,Bedside 232 (70-110)
[2023-11-06 06:48] LABS: Basophils % 0.1 % (0.1-2.0); Eosinophils % 0.4 % (0.1-12.0); Hemoglobin 10.2 g/dL (14.1-18.0); Lymphocytes # 1.3 K/mm3 (0.7-4.5); Lymphocytes % 18.9 % (10-50); Mean Corpuscular Hemoglobin 31.9 pg (27.0-31.2); Mean Corpuscular Volume 96.8 fl (80-94); Mean Platelet Volume 8.6 fl (7.4-10.4); Monocytes # 0.6 K/mm3 (0.1-1.0); Monocytes % 9.1 % (1.7-9.3); Neutrophils # 4.9 K/mm3 (1.8-7.8); Neutrophils % 71.5 % (37.0-80.0); Platelet Count 346 K/mm3 (142-424); Red Blood Count 3.21 M/mm3 (4.60-6.20); Red Cell Distribution Width 14.5 % (11.5-17.5); White Blood Count 6.8 K/mm3 (4.8-10.8)
[2023-11-06 06:59] LABS: Alanine Aminotransferase 21 U/L (12-78); Albumin/Globulin Ratio 1.2 (1.1-1.8); Alkaline Phosphatase 54 U/L (38-126); Anion Gap 8.7 mEq/L (5-15); Aspartate Amino Transferase 33 U/L (17-59); Bilirubin,Total 0.8 mg/dl (0.2-1.3); Blood Urea Nitrogen 20 mg/dl (9-20); Calcium 8.8 mg/dl (8.4-10.2); Carbon Dioxide 29 mmol/L (22.0-30.0); Chloride 97 mmol/L (98-107); Creatinine Clearance Estimated 99 mL/min (50-200); Estimated Glomerular Filt Rate 67 ml/min (>60); GFR (African American) 81 ML/MIN (>60); Globulin 2.5 g/dL (1.3-3.2); Glucose 206 mg/dl (74-100); Magnesium 1.6 mg/dl (1.6-2.3); Potassium 3.7 mmoL/L (3.5-5.1); Sodium 131 mmol/L (136-145); Total Protein,Serum 5.5 g/dl (6.3-8.2)
[2023-11-06 08:00] VITALS: BP 138/60; PULSE 88; RESP 18; TEMP 36.8; O2SAT 93
--- NOTE | 2023-11-06 09:02 | HMH.PHAINT1 ---
Pharmacy Intervention Comments: HOME MEDICATION LIST VERIFIED USING LIST FROM OUTPATIENT PHARMACY
[2023-11-06] MEDS: BISOPROLOL 5MG TABLET 5 MG PO (09:34)
[2023-11-06] MEDS: SPIRONOLACTONE 25MG TABLET 50 MG PO (09:34)
[2023-11-06] MEDS: MAGNESIUM OXIDE 400MG TABLET 400 MG PO (09:34)
[2023-11-06] MEDS: ASPIRIN EC 81MG TABLET 81 MG PO (09:34)
[2023-11-06] MEDS: RANOLAZINE 500MG ER TABLET 500 MG PO (09:34)
[2023-11-06] MEDS: buPROPion HCl SR 150MG TAB 300 MG PO (09:34)
[2023-11-06] MEDS: HEPARIN SODIUM 5,000 UNIT/ML VIAL 5000 UNIT SQ (09:34)
[2023-11-06] MEDS: ISOSORBIDE MONO 30MG TAB.ER.24H 30 MG PO (09:34)
[2023-11-06] MEDS: ALLOPURINOL 100MG TABLET 100 MG PO (09:34)
[2023-11-06] MEDS: GABAPENTIN 600MG TABLET 600 MG PO ×2 (09:34→17:09)
--- NOTE | 2023-11-06 10:53 | P.DS_ITS ---
General Admission date:: 11/05/23 Discharge date: 11/06/23 HPI HPI HPI: Mr. Cat is a 68-year-old male with history of sleep apnea, CKD, obesity, gout, hypertension, the. Presented to the ER with complaint of worsening weakness and falling. Recently had a total knee replacement performed earlier this week. Was discharged home with plan for home health. He has been able to hold himself up or take care of himself at home. Does not have family that can stay with him and lives by himself. EMS brought patient to the hospital due to his debility for evaluation. Family reports he cannot be at home by himself and needs placement. Blood pressure in the ER normal. Mild tachycardia with heart rate between 90 and 95. Patient stable on room air. Medicine was consulted for admission as patient needs placement and is not safe to discharge home. He denies any shortness of breath, chest pain, nausea, vomiting, diarrhea, confusion. Only complaint is of pain in his knee postop. Otherwise alert and oriented at baseline. On arrival to the floor, patient is pleasant. Tolerating p.o. intake. Stable on room air. In no acute distress. Therapy is evaluated, case management assisting with placement referrals. Hospital Course Hospital Course Hospital Course: 68-year-old male with multiple comorbidities who had a recent left knee TKA. Presents with weakness and inability to be independent at home. Needs placement. Discussed case with ER, request admission for evaluation and placement. Medicine agreed to admit. Hemodynamically stable. Patient has done well. Has been accepted for rehab at [facility]. Stable to discharge for rehab. Problems addressed as follows: Generalized weakness Status post left TKA -Patient had surgery earlier this week, unable to care for himself at home. Needs inpatient therapy for rehab to return back to level of independence preoperatively. Therapy working with patient during admission. Has graciously been accepted by [facility] for further management. Surgical wound remains clean dry and intact. Follow-up with orthopedic surgeon at [facility] per previously scheduled recommendations. Pain has remained stable. Does have some mild edema distal to surgical incision. Will continue Lasix daily. Recommend labs including CBC, CMP, magnesium in 1 week. Continue allopurinol 100 mg twice daily for gout Continue Wellbutrin 300 mg daily for mood disorder Continue gabapentin 600 mg 4 times a day for neuropathy Continue trazodone 100 mg nightly for sleep Continue hydrocodone every 8 hours as needed for breakthrough pain Continue isosorbide 30 mg daily, ranolazine 500 mg twice daily, spironolactone 50 mg daily, bisoprolol 5 mg daily, aspirin 81 mg daily, and Lipitor 80 mg nightly for CAD, hypertension, hypercholesterolemia Reported history of diabetes, A1c normal at 5.7. TSH within normal range. Stable to discharge to rehab. Total time spent on discharge 32 minutes in counseling, documentation, chart review, and direct care with patient. Exam Data for Last 24 hours Vital signs and Labs for Last 24 Hours: Temp Pulse Resp BP Pulse Ox O2 Del Method O2 Flow Rate 98.2 F 88 18 138/60 93 L Room Air 2 11/06/23 08:00 11/06/23 08:00 11/06/23 08:00 11/06/23 08:00 11/06/23 08:00 11/06/23 08:00 11/05/23 20:00 Laboratory Results - last 24 hr 11/05/23 09:46: Hemoglobin A1c 5.7, TSH 0.52 11/05/23 19:30: WBC 7.9, RBC 3.39 L, Hgb 11.0 L, Hct 33.8 L, MCV 99.5 H, MCH 32.4 H, MCHC 32.5, RDW 14.1, Plt Count 335, MPV 8.5, Neut % (Auto) 74.7, Lymph % (Auto) 16.0, [place] % (Auto) 8.6, Eos % (Auto) 0.5, Baso % (Auto) 0.2, Neut # (Auto) 5.9, Lymph # (Auto) 1.3, [place] # (Auto) 0.7, Eos # (Auto) 0.0, Baso # (Auto) 0.0, Sodium 129 L, Potassium 3.7, Chloride 97 L, Carbon Dioxide 28, Anion Gap 7.7, BUN 21 H, Creatinine 1.00, Estimated Creat Clear 109, Estimated GFR 75, Est GFR ( Amer) 90, Glucose 248 H, Calcium 8.8, NT-Pro-B Natriuret Pep 577 H 11/05/23 20:21: POC Glucose 257 H 11/06/23 05:48: POC Glucose 232 H 11/06/23 06:18: WBC 6.8, RBC 3.21 L, Hgb 10.2 L, Hct 31.0 L, MCV 96.8 H, MCH 31.9 H, MCHC 33.0, RDW 14.5, Plt Count 346, MPV 8.6, Neut % (Auto) 71.5, Lymph % (Auto) 18.9, [place] % (Auto) 9.1, Eos % (Auto) 0.4, Baso % (Auto) 0.1, Neut # (Auto) 4.9, Lymph # (Auto) 1.3, [place] # (Auto) 0.6, Eos # (Auto) 0.0, Baso # (Auto) 0.0, Sodium 131 L, Potassium 3.7, Chloride 97 L, Carbon Dioxide 29, Anion Gap 8.7, BUN 20, Creatinine 1.10, Estimated Creat Clear 99, Estimated GFR 67, Est GFR ( Amer) 81, Glucose 206 H, Calcium 8.8, Magnesium 1.6, Total Bilirubin 0.8, AST 33, ALT 21, Alkaline Phosphatase 54, Total Protein 5.5 L, Albumin 3.0 L, Globulin 2.5, Albumin/Globulin Ratio 1.2 I & O for Last 24 hours: Intake & Output 11/03/23 11/04/23 11/05/23 11/06/23 23:59 23:59 23:59 23:59 Intake Total 480 / 960 820 / 820 Output Total 400 / 400 400 / 400 Balance 80 / 560 420 / 420 Weight 107.728 kg 107.048 kg Constitutional Constitutional: no acute distress, obese and cooperative *Routine HEENT Exam Head: Present normocephalic Eye: Present EOMI and PERRL ENT: Present mucous membranes moist *Routine Neck Exam Neck: Present supple; Absent lymphadenopathy *Routine Respiratory Exam Respiratory: Present CTA bilaterally; Absent rhonchi, stridor, wheezes or crackles *Routine Cardiovascular Exam Cardiovascular: Present RRR *Routine Abdominal Exam Abdominal: Present soft and normoactive bowel sounds; Absent tenderness *Routine Rectal Exam Patient deferred: visual exam *Routine Exam Patient deferred: penile exam *Routine Extremities Exam Extremities: Present edema (Left lower extremity, 2+ to knee.); Absent cyanosis or clubbing Comments: Surgical incision clean dry and intact. No active bleeding. *Routine Skin Exam Skin: Present warm; Absent rash *Routine Neurological Exam Neurological: Present alert, oriented X3 and moving all extremities; Absent altered mental status Results Data Completed and Pending Labs on day of discharge: Labs from last 24 hours 11/06/23 11/06/23 11/05/23 06:18 05:48 20:21 WBC 6.8 RBC 3.21 L Hgb 10.2 L Hct 31.0 L MCV 96.8 H MCH 31.9 H MCHC 33.0 RDW 14.5 Plt Count 346 MPV 8.6 Neut % (Auto) 71.5 Lymph % (Auto) 18.9 [place] % (Auto) 9.1 Eos % (Auto) 0.4 Baso % (Auto) 0.1 Neut # (Auto) 4.9 Lymph # (Auto) 1.3 [place] # (Auto) 0.6 Eos # (Auto) 0.0 Baso # (Auto) 0.0 Sodium 131 L Potassium 3.7 Chloride 97 L Carbon Dioxide 29 Anion Gap 8.7 BUN 20 Creatinine 1.10 Estimated Creat Clear 99 Estimated GFR 67 Est GFR ( Amer) 81 Glucose 206 H POC Glucose 232 H 257 H Hemoglobin A1c Calcium 8.8 Magnesium 1.6 Total Bilirubin 0.8 AST 33 ALT 21 Alkaline Phosphatase 54 NT-Pro-B Natriuret Pep Total Protein 5.5 L Albumin 3.0 L Globulin 2.5 Albumin/Globulin Ratio 1.2 TSH 11/05/23 11/05/23 19:30 09:46 WBC 7.9 RBC 3.39 L Hgb 11.0 L Hct 33.8 L MCV 99.5 H MCH 32.4 H MCHC 32.5 RDW 14.1 Plt Count 335 MPV 8.5 Neut % (Auto) 74.7 Lymph % (Auto) 16.0 [place] % (Auto) 8.6 Eos % (Auto) 0.5 Baso % (Auto) 0.2 Neut # (Auto) 5.9 Lymph # (Auto) 1.3 [place] # (Auto) 0.7 Eos # (Auto) 0.0 Baso # (Auto) 0.0 Sodium 129 L Potassium 3.7 Chloride 97 L Carbon Dioxide 28 Anion Gap 7.7 BUN 21 H Creatinine 1.00 Estimated Creat Clear 109 Estimated GFR 75 Est GFR ( Amer) 90 Glucose 248 H POC Glucose Hemoglobin A1c 5.7 Calcium 8.8 Magnesium Total Bilirubin AST ALT Alkaline Phosphatase NT-Pro-B Natriuret Pep 577 H Total Protein Albumin Globulin Albumin/Globulin Ratio TSH 0.52 DS: Diagnosis Discharge Diagnosis (1) Difficulty walking: Status: Acute Code(s): R26.2 - Difficulty in walking, not elsewhere classified (2) Knee pain, left: Status: Acute Code(s): M25.562 - Pain in left knee (3) Obesity: Status: Chronic Code(s): E66.9 - Obesity, unspecified (4) Hypertensive heart disease: Status: Chronic Code(s): I11.9 - Hypertensive heart disease without heart failure Qualifiers: Heart failure presence: without heart failure Qualified Code(s): I11.9 - Hypertensive heart disease without heart failure (5) Hyperlipidemia: Status: Chronic Code(s): E78.5 - Hyperlipidemia, unspecified Qualifiers: Hyperlipidemia type: mixed hyperlipidemia Qualified Code(s): E78.2 - Mixed hyperlipidemia (6) Lower leg edema: Status: Acute Code(s): R60.0 - Localized edema (7) Type 2 diabetes mellitus with diabetic neuropathy, with long-term current use of insulin: Status: Chronic Code(s): E11.40 - Type 2 diabetes mellitus with diabetic neuropathy, unspecified; Z79.4 - group home (current) use of insulin Meds Home Medications and Allergies Home Medications Medication Instructions Recorded Confirmed Type allopurinol 100 mg tablet 100 mg PO BID 11/05/23 11/05/23 History aspirin 81 mg tablet,delayed 81 mg PO DAILY 11/05/23 11/05/23 History release atorvastatin 80 mg tablet 80 mg PO HS 11/05/23 11/05/23 History bisoprolol fumarate 5 mg tablet 5 mg PO DAILY 11/05/23 11/05/23 History bupropion HCl 300 mg 24 hr tablet, 300 mg PO DAILY 11/05/23 11/05/23 History extended release (Wellbutrin XL) fenofibrate micronized 134 mg 134 mg PO DAILY 11/05/23 11/05/23 History capsule furosemide 40 mg tablet 40 mg PO DAILY 11/05/23 11/05/23 History gabapentin 600 mg tablet 600 mg PO QID 11/05/23 11/05/23 History isosorbide mononitrate 30 mg 30 mg PO DAILY 11/05/23 11/05/23 History tablet,extended release 24 hr metoclopramide HCl 10 mg tablet 10 mg PO ACHS 11/05/23 11/06/23 History omeprazole 40 mg capsule,delayed 40 mg PO DAILY 11/05/23 11/05/23 History release ranolazine 500 mg tablet,extended 500 mg PO BID 11/05/23 11/05/23 History release,12 hr spironolactone 50 mg tablet 50 mg PO DAILY 11/05/23 11/05/23 History trazodone 50 mg tablet 100 mg PO HS 11/05/23 11/06/23 History fluticasone fur. 100 mcg-umeclid 1 ea inhalation DAILY 11/06/23 11/06/23 History 62.5 mcg-vilant 25 mcg inhalat.powder (Trelegy Ellipta) hydrocodone 10 mg-acetaminophen 1 tab PO TIDP PRN Breakthrough 11/06/23 Rx 325 mg tablet Pain 3 days #9 tabs tamsulosin 0.4 mg capsule 0.4 mg PO HS 11/06/23 11/06/23 History New Prescriptions to Start Prescriptions: hydrocodone-acetaminophen Lj Mcdonnell Allergies Allergy/AdvReac Type Severity Reaction Status Date / Time Sulfa (Sulfonamide Allergy Mild Rash Verified 11/06/23 07:28 Antibiotics) Discharge Plan Disposition Patient Disposition: [facility] Condition: Good Discharge Order Discharge Orders: Discharge Order (Routine); Ordered 11/06/23 Ordered By: Lj Mcdonnell Follow up Plan Prescriptions/Medication Reconciliation: Continued fenofibrate micronized 134 mg Capsule 134 mg PO DAILY ranolazine 500 mg Tablet Extended Release 12 Hr 500 mg PO BID furosemide 40 mg Tablet 40 mg PO DAILY gabapentin 600 mg Tablet 600 mg PO QID trazodone 50 mg Tablet 100 mg PO HS isosorbide mononitrate 30 mg Tablet Extended Release 24 Hr 30 mg PO DAILY allopurinol 100 mg Tablet 100 mg PO BID aspirin 81 mg Tablet,Delayed Release (Dr/Ec) 81 mg PO DAILY atorvastatin 80 mg Tablet 80 mg PO HS omeprazole 40 mg Capsule,Delayed Release(Dr/Ec) 40 mg PO DAILY bisoprolol fumarate 5 mg Tablet 5 mg PO DAILY spironolactone 50 mg Tablet 50 mg PO DAILY metoclopramide HCl 10 mg Tablet 10 mg PO ACHS bupropion HCl [Wellbutrin XL] 300 mg Tablet Extended Release 24 Hr 300 mg PO DAILY tamsulosin 0.4 mg capsule 0.4 mg PO HS Trelegy Ellipta 100-62.5-25 mcg blister with device 1 ea INHALATION DAILY hydrocodone-acetaminophen 10-325 mg Tablet 1 tab PO TIDP PRN (Reason: Breakthrough Pain) 3 Days Qty: 9 0RF Problem Reconciliation Problems Reviewed?: Yes Patient Discharge Instructions ACTIVITY: Continue current activity DIET: continue same diet Patient Instructions: How to Prevent Falls, DI for Muscle Weakness Providers Primary Care Provider: Corine Gaines Admit Provider: Lj Mcdonnell Attending Provider: Lj Mcdonnell
--- NOTE | 2023-11-06 11:33 | HMH.PTEV ---
Physical Therapy Evaluation Rehab PT IP Evaluation Start: 11/05/23 14:03 Freq: ONCE Status: Complete Protocol: Document 11/05/23 15:52 PHORNE (Rec: 11/05/23 15:58 PHORNE Laptop) Subjective/History History History 68 yowm who presented to the ED after a fall at home while walking with his RW. He had L TKA performed 3 days ago and has been home since that time. He has PMH of CHF, anxiety, HLD, HTN, DM, CHAIM, CKD. He reports he lives alone, but had a friend helping him since surgery. X-ray was negative for constanza-prosthetic fx. Subjective Subjective Currently he reports pain in his L LE. He does agree to mobility assessment. New diagnosis of cancer in past 12 No months? Rehab PT IP Eval Objective Appearance Patient Behavior Appropriate Patient Orientation Person,Place,Time Difficulty following instructions none Speech Pattern Clear Ambulation Patient Able to Ambulate Yes Ambulation Observation IP General Gait Pattern Observation Antalgic Gait,Wide Based Gait, Shuffling Step Ambulation Distance (feet) 10 Ambulation Assistive Device Rolling Walker Ambulation Ability Minimal x 1 (25% assist) Balance Ability to Arise Able, uses arms to help Sitting Balance Steady, safe Standing Balance Unsteady Dynamic Sitting Balance Ability Good Dynamic Standing Balance Ability Poor Transfers Sit to Stand Bed Transfer Ability Minimal x 2 (25% assist) Rehab PT IP prob,goals,plan Problems Date of Evaluation: 11/05/23 Discharge Plan PT Discharge Plan Pt is currently most appropriate for rehab placement once medically stable. If he returns home without assistance, he will be at significantly increased risk for further falls, injury , or wounds. Eval Complexity Eval Charge Codes 47976 - High Complexity Rehab PT IP Evaluation Start: 11/06/23 09:50 Freq: ONCE Status: Active Protocol: Document 11/06/23 11:30 PHORNE (Rec: 11/06/23 11:33 PHORNE Laptop) Subjective/History History History 68 yowm who presented to the ED after a fall at home while walking with his RW. He had L TKA performed 3 days ago and has been home since that time. He has PMH of CHF, anxiety, HLD, HTN, DM, CHAIM, CKD. He reports he lives alone, but had a friend helping him since surgery. X-ray was negative for constanza-prosthetic fx. Subjective Subjective This am pt reports less pain in the L LE. He agrees to OOB mobility assessment. New diagnosis of cancer in past 12 No months? Rehab PT IP Eval Objective Appearance Patient Behavior Appropriate Patient Orientation Person,Place,Time Difficulty following instructions none Speech Pattern Clear Ambulation Patient Able to Ambulate Yes Ambulation Observation IP General Gait Pattern Observation Antalgic Gait,Shuffling Step Ambulation Distance (feet) 10 Ambulation Assistive Device Rolling Walker Ambulation Ability Minimal x 1 (25% assist) Balance Ability to Arise Able, uses arms to help Sitting Balance Steady, safe Standing Balance Steady, wide stance Dynamic Sitting Balance Ability Good Dynamic Standing Balance Ability Poor Transfers Bed Transfer Ability Minimal x 1 (25% assist) Chair Transfer Ability Minimal x 1 (25% assist) Sit to Stand Bed Transfer Ability Minimal x 1 (25% assist) Sit to Stand Chair Transfer Ability Minimal x 1 (25% assist) Rehab PT IP prob,goals,plan Problems Date of Evaluation: 11/06/23 PT IP Problems Bed Mobility,Transfers,Gait, Self care Rehab Potential Rehab Potential Good Plan PT Intervention Plan Bed Mobility,Transfers,Gait, Self care,Therapeutic Exercise PT Plan Frequency BID Duration LOS Discharge Goals Bed Transfer Ability Contact Guard/Hand Hold Sit to Stand Chair Transfer Ability Contact Guard/Hand Hold Ambulation Assistive Device Rolling Walker Ambulation Distance (feet) 25 Discharge Plan PT Discharge Plan Pt is currently most appropriate for rehab placement once medically stable for d/c. Skilled therapy is necessary to assist pt in return to prior level of function. Eval Complexity Eval Charge Codes 73088 - High Complexity PHYSICIAN CERTIFICATION: I certify the specified therapy services for Hakeem Cat are required, authorized, and reviewed every 30 days.
[2023-11-06 12:06] LABS: POC Glucose,Bedside 264 (70-110)
[2023-11-06 16:00] VITALS: BP 148/82; PULSE 77; RESP 17; TEMP 36.3; O2SAT 97
[2023-11-06 17:03] LABS: POC Glucose,Bedside 123 (70-110)
--- NOTE | 2023-11-06 18:07 | PC.NURSE ---
Patient to be discharged, waiting on ems to transfer
== END 2023-11-06 18:00 ==
LOC: ER 15:00 → 2ND 15:56
PROVIDERS: Admitting Provider Internal Medicine Adolescent Medicine; Emergency Provider Emergency Medicine; PCP Nurse Practitioner Family; Visit Provider Internal Medicine Adolescent Medicine
DX: R26.81 Unsteadiness on feet (principal); M25.562 Pain in left knee; W18.30XA Fall on same level, unspecified, initial encounter; Z96.652 Presence of left artificial knee joint; Z91.81 History of falling; Y92.019 Unspecified place in single-family (private) house as the place of occurrence of the external cause; R29.6 Repeated falls; I13.0 Hypertensive heart and chronic kidney disease with heart failure and stage 1 through stage 4 chronic kidney disease, or unspecified chronic kidney disease; E78.2 Mixed hyperlipidemia; R60.0 Localized edema; E11.40 Type 2 diabetes mellitus with diabetic neuropathy, unspecified; Z68.35 Body mass index [BMI] 35.0-35.9, adult; E66.9 Obesity, unspecified; Z79.4 Long term (current) use of insulin; Z79.899 Other long term (current) drug therapy; I50.9 Heart failure, unspecified; N18.9 Chronic kidney disease, unspecified; E11.22 Type 2 diabetes mellitus with diabetic chronic kidney disease
CPT/HCPCS: 36415; 73502; 73552; 73560; 73590; 80048; 80053; 82962; 83036; 83735; 83880; 84443; 85025; 97110; 97163; 97530; 99285; G0378

== ENCOUNTER 2024-01-22 09:00 | Outpatient (RCR) | payer MEDICARE, MEDICAID, SELFPAY | END 2024-01-22 09:05 | disposition home or self-care (01) | LOC: PT 09:00 | PROVIDERS: Visit Provider Nurse Practitioner Family | DX: M25.562 Pain in left knee (principal) | CPT/HCPCS: 97010; 97016; 97110; 97140; 97163; 97164 ==

== ENCOUNTER → 2024-02-15 14:46 | Outpatient (CLI) | payer MEDICARE, MEDICAID, SELFPAY | LOC: SL 14:47 | PROVIDERS: PCP Nurse Practitioner Family; Visit Provider Specialist | DX: G47.33 Obstructive sleep apnea (adult) (pediatric) (principal); G47.36 Sleep related hypoventilation in conditions classified elsewhere | CPT/HCPCS: G0399 ==

== ENCOUNTER 2024-07-14 13:28 | Emergency (ER) | payer MEDICARE, MEDICAID, SELFPAY ==
[2024-07-14 13:31] VITALS: BP 141/59; PULSE 96; RESP 18; TEMP 36.6; O2SAT 99; BMI 31.7
--- NOTE | 2024-07-14 13:33 | XR_ITS ---
FINAL REPORT CLINICAL HISTORY: ankle injury COMPARISON: None FINDINGS: Two views of the right ankle were obtained. There is no acute fracture or dislocation. There are mild degenerative changes. There is no widening of the ankle mortise. Mild calcaneal spurring is noted. There is no acute soft tissue abnormality. IMPRESSION: Degenerative changes without acute findings. Reviewed, Interpreted and Dictated by Hong Ray MD Transcribed by Lilia Farias Authenticated and [facility]
--- NOTE | 2024-07-14 13:33 | XR_ITS ---
FINAL REPORT CLINICAL HISTORY: ankle injury FINDINGS: There is no acute fracture or dislocation. The joint spaces are intact. There is no soft tissue abnormality. IMPRESSION: No acute fracture Reviewed, Interpreted and Dictated by Hong Ray MD Transcribed by Lore Hart Authenticated and [facility]
--- NOTE | 2024-07-14 13:33 | XR_ITS ---
FINAL REPORT CLINICAL HISTORY: ankle injury FINDINGS: The is no acute fracture. There is widening of the navicular cuneiform joint which may be posttraumatic subluxation or chronic degenerative change. There are advanced degenerative changes of the midfoot. There is no soft tissue abnormality. IMPRESSION: Abnormality of the navicular cuneiform which could simply be advanced degenerative changes although posttraumatic subluxation is not excluded. Reviewed, Interpreted and Dictated by Hong Ray MD Transcribed by Lore Hart Authenticated and [facility]
--- NOTE | 2024-07-14 13:34 | HMH.EDGENADL ---
Discharge Plan Disposition Patient Disposition: Home, Self-Care Prescriptions Prescriptions: No Action trazodone 50 mg tablet 125 mg PO HS Qty: 75 5RF (DME) blood pressure monitor [Blood Pressure Kit] Kit See Rx Instructions .Route Qty: 1 0RF Rx Instructions: As directed ranolazine 500 mg tablet extended release 12 hr See Rx Instructions .ROUTE .COMPLEX Qty: 180 1RF Dose Instruction: TAKE ONE TABLET BY MOUTH 2 TIMES A DAY FOR ANGINA Rx Instructions: TAKE ONE TABLET BY MOUTH 2 TIMES A DAY FOR ANGINA aspirin 81 mg tablet,delayed release (DR/EC) 81 mg PO DAILY Qty: 90 1RF fenofibrate micronized 134 mg Capsule 134 mg PO DAILY furosemide 40 mg Tablet 40 mg PO DAILY gabapentin 600 mg Tablet 600 mg PO QID isosorbide mononitrate 30 mg Tablet Extended Release 24 Hr 30 mg PO DAILY allopurinol 100 mg Tablet 100 mg PO BID atorvastatin 80 mg Tablet 80 mg PO HS omeprazole 40 mg Capsule,Delayed Release(Dr/Ec) 40 mg PO DAILY bisoprolol fumarate 5 mg Tablet 5 mg PO DAILY spironolactone 50 mg Tablet 50 mg PO DAILY metoclopramide HCl 10 mg Tablet 10 mg PO ACHS bupropion HCl [Wellbutrin XL] 300 mg Tablet Extended Release 24 Hr 300 mg PO DAILY tamsulosin 0.4 mg capsule 0.4 mg PO HS Trelegy Ellipta 100-62.5-25 mcg blister with device 1 ea INHALATION DAILY hydrocodone-acetaminophen 10-325 mg Tablet 1 tab PO TIDP PRN (Reason: Breakthrough Pain) 3 Days Qty: 9 0RF Referrals Follow up/Referrals: Provider,Referral, MD [Referring] - See instructions Activity Restrictions/Add. Instructions Additional Instructions/Restrictions: Take Tylenol as needed for pain. Follow-up with primary care doctor. Please return the emerged part with any new, concerning, worsening symptoms. Clinical Impressions Clinical Impression: Fall Qualifiers: Encounter type: initial encounter Qualified Code(s): W19.XXXA - Unspecified fall, initial encounter Acute ankle pain Qualifiers: Laterality: right Qualified Code(s): M25.571 - Pain in right ankle and joints of right foot Print Language Print Language: Amharic Discharge ED Provider: Gage Brown [facility] General Chief complaint: Fall Stated complaint: right leg pain/ Fall thursday Time Seen by Provider: 07/14/24 13:29 Mode of Arrival: EMS Source of Information: Patient Limitations: No Limitations History of Present Illness HPI narrative: This is a 69-year-old male with a history of CHF, hypertension, hyperlipidemia, diabetes who presents with right ankle injury 5 days ago. States that he slipped on ice. Injured his right ankle, however has been worsening since then. Has been ambulatory with his walker. Denies hitting his head or loss of consciousness. Related Data Home Medications ?Medication ?Instructions ?Recorded ?Confirmed allopurinol 100 mg tablet 100 mg PO BID 11/05/23 07/11/24 atorvastatin 80 mg tablet 80 mg PO HS 11/05/23 07/11/24 bisoprolol fumarate 5 mg tablet 5 mg PO DAILY 11/05/23 07/11/24 bupropion HCl 300 mg 24 hr tablet, 300 mg PO DAILY 11/05/23 07/11/24 extended release (Wellbutrin XL) fenofibrate micronized 134 mg 134 mg PO DAILY 11/05/23 07/11/24 capsule furosemide 40 mg tablet 40 mg PO DAILY 11/05/23 07/11/24 gabapentin 600 mg tablet 600 mg PO QID 11/05/23 07/11/24 isosorbide mononitrate 30 mg 30 mg PO DAILY 11/05/23 07/11/24 tablet,extended release 24 hr metoclopramide HCl 10 mg tablet 10 mg PO ACHS 11/05/23 07/11/24 omeprazole 40 mg capsule,delayed 40 mg PO DAILY 11/05/23 07/11/24 release spironolactone 50 mg tablet 50 mg PO DAILY 11/05/23 07/11/24 fluticasone fur. 100 mcg-umeclid 1 ea inhalation DAILY 11/06/23 07/11/24 62.5 mcg-vilant 25 mcg inhalat.powder (Trelegy Ellipta) tamsulosin 0.4 mg capsule 0.4 mg PO HS 11/06/23 07/11/24 Previous Rx's ?Medication ?Instructions ?Recorded hydrocodone 10 mg-acetaminophen 1 tab PO TIDP PRN Breakthrough 11/06/23 325 mg tablet Pain 3 days #9 tabs ranolazine 500 mg tablet,extended See Rx Instructions .Route 04/13/24 release,12 hr .COMPLEX #180 tabs blood pressure monitor (Blood #1 ea 04/20/24 Pressure Kit) aspirin 81 mg tablet,delayed 81 mg PO DAILY #90 tabs 05/13/24 release trazodone 50 mg tablet 125 mg (2.5 x 50 mg) PO HS #75 tabs 07/11/24 Allergies Allergy/AdvReac Type Severity Reaction Status Date / Time Sulfa (Sulfonamide Allergy Mild Rash Verified 07/11/24 10:26 Antibiotics) [facility] Disclaimer: The information contained in this section may have been updated after the patient was seen, as this information can be updated by other users. Medical History Obstructive sleep apnea syndrome Body mass index (BMI) of 40.1 to 44.9 in adult Sacroiliitis History of CHF (congestive heart failure) History of anxiety History of hyperlipidemia History of hypertension History of diabetes mellitus Surgical History Hx of left knee surgery History of colonoscopy S/P cholecystectomy S/P hip replacement Family History Other Coronary artery disease Diabetes Heart attack Social History Smoking Status: Former smoker tobacco type: cigarettes second hand exposure: No alcohol intake: never counseling provided: none substance use type: denies use current occupational status: unemployed and retired Travel in the last 8 weeks: Inside the [place] household members: significant other housing: other current occupation: RETIRED current occupational exposures/hazards: No caffeine: No Have you lived/traveled outside [place] in past 30 days?: No Contact w/someone who lives/traveled outside [place] past 30 days?: No Exposure to someone with infectious disease in past 14 days?: No Do you have a fever (greater than 100.4 F or 38 C)?: No Have you tested positive for COVID-19: No Exposed to someone with COVID-19 in past 14 days?: No Do you have a sore throat?: No Do you have a cough?: No Do you have any weakness?: No Do you have any diarrhea?: No Are you experiencing any unusual bleeding?: No Do you have any muscle aches/pain?: No Do you have any abdominal pain?: No Are you experiencing loss of taste or smell?: No Other Medical History Have you received the Flu Vaccine for this season: No Have you received the Pneumonia Vaccine: No ROS Obtained: Yes All systems reviewed & no additional complaints except as documented Physical Exam General General appearance: alert and in no apparent distress Eye Eye exam: Present normal appearance, PERRL and EOMI Respiratory Respiratory exam: Present normal lung sounds bilaterally; Absent respiratory distress Cardiovascular Cardiovascular exam: Present regular rate and normal rhythm Abdominal Exam Abdominal exam: Present soft and distention; Absent tenderness, guarding or rebound Extremities Exam Extremities exam: Present normal inspection Expanded Lower Extremity Exam Right: Comment: Tenderness to R lateral malleolus. Neurovascular intact distally. No deformity. Neurological Exam Neurological exam: Present alert and oriented X3 Skin Skin exam: Present warm and dry Medical Decision Making Medical Records Medical records reviewed: Yes I reviewed the patient's medical records. Screening: Per USPSTF and CDC recommendations, given the prevalence of disease in our region, it is our hospital?s policy to screen for HIV and viral Hepatitis for all patients aged 18 and over and those with ongoing risk factors. [place] Inquiry Pt receiving controlled substance: No Vital Signs: 07/14/24 13:31 07/14/24 14:00 07/14/24 14:30 Temperature 97.8 F Temperature Source Oral Pulse Rate 93 H 98 H Pulse Rate [Left] 96 H Respiratory Rate 18 Blood Pressure 141/80 H 142/85 H Blood Pressure [Right Arm] 141/59 H Blood Pressure Mean [Right Arm] 86 Blood Pressure Source [Right Arm] Automatic Cuff Blood Pressure Position [Right Arm] Sitting 02 Sat by Pulse Oximetry 99 95 97 Oxygen Delivery Method Room Air Room Air Room Air 07/14/24 15:00 07/14/24 15:31 Temperature Temperature Source Pulse Rate 90 91 H Pulse Rate [Left] Respiratory Rate Blood Pressure 145/85 H 126/80 Blood Pressure [Right Arm] Blood Pressure Mean [Right Arm] Blood Pressure Source [Right Arm] Blood Pressure Position [Right Arm] 02 Sat by Pulse Oximetry 96 96 Oxygen Delivery Method Room Air Room Air Orders (Tests/Meds): ED MEDICATIONS Discontinued Medications Generic Name Dose Route Start Last Admin Trade Name Freq PRN Reason Stop Dose Admin Acetaminophen 1,000 mg 07/14/24 13:33 07/14/24 13:53 Acetaminophen 500mg Tab PO 07/14/24 13:34 1,000 mg ONCE ONE Administration ORDERS Category Date Time Status Femur XR right 2 views [XR femur RT 2V] Stat Exams 07/14/24 14:24 Completed Fibula/tibia XR right 2 views [XR tibia fibula RT 2V] Exams 07/14/24 13:33 Completed Stat XR ankle RT 2V Stat Exams 07/14/24 13:33 Completed XR foot RT 2V Stat Exams 07/14/24 13:33 Completed XR hip RT 2-3V w/pelvis Stat Exams 07/14/24 14:24 Completed Medical Decision Narrative: In summary, this 69-year-old male with a past medical history of CHF, diabetes, hypertension, hyperlipidemia presents to the emergency department today with right ankle pain after a fall 5 days ago. On initial evaluation patient is afebrile, nontoxic-appearing. Differential diagnosis includes but is not limited to sprain, fracture, dislocation. Based on these concerns, I ordered x-ray imaging of the right foot, ankle, tib-fib, right hip, pelvis, femur. Patient received Tylenol for treatment. XR personally interpreted demonstrates no acute fractures or dislocations. Radiology report noted possible navicular injury versus degenerative changes. Patient is nontender over this area. Favor degenerative. On reassessment in stable condition and in no acute distress. Already ambulatory with walker which was his baseline. Appropriate for discharge at this time. Critical Care Critical Care Time Critical Care Time: No
--- NOTE | 2024-07-14 13:51 | PC.NURSE ---
portable rad at BS
[2024-07-14] MEDS: ACETAMINOPHEN 500MG TAB 1000 MG PO (13:53)
[2024-07-14 14:00] VITALS: BP 141/80; PULSE 93; O2SAT 95
--- NOTE | 2024-07-14 14:24 | XR_ITS ---
FINAL REPORT CLINICAL HISTORY: hip pain FINDINGS: Pelvis/right hip Four views were obtained. There is no fracture or dislocation. There are postoperative changes from bilateral hip arthroplasties. Dystrophic calcifications are seen in the right pelvis soft tissues. Wire fragment is seen projecting in the right lower inguinal region. IMPRESSION: Postsurgical changes without acute process. Reviewed, Interpreted and Dictated by Hong Ray MD Transcribed by Lore Hart Authenticated and [facility]
--- NOTE | 2024-07-14 14:24 | XR_ITS ---
FINAL REPORT CLINICAL HISTORY: hip pain FINDINGS: Right femur Two views were obtained. There is no fracture or dislocation. There are postoperative changes from hip arthroplasty. Intramedullary patrick with cerclage wires are identified. There is no obvious bony destruction. The bones are osteopenic. IMPRESSION: Postsurgical changes without acute process. Reviewed, Interpreted and Dictated by Hong Ray MD Transcribed by Lore Hart Authenticated and [facility]
[2024-07-14 14:30] VITALS: BP 142/85; PULSE 98; O2SAT 97
--- NOTE | 2024-07-14 14:40 | PC.NURSE ---
XR AT BEDSIDE
[2024-07-14 15:00] VITALS: BP 145/85; PULSE 90; O2SAT 96
[2024-07-14 15:31] VITALS: BP 126/80; PULSE 91; O2SAT 96
[2024-07-14 15:47] VITALS: BP 126/80; PULSE 92; RESP 20; TEMP 37.1; O2SAT 96
--- NOTE | 2024-07-14 15:53 | PC.NURSE ---
pt is attempting to reach someone to pick him up.
== END 2024-07-14 16:14 | disposition home or self-care (01) ==
PROVIDERS: Emergency Provider Student in an Organized Health Care Education/Training Program; PCP Nurse Practitioner Family
DX: M25.571 Pain in right ankle and joints of right foot (principal); W00.0XXA Fall on same level due to ice and snow, initial encounter; Y93.89 Activity, other specified; Y92.9 Unspecified place or not applicable
CPT/HCPCS: 73502; 73552; 73590; 73600; 73620; 99283

== ENCOUNTER 2024-07-21 14:19 | Emergency (ER) | payer MEDICARE, MEDICAID, SELFPAY ==
[2024-07-21] VITALS (9 sets, daily range): BP systolic 124–153; BP diastolic 77–101; PULSE 108–125; RESP 18–22; TEMP 37–37.2; O2SAT 96–99; BMI 31.0
--- NOTE | 2024-07-21 14:21 | HMH.EDGENADL ---
Discharge Plan Disposition Patient Disposition: Xfer Short-Term Hosp Condition: Serious Prescriptions Prescriptions: No Action trazodone 50 mg tablet 125 mg PO HS Qty: 75 5RF (DME) blood pressure monitor [Blood Pressure Kit] Kit See Rx Instructions .Route Qty: 1 0RF Rx Instructions: As directed ranolazine 500 mg tablet extended release 12 hr See Rx Instructions .ROUTE .COMPLEX Qty: 180 1RF Dose Instruction: TAKE ONE TABLET BY MOUTH 2 TIMES A DAY FOR ANGINA Rx Instructions: TAKE ONE TABLET BY MOUTH 2 TIMES A DAY FOR ANGINA aspirin 81 mg tablet,delayed release (DR/EC) 81 mg PO DAILY Qty: 90 1RF fenofibrate micronized 134 mg Capsule 134 mg PO DAILY furosemide 40 mg Tablet 40 mg PO DAILY gabapentin 600 mg Tablet 600 mg PO QID isosorbide mononitrate 30 mg Tablet Extended Release 24 Hr 30 mg PO DAILY allopurinol 100 mg Tablet 100 mg PO BID atorvastatin 80 mg Tablet 80 mg PO HS omeprazole 40 mg Capsule,Delayed Release(Dr/Ec) 40 mg PO DAILY bisoprolol fumarate 5 mg Tablet 5 mg PO DAILY spironolactone 50 mg Tablet 50 mg PO DAILY metoclopramide HCl 10 mg Tablet 10 mg PO ACHS bupropion HCl [Wellbutrin XL] 300 mg Tablet Extended Release 24 Hr 300 mg PO DAILY tamsulosin 0.4 mg capsule 0.4 mg PO HS Trelegy Ellipta 100-62.5-25 mcg blister with device 1 ea INHALATION DAILY hydrocodone-acetaminophen 10-325 mg Tablet 1 tab PO TIDP PRN (Reason: Breakthrough Pain) 3 Days Qty: 9 0RF Referrals Follow up/Referrals: Corine Gaines [Primary Care Provider] - See instructions Activity Restrictions/Add. Instructions Additional Instructions/Restrictions: To [facility] care of Dr. Palomino Clinical Impressions Clinical Impression: Encephalopathy acute Stand Alone Forms Stand Alone Forms: Transfer Record - ED Print Language Print Language: Upper Sorbian Discharge ED Provider: Malachi Staton General Adult HPI <CHRISTINE Andujar - Last Filed: 07/21/24 22:02> General Chief complaint: Weakness Stated complaint: WEAKNESS Time Seen by Provider: 07/21/24 14:21 History of Present Illness HPI narrative: Mr. Cat is a 69-year-old male presents to the emergency department initially with a chief complaint of weakness. Patient himself is actually not oriented to place or circumstance but is oriented to self. It is unknown his last known well. Apparently patient was have a conversation on the phone with his family and they noted him to be confused and called police for a welfare check as they live a great distance away. Possible last known well was 3 days ago. Patient currently thinks that is the year 2019 and that President Jay is the current president. He denies any chest pain fever chills hemoptysis hematochezia melena nausea vomit diarrhea. Short time after VAZQUEZ was started patient's family arrived and states that he has been out of his gabapentin for almost a week. He takes 1800 mg a day. He is unable to drive and relies on family members to supply his medication however they were unable to get here due to the weather thus the reason for it being delayed. This apparently has happened before when has been out of gabapentin but is unsure. Related Data Home Medications ?Medication ?Instructions ?Recorded ?Confirmed allopurinol 100 mg tablet 100 mg PO BID 11/05/23 07/11/24 atorvastatin 80 mg tablet 80 mg PO HS 11/05/23 07/11/24 bisoprolol fumarate 5 mg tablet 5 mg PO DAILY 11/05/23 07/11/24 bupropion HCl 300 mg 24 hr tablet, 300 mg PO DAILY 11/05/23 07/11/24 extended release (Wellbutrin XL) fenofibrate micronized 134 mg 134 mg PO DAILY 11/05/23 07/11/24 capsule furosemide 40 mg tablet 40 mg PO DAILY 11/05/23 07/11/24 gabapentin 600 mg tablet 600 mg PO QID 11/05/23 07/11/24 isosorbide mononitrate 30 mg 30 mg PO DAILY 11/05/23 07/11/24 tablet,extended release 24 hr metoclopramide HCl 10 mg tablet 10 mg PO ACHS 11/05/23 07/11/24 omeprazole 40 mg capsule,delayed 40 mg PO DAILY 11/05/23 07/11/24 release spironolactone 50 mg tablet 50 mg PO DAILY 11/05/23 07/11/24 fluticasone fur. 100 mcg-umeclid 1 ea inhalation DAILY 11/06/23 07/11/24 62.5 mcg-vilant 25 mcg inhalat.powder (Trelegy Ellipta) tamsulosin 0.4 mg capsule 0.4 mg PO HS 11/06/23 07/11/24 Previous Rx's ?Medication ?Instructions ?Recorded hydrocodone 10 mg-acetaminophen 1 tab PO TIDP PRN Breakthrough 11/06/23 325 mg tablet Pain 3 days #9 tabs ranolazine 500 mg tablet,extended See Rx Instructions .Route 04/13/24 release,12 hr .COMPLEX #180 tabs blood pressure monitor (Blood #1 ea 04/20/24 Pressure Kit) aspirin 81 mg tablet,delayed 81 mg PO DAILY #90 tabs 05/13/24 release trazodone 50 mg tablet 125 mg (2.5 x 50 mg) PO HS #75 tabs 07/11/24 Allergies Allergy/AdvReac Type Severity Reaction Status Date / Time Sulfa (Sulfonamide Allergy Mild Rash Verified 07/11/24 10:26 Antibiotics) [facility] <CHRISTINE Andujar - Last Filed: 07/21/24 22:02> [facility] Disclaimer: The information contained in this section may have been updated after the patient was seen, as this information can be updated by other users. Medical History Obstructive sleep apnea syndrome Body mass index (BMI) of 40.1 to 44.9 in adult Sacroiliitis History of CHF (congestive heart failure) History of anxiety History of hyperlipidemia History of hypertension History of diabetes mellitus Surgical History Hx of left knee surgery History of colonoscopy S/P cholecystectomy S/P hip replacement Family History Other Coronary artery disease Diabetes Heart attack Social History Smoking Status: Unknown if ever smoked second hand exposure: No alcohol intake: never counseling provided: none substance use type: denies use current occupational status: unemployed and retired Travel in the last 8 weeks: Inside the [place] household members: significant other housing: other current occupation: RETIRED current occupational exposures/hazards: No caffeine: No Have you lived/traveled outside [place] in past 30 days?: No Contact w/someone who lives/traveled outside US past 30 days?: No Exposure to someone with infectious disease in past 14 days?: No Do you have a fever (greater than 100.4 F or 38 C)?: No Have you tested positive for COVID-19: No Exposed to someone with COVID-19 in past 14 days?: No Do you have a sore throat?: No Do you have a cough?: No Do you have any weakness?: Yes Do you have any diarrhea?: No Are you experiencing any unusual bleeding?: No Do you have any muscle aches/pain?: No Do you have any abdominal pain?: No Are you experiencing loss of taste or smell?: No Other Medical History Have you received the Flu Vaccine for this season: No Have you received the Pneumonia Vaccine: No <CHRISTINE Andujar - Last Filed: 07/21/24 22:02> ROS Obtained: Yes Systems reviewed as appropriate & no additional complaints except as documented Physical Exam <CHRISTINE Andujar - Last Filed: 07/21/24 22:02> General General appearance: alert Respiratory Respiratory exam: Present normal lung sounds bilaterally Cardiovascular Cardiovascular exam: Present regular rate Neurological Exam Neurological exam: Present alert and oriented X3 Medical Decision Making <CHRISTINE Andujar - Last Filed: 07/21/24 22:02> Medical Records Medical records reviewed: Yes I reviewed the patient's medical records. Screening: Per USPSTF and CDC recommendations, given the prevalence of disease in our region, it is our hospital?s policy to screen for HIV and viral Hepatitis for all patients aged 18 and over and those with ongoing risk factors. [place] Inquiry Pt receiving controlled substance: No Vital Signs: 07/21/24 14:31 07/21/24 14:31 07/21/24 14:47 Temperature 98.6 F Temperature Source Oral Pulse Rate 121 H 123 H Pulse Rate [Right Brachial] 125 H Respiratory Rate 22 Blood Pressure 140/101 H 145/92 H Blood Pressure [Right Arm] 132/92 H Blood Pressure Mean [Right Arm] 105 Blood Pressure Source Blood Pressure Source [Right Arm] Automatic Cuff Blood Pressure Position Blood Pressure Position [Right Arm] Sitting 02 Sat by Pulse Oximetry 98 98 99 Oxygen Delivery Method Room Air Room Air Room Air 07/21/24 15:30 07/21/24 16:30 07/21/24 17:01 Temperature Temperature Source Pulse Rate 111 H 108 H 114 H Pulse Rate [Right Brachial] Respiratory Rate Blood Pressure 140/88 124/90 151/87 H Blood Pressure [Right Arm] Blood Pressure Mean [Right Arm] Blood Pressure Source Blood Pressure Source [Right Arm] Blood Pressure Position Blood Pressure Position [Right Arm] 02 Sat by Pulse Oximetry 98 98 96 Oxygen Delivery Method Room Air Room Air Room Air 07/21/24 17:33 07/21/24 17:42 07/21/24 18:00 Temperature 98.9 F Temperature Source Oral Pulse Rate 117 H 111 H 111 H Pulse Rate [Right Brachial] Respiratory Rate 18 Blood Pressure 153/98 H 153/93 H 143/77 H Blood Pressure [Right Arm] Blood Pressure Mean [Right Arm] Blood Pressure Source Automatic Cuff Blood Pressure Source [Right Arm] Blood Pressure Position Sitting Blood Pressure Position [Right Arm] 02 Sat by Pulse Oximetry 98 97 Oxygen Delivery Method Room Air Room Air Room Air 07/21/24 18:30 Temperature Temperature Source Pulse Rate 113 H Pulse Rate [Right Brachial] Respiratory Rate Blood Pressure 132/92 H Blood Pressure [Right Arm] Blood Pressure Mean [Right Arm] Blood Pressure Source Blood Pressure Source [Right Arm] Blood Pressure Position Blood Pressure Position [Right Arm] 02 Sat by Pulse Oximetry 96 Oxygen Delivery Method Room Air Lab Data Lab results reviewed: Yes I reviewed the patient's lab results. Lab Results 07/21/24 14:26: WBC 13.0 H, RBC 4.95, Hgb 15.9, Hct 46.1, MCV 93.1, MCH 32.1 H, MCHC 34.5, RDW 12.8, Plt Count 355, MPV 10.7 H, Neut % (Auto) 75.7, Lymph % (Auto) 13.9, Carter % (Auto) 9.4 H, Eos % (Auto) 0.2, Baso % (Auto) 0.5, Neut # (Auto) 9.8 H, Lymph # (Auto) 1.8, Carter # (Auto) 1.2 H, Eos # (Auto) 0.0, Baso # (Auto) 0.1, PT 12.4 H, INR 1.15 H, Sodium 142, Potassium 3.9, Chloride 107, Carbon Dioxide 22, Anion Gap 16.9 H, BUN 35 H, Creatinine 1.10, Estimated Creat Clear 87, Estimated GFR 67, Est GFR ( Amer) 81, Glucose 197 H, Calcium 10.5 H, Magnesium 1.7, Total Bilirubin 1.8 H, AST 35, ALT 23, Alkaline Phosphatase 74, Troponin I 0.03, NT-Pro-B Natriuret Pep 550 H, Total Protein 7.2 D, Albumin 4.6, Globulin 2.6, Albumin/Globulin Ratio 1.8, Procalcitonin 0.059 07/21/24 14:39: VBG pH 7.39, VBG pCO2 32.1 L, VBG pO2 155.7 H, VBG HCO3 19.1 L, VBG Total CO2 20.1 L, VBG O2 Saturation 99.6 H, VBG Base Excess -5.8 L, VBG Lactic Acid 2.3 H 07/21/24 17:00: SARS-CoV-2 (PCR) Not detected, Influenza A Untype (PCR) Not detected, Influenza Type B (PCR) Not detected 07/21/24 17:11: Urine Color Yellow, Urine Appearance Slightly cloudy, Urine pH 5.5, Ur Specific Exmore >= 1.030, Urine Protein Trace, Urine Glucose (UA) Negative, Urine Ketones Negative, Urine Blood Trace-i, Urine Nitrate Negative, Urine Bilirubin 2+ A, Urine Urobilinogen 1.0, Ur Leukocyte Esterase Trace, Urine RBC 5-10, Urine WBC 3-5, Ur Transition Epith Cell 3-5, Urine Bacteria Trace, Urine Opiates Screen Negative, Urine Methadone Screen Negative, Ur Barbituates Screen Negative, Ur Phencyclidine Scrn Negative, Ur Amphetamines Screen Negative, U Benzodiazepines Scrn Negative, Urine Cocaine Screen Negative, U Marijuana (THC) Screen Negative 07/21/24 14:26 07/21/24 14:26 Orders (Tests/Meds): ED MEDICATIONS Discontinued Medications Generic Name Dose Route Start Last Admin Trade Name Freq PRN Reason Stop Dose Admin Iopamidol 80 ml 07/21/24 15:19 07/21/24 15:21 Iopamidol-370 (76%);100ml Bottle IV 07/21/24 15:20 80 ml ONCE ONE Administration Sodium Chloride 40 ml 07/21/24 15:19 07/21/24 15:21 0.9 % Sodium Chloride 50 Ml Vial IV 07/21/24 15:20 40 ml ONCE ONE Administration ORDERS Category Date Time Status CT angio head Stat Cat Scan 07/21/24 14:[address] angio neck Stat Cat Scan 07/21/24 14:[address] head/brain wo con Stat Cat Scan 07/21/24 14:37 Completed BNP [NT Pro Brain Natriuretic Pep.] Stat Lab 07/21/24 14:26 Completed CBC w/Auto Diff [Complete Blood Count Auto Diff] Stat Lab 07/21/24 14:26 Completed CMP [Comprehensive Metabolic Panel] Stat Lab 07/21/24 14:26 Completed Drug Screen,Urine Stat Lab 07/21/24 17:11 Completed INR [Prothrombin Time INR] Stat Lab 07/21/24 14:26 Completed Magnesium Stat Lab 07/21/24 14:26 Completed Procalcitonin Stat Lab 07/21/24 14:26 Completed Rapid PCR Covid and Flu A/B Stat Lab 07/21/24 17:00 Completed Trop I [Troponin I] Stat Lab 07/21/24 14:26 Completed UA [Urinalysis and Microscopic] Stat Lab 07/21/24 17:11 Completed Blood Culture Stat Micro 07/21/24 15:38 Received VBG [Venous Blood Gas] Stat RT 07/21/24 14:39 Completed Medical Decision Narrative: In summary patient is a 69-year-old male who presents to the emergency department for evaluation of encephalopathy. Patient is initially with a blood pressure 140/101 tachycardic at 121 breathing 22 times a minute satting at 98% on room air upon arrival, with a temperature of 98.6. Physical exam is remarkable for a pleasantly confused 69-year-old male who is well-nourished well-developed in no acute distress. He is oriented only to person not place or circumstance. He has no focal neurologic deficits but has significant asthenia and his NIH stroke score is 5 primarily due to inability to hold his extremities still due to weakness. Cranial nerves II through XII are intact grossly to exam ProCentra clinical bilaterally to the bases without adventitious sounds. Patient has sinus tachycardia on the bedside monitor. Patient has no dependent edema noted. Patient has no abdominal tenderness on palpation. Differential diagnosis includes stroke versus sepsis versus gabapentin withdrawal versus intoxication etc. Initial workup will be conducted with hematologic labs blood cultures urinalysis urine drug screen VBG respiratory swabs. Initial interventions include gentle hydration for now. Initial workup reviewed by me Shows his white count is 13,000 with a globin hematocrit of 15.9 and 46.1 respectively with an absolute neutrophil count of 9.8 and INR 1.15 cm 10.5 NT proBNP of 550 troponin is 0.03 procalcitonin 0.059 a bland urinalysis and negative urine drug screen negative COVID and flu and my informal interpretation of his CT scan of his head and CTA of his head neck shows no acute processes prior to radiology read. . Upon repeat evaluation remains pleasantly confused despite initial intervention and VAZQUEZ and I do not have a good explanation and there is diagnostic uncertainty whether not this is gabapentin withdrawal versus possible stroke however patient is outside of the intervention window given last known normal approximately 3 days ago. Given this had interactive discussion with the transfer center at [facility] due to family request and discussed patient VAZQUEZ findings and patient management with the Natalie HDEZ and patient has been accepted to [facility] care of Dr. Palomino for further evaluation and care. <Malachi Staton MD - Last Filed: 07/21/24 23:09> Vital Signs: 07/21/24 14:31 07/21/24 14:31 07/21/24 14:47 Temperature 98.6 F Temperature Source Oral Pulse Rate 121 H 123 H Pulse Rate [Right Brachial] 125 H Respiratory Rate 22 Blood Pressure 140/101 H 145/92 H Blood Pressure [Right Arm] 132/92 H Blood Pressure Mean [Right Arm] 105 Blood Pressure Source Blood Pressure Source [Right Arm] Automatic Cuff Blood Pressure Position Blood Pressure Position [Right Arm] Sitting 02 Sat by Pulse Oximetry 98 98 99 Oxygen Delivery Method Room Air Room Air Room Air 07/21/24 15:30 07/21/24 16:30 07/21/24 17:01 Temperature Temperature Source Pulse Rate 111 H 108 H 114 H Pulse Rate [Right Brachial] Respiratory Rate Blood Pressure 140/88 124/90 151/87 H Blood Pressure [Right Arm] Blood Pressure Mean [Right Arm] Blood Pressure Source Blood Pressure Source [Right Arm] Blood Pressure Position Blood Pressure Position [Right Arm] 02 Sat by Pulse Oximetry 98 98 96 Oxygen Delivery Method Room Air Room Air Room Air 07/21/24 17:33 07/21/24 17:42 07/21/24 18:00 Temperature 98.9 F Temperature Source Oral Pulse Rate 117 H 111 H 111 H Pulse Rate [Right Brachial] Respiratory Rate 18 Blood Pressure 153/98 H 153/93 H 143/77 H Blood Pressure [Right Arm] Blood Pressure Mean [Right Arm] Blood Pressure Source Automatic Cuff Blood Pressure Source [Right Arm] Blood Pressure Position Sitting Blood Pressure Position [Right Arm] 02 Sat by Pulse Oximetry 98 97 Oxygen Delivery Method Room Air Room Air Room Air 07/21/24 18:30 Temperature Temperature Source Pulse Rate 113 H Pulse Rate [Right Brachial] Respiratory Rate Blood Pressure 132/92 H Blood Pressure [Right Arm] Blood Pressure Mean [Right Arm] Blood Pressure Source Blood Pressure Source [Right Arm] Blood Pressure Position Blood Pressure Position [Right Arm] 02 Sat by Pulse Oximetry 96 Oxygen Delivery Method Room Air Lab Data Lab Results 07/21/24 14:26: WBC 13.0 H, RBC 4.95, Hgb 15.9, Hct 46.1, MCV 93.1, MCH 32.1 H, MCHC 34.5, RDW 12.8, Plt Count 355, MPV 10.7 H, Neut % (Auto) 75.7, Lymph % (Auto) 13.9, Carter % (Auto) 9.4 H, Eos % (Auto) 0.2, Baso % (Auto) 0.5, Neut # (Auto) 9.8 H, Lymph # (Auto) 1.8, Carter # (Auto) 1.2 H, Eos # (Auto) 0.0, Baso # (Auto) 0.1, PT 12.4 H, INR 1.15 H, Sodium 142, Potassium 3.9, Chloride 107, Carbon Dioxide 22, Anion Gap 16.9 H, BUN 35 H, Creatinine 1.10, Estimated Creat Clear 87, Estimated GFR 67, Est GFR ( Amer) 81, Glucose 197 H, Calcium 10.5 H, Magnesium 1.7, Total Bilirubin 1.8 H, AST 35, ALT 23, Alkaline Phosphatase 74, Troponin I 0.03, NT-Pro-B Natriuret Pep 550 H, Total Protein 7.2 D, Albumin 4.6, Globulin 2.6, Albumin/Globulin Ratio 1.8, Procalcitonin 0.059 07/21/24 14:39: VBG pH 7.39, VBG pCO2 32.1 L, VBG pO2 155.7 H, VBG HCO3 19.1 L, VBG Total CO2 20.1 L, VBG O2 Saturation 99.6 H, VBG Base Excess -5.8 L, VBG Lactic Acid 2.3 H 07/21/24 17:00: SARS-CoV-2 (PCR) Not detected, Influenza A Untype (PCR) Not detected, Influenza Type B (PCR) Not detected 07/21/24 17:11: Urine Color Yellow, Urine Appearance Slightly cloudy, Urine pH 5.5, Ur Specific Exmore >= 1.030, Urine Protein Trace, Urine Glucose (UA) Negative, Urine Ketones Negative, Urine Blood Trace-i, Urine Nitrate Negative, Urine Bilirubin 2+ A, Urine Urobilinogen 1.0, Ur Leukocyte Esterase Trace, Urine RBC 5-10, Urine WBC 3-5, Ur Transition Epith Cell 3-5, Urine Bacteria Trace, Urine Opiates Screen Negative, Urine Methadone Screen Negative, Ur Barbituates Screen Negative, Ur Phencyclidine Scrn Negative, Ur Amphetamines Screen Negative, U Benzodiazepines Scrn Negative, Urine Cocaine Screen Negative, U Marijuana (THC) Screen Negative Orders (Tests/Meds): ED MEDICATIONS Discontinued Medications Generic Name Dose Route Start Last Admin Trade Name Keeley PRN Reason Stop Dose Admin Iopamidol 80 ml 07/21/24 15:19 07/21/24 15:21 Iopamidol-370 (76%);100ml Bottle IV 07/21/24 15:20 80 ml ONCE ONE Administration Sodium Chloride 40 ml 07/21/24 15:19 07/21/24 15:21 0.9 % Sodium Chloride 50 Ml Vial IV 07/21/24 15:20 40 ml ONCE ONE Administration ORDERS Category Date Time Status CT angio head Stat Cat Scan 07/21/24 14:[address] angio neck Stat Cat Scan 07/21/24 14:[address] head/brain wo con Stat Cat Scan 07/21/24 14:37 Completed BNP [NT Pro Brain Natriuretic Pep.] Stat Lab 07/21/24 14:26 Completed CBC w/Auto Diff [Complete Blood Count Auto Diff] Stat Lab 07/21/24 14:26 Completed CMP [Comprehensive Metabolic Panel] Stat Lab 07/21/24 14:26 Completed Drug Screen,Urine Stat Lab 07/21/24 17:11 Completed INR [Prothrombin Time INR] Stat Lab 07/21/24 14:26 Completed Magnesium Stat Lab 07/21/24 14:26 Completed Procalcitonin Stat Lab 07/21/24 14:26 Completed Rapid PCR Covid and Flu A/B Stat Lab 07/21/24 17:00 Completed Trop I [Troponin I] Stat Lab 07/21/24 14:26 Completed UA [Urinalysis and Microscopic] Stat Lab 07/21/24 17:11 Completed Blood Culture Stat Micro 07/21/24 15:38 Received VBG [Venous Blood Gas] Stat RT 07/21/24 14:39 Completed Medical Decision Narrative: In summary patient is a 69-year-old male who presents to the emergency department for evaluation of encephalopathy. Patient is initially with a blood pressure 140/101 tachycardic at 121 breathing 22 times a minute satting at 98% on room air upon arrival, with a temperature of 98.6. Physical exam is remarkable for a pleasantly confused 69-year-old male who is well-nourished well-developed in no acute distress. He is oriented only to person not place or circumstance. He has no focal neurologic deficits but has significant asthenia and his NIH stroke score is 5 primarily due to inability to hold his extremities still due to weakness. Cranial nerves II through XII are intact grossly to exam ProCentra clinical bilaterally to the bases without adventitious sounds. Patient has sinus tachycardia on the bedside monitor. Patient has no dependent edema noted. Patient has no abdominal tenderness on palpation. Differential diagnosis includes stroke versus sepsis versus gabapentin withdrawal versus intoxication etc. Initial workup will be conducted with hematologic labs blood cultures urinalysis urine drug screen VBG respiratory swabs. Initial interventions include gentle hydration for now. Initial workup reviewed by me Shows his white count is 13,000 with a globin hematocrit of 15.9 and 46.1 respectively with an absolute neutrophil count of 9.8 and INR 1.15 cm 10.5 NT proBNP of 550 troponin is 0.03 procalcitonin 0.059 a bland urinalysis and negative urine drug screen negative COVID and flu and my informal interpretation of his CT scan of his head and CTA of his head neck shows no acute processes prior to radiology read. . Upon repeat evaluation remains pleasantly confused despite initial intervention and GEORGE and I do not have a good explanation and there is diagnostic uncertainty whether not this is gabapentin withdrawal versus possible stroke however patient is outside of the intervention window given last known normal approximately 3 days ago. Given this had interactive discussion [facility] and discussed patient VAZQUEZ findings and patient management with the Natalie HDEZ and patient has been accepted to [facility] care of Dr. Palomino for further evaluation and care. I was consulted by the PAIGE, and we discussed the complexity of the problems being addressed. I approved the treatment and management plan for this patient's care in the Emergency Department, thus performing a substantive portion of the medical decision making. Malachi Staton MD Critical Care <CHRISTINE Andujar - Last Filed: 07/21/24 22:02> Critical Care Time Critical Care Time: No
--- NOTE | 2024-07-21 14:25 | ECG_ITS ---
APPROVED REPORT Exam: Resting ECG HR:124 bpm ECG Measurements Heart Rate 124 AXES NV 178 P 81 QRSd 82 QRS 53 QT 323 T 76 QTc 397 Conclusion SINUS TACHYCARDIA LOW QRS VOLTAGE IN PRECORDIAL LEADS [QRS DEFLECTION < 1.0 mV IN CHEST LEADS] Poor R wave progression, ANTERIOR MYOCARDIAL INFARCTION , OF INDETERMINATE AGE [40+ ms Q WAVE AND/OR ST/T ABNORMALITY IN V3/V4] PROBABLE INFERIOR MYOCARDIAL INFARCTION , PROBABLY OLD [35 ms Q WAVE IN II/aVF] ABNORMAL ECG No STEMI Electronically signed by : SELENA CRAMER, 07/24/2024 06:49:53
[2024-07-21 14:35] LABS: Basophils # 0.1 K/mm3 (0-0.2); Basophils % 0.5 % (0.1-2.0); Eosinophils % 0.2 % (0.1-12.0); Hematocrit 46.1 % (42.0-52.0); Hemoglobin 15.9 g/dL (14.1-18.0); Lymphocytes # 1.8 K/mm3 (0.7-4.5); Lymphocytes % 13.9 % (10-50); Mean Corpuscular HGB Conc 34.5 g/dL (31.8-35.4); Mean Corpuscular Hemoglobin 32.1 pg (27.0-31.2); Mean Corpuscular Volume 93.1 fl (80-94); Mean Platelet Volume 10.7 fl (7.4-10.4); Monocytes # 1.2 K/mm3 (0.1-1.0); Monocytes % 9.4 % (1.7-9.3); Neutrophils # 9.8 K/mm3 (1.8-7.8); Neutrophils % 75.7 % (37.0-80.0); Platelet Count 355 K/mm3 (142-424); Red Blood Count 4.95 M/mm3 (4.60-6.20); Red Cell Distribution Width 12.8 % (11.5-17.5)
--- NOTE | 2024-07-21 14:37 | CT_ITS ---
PROCEDURE INFORMATION: Exam: CTA Neck With Contrast Exam date and time: 07/21/2024 3:11 PM Age: 69 years old Clinical indication: Cognitive deficit; Age-related cognitive decline; Additional info: Encephalopathy TECHNIQUE: Imaging protocol: Computed tomographic angiography of the neck with contrast. Exam focused on the cervical segments of the vasculature. 3D rendering (Not supervised by radiologist): MIP and/or 3D reconstructed images were created by the technologist. Radiation optimization: All CT scans at this facility use at least one of these dose optimization techniques: automated exposure control; mA and/or kV adjustment per patient size (includes targeted exams where dose is matched to clinical indication); or iterative reconstruction. Contrast material: ISOVUE; Contrast volume: 80 ml; Contrast route: INTRAVENOUS (IV); COMPARISON: CT ANGIO HEAD 07/21/2024 3:11 PM FINDINGS: Right common carotid artery: No stenosis. No dissection or occlusion. Right internal carotid artery: There is minimal plaque at the right internal carotid artery origin. There is no stenosis. Right external carotid artery: No occlusion or stenosis of the origin. Left common carotid artery: No stenosis. No dissection or occlusion. Left internal carotid artery: No stenosis of the extracranial segment. No dissection or occlusion. Left external carotid artery: No occlusion or stenosis of the origin. Right vertebral artery: No stenosis. No dissection or occlusion. Left vertebral artery: No stenosis. No dissection or occlusion. Thyroid: A nonspecific 3 cm right thyroid mass is present. A follow-up thyroid ultrasound is recommended. Soft tissues: Normal. No significant soft tissue swelling. Bones/joints: Moderate/severe degenerative changes of the cervical spine are present. IMPRESSION: 1. No carotid or vertebral artery stenosis within the neck 2. A nonspecific 3 cm right thyroid mass is present. A follow-up thyroid ultrasound is recommended. COMMENTS: Consistent with the [employer]'s Incidental Findings Committee white paper (J Am Aparna Radiol 2015): In patients aged 35 years and older with an incidental thyroid nodule equal to or greater than 1.[address], MRI or extrathyroidal US, further evaluation with dedicated thyroid US is recommended for patients with normal life expectancy and without comorbidities. For smaller nodules without suspicious features, no further evaluation or follow up is recommended. REFERENCES: NASCET CRITERIA. The degree of stenosis in the cervical segment of the internal carotid artery is based on NASCET criteria. Normal is no stenosis. Mild is less than 50% stenosis. Moderate is 50-69% stenosis. Severe is 70% to 99% stenosis. Total occlusion is no detectable patent lumen.
--- NOTE | 2024-07-21 14:37 | CT_ITS ---
PROCEDURE INFORMATION: Exam: CT Head Without Contrast Exam date and time: 07/21/2024 3:11 PM Age: 69 years old Clinical indication: Altered mental status/memory loss; Additional info: Encephalopathy TECHNIQUE: Imaging protocol: Computed tomography of the head without contrast. Radiation optimization: All CT scans at this facility use at least one of these dose optimization techniques: automated exposure control; mA and/or kV adjustment per patient size (includes targeted exams where dose is matched to clinical indication); or iterative reconstruction. COMPARISON: Brain MRI from 02/10/2020 FINDINGS: Limitations: The study is mildly limited due to patient motion artifact. Brain: There is no acute intracranial hemorrhage, cerebral edema, or midline shift. Chronic microvascular ischemic changes are seen in the periventricular white matter. Age-related cerebral and cerebellar volume loss is present. Cerebral ventricles: Mild ex vacuo dilation of the lateral and third ventricles is noted. Paranasal sinuses: There is no acute sinusitis. Mastoid air cells: The mastoid air cells are clear. Orbital cavities: The included orbital structures are unremarkable. Bones: Unremarkable. No acute fracture. Soft tissues: Unremarkable. Vasculature: Atherosclerotic calcifications are seen involving the cavernous carotid arteries. IMPRESSION: 1. No acute intracranial abnormality. 2. Atrophy and chronic deep white matter ischemic changes.
--- NOTE | 2024-07-21 14:37 | CT_ITS ---
PROCEDURE INFORMATION: Exam: CTA Head With Contrast, Arteriography Exam date and time: 07/21/2024 3:11 PM Age: 69 years old Clinical indication: Cognitive deficit; Age-related cognitive decline; Additional info: Encephalopathy TECHNIQUE: Imaging protocol: Computed tomographic angiography of the head with contrast. Exam focused on the arteries. 3D rendering (Not supervised by radiologist): MIP and/or 3D reconstructed images were created by the technologist. Radiation optimization: All CT scans at this facility use at least one of these dose optimization techniques: automated exposure control; mA and/or kV adjustment per patient size (includes targeted exams where dose is matched to clinical indication); or iterative reconstruction. Contrast material: ISOVUE; Contrast volume: 80 ml; Contrast route: INTRAVENOUS (IV); COMPARISON: CT HEAD/BRAIN WO CON 07/21/2024 3:11 PM FINDINGS: ANTERIOR CIRCULATION: Right internal carotid artery: Intracranial segment is patent with no significant stenosis. No aneurysm. Right middle cerebral artery: No occlusion or significant stenosis. No aneurysm. Right anterior cerebral artery: No occlusion or significant stenosis. No aneurysm. Left internal carotid artery: Intracranial segment is patent with no significant stenosis. No aneurysm. Left middle cerebral artery: No occlusion or significant stenosis. No aneurysm. Left anterior cerebral artery: No occlusion or significant stenosis. No aneurysm. POSTERIOR CIRCULATION: Right vertebral artery: No occlusion or significant stenosis. No aneurysm. Left vertebral artery: No occlusion or significant stenosis. No aneurysm. Basilar artery: No occlusion or significant stenosis. No aneurysm. Right posterior cerebral artery: No occlusion or significant stenosis. No aneurysm. Left posterior cerebral artery: No occlusion or significant stenosis. No aneurysm. Brain: No definite mass, cerebral edema, or midline shift. Cerebral ventricles: No ventriculomegaly. Bones/joints: Unremarkable. No acute fracture. Soft tissues: Unremarkable. IMPRESSION: No large vessel stenosis or occlusion.
[2024-07-21 14:41] LABS: Albumin Level 4.6 g/dl (3.5-5.0); Chloride 107 mmol/L (98-107); Potassium 3.9 mmoL/L (3.5-5.1); Sodium 142 mmol/L (136-145)
[2024-07-21 14:44] LABS: Alanine Aminotransferase 23 U/L (12-78); Albumin/Globulin Ratio 1.8 (1.1-1.8); Alkaline Phosphatase 74 U/L (38-126); Anion Gap 16.9 mEq/L (5-15); Aspartate Amino Transferase 35 U/L (17-59); Bilirubin,Total 1.8 mg/dl (0.2-1.3); Blood Urea Nitrogen 35 mg/dl (9-20); Calcium 10.5 mg/dl (8.4-10.2); Carbon Dioxide 22 mmol/L (22.0-30.0); Creatinine Clearance Estimated 87 mL/min (50-200); Estimated Glomerular Filt Rate 67 ml/min (>60); GFR (African American) 81 ML/MIN (>60); Globulin 2.6 g/dL (1.3-3.2); Glucose 197 mg/dl (74-100); Total Protein,Serum 7.2 g/dl (6.3-8.2)
[2024-07-21 14:45] LABS: Magnesium 1.7 mg/dl (1.6-2.3)
[2024-07-21 14:56] LABS: Troponin I 0.03 ng/ml (0.00-0.034)
[2024-07-21 15:04] LABS: NT Pro Brain Natriuretic Pep. 550 pg/mL (0-125)
[2024-07-21 15:09] LABS: INR 1.15 (0.9-1.1); Prothrombin Time 12.4 seconds (9.2-12.1)
[2024-07-21 15:14] LABS: VBG Base Excess -5.8 mmol/L (-2.4-2.3); VBG HCO3 19.1 mmol/L (23-30); VBG Oxygen Saturation 99.6 % (50-70); VBG PCO2 32.1 mmol/L (35-51); VBG PH 7.39 mmol/L (7.31-7.41); VBG PO2 155.7 mmol/L (28-40); VBG Total CO2 20.1 mmol/L (23-27)
[2024-07-21 15:16] LABS: Lactate Venous 2.3 mmol/L (0.4-2.0)
[2024-07-21] MEDS: 0.9 % SODIUM CHLORIDE 50 ML VIAL 40 ML IV (15:21)
[2024-07-21] MEDS: IOPAMIDOL-370 (76%);100ML BOTTLE 80 ML IV (15:21)
[2024-07-21 15:23] LABS: Procalcitonin 0.059 ng/mL (0.0-2.0)
--- NOTE | 2024-07-21 16:44 | PC.NURSE ---
Call out to [facility] transfer for possible transfer.
--- NOTE | 2024-07-21 17:05 | PC.NURSE ---
swab sent to lab
--- NOTE | 2024-07-21 17:11 | PC.NURSE ---
Cath UA sent to lab
[2024-07-21 17:15] LABS: Coronavirus 19, PCR Not Detected (NotDetected); Influenza A, PCR Not Detected (NotDetected); Influenza B, PCR Not Detected (NotDetected)
[2024-07-21 17:19] LABS: Microscopic, Urine URINE MICROSCOPIC (MICROSCOPIC)
--- NOTE | 2024-07-21 17:36 | PC.NURSE ---
facesheet faxed to [facility]
[2024-07-21 17:53] LABS: Amphetamine/Metha Screen,Urine Negative ng/ml (<1000)
[2024-07-21 17:54] LABS: Barbiturates Screen,Urine Negative ng/ml (<200)
[2024-07-21 17:55] LABS: Benzodiazepines Screen,Urine Negative ng/ml (<200)
[2024-07-21 17:56] LABS: Cannabinoid Screen,Urine Negative ng/ml (<50); Cocaine Screen,Urine Negative ng/ml (<300)
[2024-07-21 17:57] LABS: Methadone Screen,Urine Negative ng/ml (<300)
[2024-07-21 17:58] LABS: Opiate Screen,Urine Negative ng/ml (<300)
[2024-07-21 17:59] LABS: Phencyclidine Screen,Urine Negative ng/ml (<25)
[2024-07-21 19:17] LABS: Reflex Lactic Add Lactic Reflex
[2024-07-21 19:25] LABS: Blood, Urine TRACE-I (Negative); Color,Urine YELLOW (Yellow); Glucose,Urine (UA) Negative (Negative); Ketones,Urine Negative (Negative); Leukocyte Esterase,Urine TRACE (Negative); Nitrate,Urine Negative (Negative); PH,Urine 5.5 (5.0-8.5); Protein,Urine TRACE (Negative); Specific Gravity, Urine >= 1.030 (1.005-1.030)
[2024-07-21 19:30] LABS: Bilirubin,Urine 2+ (Negative)
[2024-07-21 19:31] LABS: Appearance,Urine Slightly Cloudy (Clear)
[2024-07-21 19:40] LABS: Bacteria,Urine Trace /lpf
== END 2024-07-21 19:01 | disposition short-term general hospital (02) ==
PROVIDERS: Physician Assistant; Emergency Provider Emergency Medicine; PCP Nurse Practitioner Family
DX: G93.40 Encephalopathy, unspecified (principal); R41.82 Altered mental status, unspecified; R53.1 Weakness; R00.0 Tachycardia, unspecified; I10 Essential (primary) hypertension
CPT/HCPCS: 70450; 70496; 70498; 80053; 80307; 81001; 82803; 83735; 83880; 84145; 84484; 85025; 85610; 87040; 87636; 93005; 99285; Q9967

== ENCOUNTER 2024-10-19 11:45 | Outpatient (CLI) | payer MEDICARE, MEDICAID, SELFPAY | END 2024-10-19 23:59 | disposition home or self-care (01) | LOC: RT 11:46 | PROVIDERS: PCP Nurse Practitioner Family; Visit Provider Physician Assistant | DX: I47.20 Ventricular tachycardia, unspecified (principal); I63.9 Cerebral infarction, unspecified | CPT/HCPCS: 93270 ==